=== PATIENT | male | born 1930 | race Caucasian/White ===

== ENCOUNTER 2017-07-31 12:29 | Emergency (ER) | payer MEDICARE, OTHER ==
--- NOTE | 2017-07-31 14:25 | ER Document Report ---
ED Medical Screen (RME) - General Chief Complaint: Diarrhea Stated Complaint: DIARRHEA Time Seen by Provider: 07/31/17 14:16 Notes: RME DISCLOSURE I have seen this patient as part of a Rapid Medical Evaluation and, if applicable, placed any initially appropriate orders. The patient will be seen and fully evaluated, including a full history and physical exam, by a provider ( in Main ED or Fast Track) when a room becomes available. 86M here w c/o diarrhea past 4 weeks. No n/v fevers chills abd pain. No recent antibiotics or hospitalizations. He has not been camping or travel to a foreign country. No known sick contacts. No prior history of colitis EXAM No abdominal tenderness to palpation TRAVEL OUTSIDE OF THE [place] IN LAST 30 DAYS: No - Related Data Allergies/Adverse Reactions: cephalexin [From Keflex] Allergy (Verified 07/31/17 14:13) gatifloxacin [From Tequin] Allergy (Verified 07/31/17 14:13) Penicillins Allergy (Verified 07/31/17 14:13) red dye Allergy (Verified 07/31/17 14:13) Past Medical History - Social History Chew tobacco use (# tins/day): No Frequency of alcohol use: None Drug Abuse: None - Past Medical History Cardiac Medical History: Reports: Hx Congestive Heart Failure, Hx Heart Attack, Hx Hypertension Renal/ Medical History: Denies: Hx Peritoneal Dialysis Past Surgical History: Reports: Hx Cardiac Surgery - "open heart" x2 Physical Exam - Vital signs Vitals: Temp Pulse Resp BP Pulse Ox 97.8 F 60 20 104/59 L 97 07/31/17 13:11 07/31/17 13:11 07/31/17 13:11 07/31/17 13:11 07/31/17 13:11 Course - Vital Signs Vital signs: Temp Pulse Resp BP Pulse Ox 97.8 F 60 20 104/59 L 97 07/31/17 13:11 07/31/17 13:11 07/31/17 13:11 07/31/17 13:11 07/31/17 13:11
[2017-07-31 15:22] LABS: ABSOLUTE BASOPHILS # (AUTO) 0.1 10^3/uL (0.0-0.2); ABSOLUTE EOSINOPHILS # (AUTO) 0.4 10^3/uL (0.0-0.6); ABSOLUTE LYMPHOCYTES (AUTO) 1.6 10^3/uL (0.5-4.7); ABSOLUTE MONOCYTES (AUTO) 0.8 10^3/uL (0.1-1.4); ABSOLUTE NEUT (AUTO) 6.6 10^3/uL (1.7-8.2); BASOPHILS % (AUTO) 0.7 % (0-2); EOSINOPHILS % (AUTO) 4.4 % (0-6); HEMATOCRIT 42.6 % (37.9-51.0); HEMOGLOBIN 14.2 g/dL (13.5-17.0); LYMPHOCYTES % (AUTO) 16.7 % (13-45); MEAN CORPUSCULAR HEMOGLOBIN 31.4 pg (27.0-33.4); MEAN CORPUSCULAR HGB CONC 33.4 g/dL (32.0-36.0); MEAN CORPUSCULAR VOLUME 94 fl (80-97); MONOCYTES % (AUTO) 8.9 % (3-13); PLATELET COUNT 120 10^3/uL (150-450); RED BLOOD COUNT 4.53 10^6/uL (4.35-5.55); SEGMENTED NEUTROPHILS % (AUTO) 69.3 % (42-78); TOTAL CELLS COUNTED % (AUTO) 100 %; WHITE BLOOD COUNT 9.5 10^3/uL (4.0-10.5)
[2017-07-31 15:37] LABS: ALANINE AMINOTRANSFERASE 30 U/L (21-72); ALBUMIN 4.4 g/dL (3.5-5.0); ALKALINE PHOSPHATASE 63 U/L (38-126); ANION GAP 11 (5-19); ASPARTATE AMINO TRANSFERASE 25 U/L (17-59); BILIRUBIN,DIRECT 0.5 mg/dL (0.0-0.4); BLOOD UREA NITROGEN 49 mg/dL (7-20); CALCIUM 10.2 mg/dL (8.4-10.2); CARBON DIOXIDE 24 mmol/L (22-30); CHLORIDE 109 mmol/L (98-107); GLUCOSE 77 mg/dL (75-110); LIPASE 122.3 U/L (23-300); MAGNESIUM 2.3 mg/dL (1.6-2.3); PHOSPHORUS 3.8 mg/dL (2.5-4.5); POTASSIUM 5.5 mmol/L (3.6-5.0); SODIUM 143.6 mmol/L (137-145); TOTAL PROTEIN 6.5 g/dL (6.3-8.2)
--- NOTE | 2017-07-31 16:46 | ER Document Report ---
ED General - General Mode of Arrival: Ambulatory Information source: Patient TRAVEL OUTSIDE OF THE [place] IN LAST 30 DAYS: No <JULIETTE JULES - Last Filed: 07/31/17 17:02> <CLARITA HELMS - Last Filed: 07/31/17 18:44> - General Chief Complaint: Diarrhea Stated Complaint: DIARRHEA Time Seen by Provider: 07/31/17 14:16 Notes: Patient is an 86 year old male with a history of CHF, Type 2 Diabetes, hypertension, open heart surgery x2 presents to the emergency department complaining of diarrhea onset 4 weeks. Patient states that he has had loose stool everyday, once a day for the last 4 weeks. Patient states he would have this episode around 1000 everyday. Patient states there was approximately 3 days where he did not have diarrhea. Patient denies blood in stool or mucus, nausea, vomiting, chills, abdominal pain, or changes in food. Patient also denies any new medications, taking antibiotics, or recent travels. Patient states he has taken Imodium to alleviate his symptoms. (JULIETTE JULES) - Related Data Allergies/Adverse Reactions: cephalexin [From Keflex] Allergy (Verified 07/31/17 14:13) gatifloxacin [From Tequin] Allergy (Verified 07/31/17 14:13) Penicillins Allergy (Verified 07/31/17 14:13) red dye Allergy (Verified 07/31/17 14:13) Past Medical History - General Information source: Patient - Social History Smoking Status: Former Smoker Chew tobacco use (# tins/day): No Frequency of alcohol use: None Drug Abuse: None Patient has suicidal ideation: No Patient has homicidal ideation: No - Past Medical History Cardiac Medical History: Reports: Hx Congestive Heart Failure, Hx Heart Attack, Hx Hypertension Past Surgical History: Reports: Hx Cardiac Surgery - "open heart" x2 <JULIETTE JULES - Last Filed: 07/31/17 17:02> - Social History Family History: Reviewed & Not Pertinent <CLARITA HELMS - Last Filed: 07/31/17 18:44> Review of Systems - Review of Systems Constitutional: No symptoms reported EENT: No symptoms reported Cardiovascular: No symptoms reported Respiratory: No symptoms reported Gastrointestinal: See HPI, Diarrhea Genitourinary: No symptoms reported Male Genitourinary: No symptoms reported Musculoskeletal: No symptoms reported Skin: No symptoms reported Hematologic/Lymphatic: No symptoms reported Neurological/Psychological: No symptoms reported -: Yes All other systems reviewed and negative <JULIETTE JULES - Last Filed: 07/31/17 17:02> Physical Exam <JULIETTE JULES - Last Filed: 07/31/17 17:02> <CLARITA HELMS - Last Filed: 07/31/17 18:44> - Vital signs Vitals: Temp Pulse Resp BP Pulse Ox 97.8 F 60 20 104/59 L 97 07/31/17 13:11 07/31/17 13:11 07/31/17 13:11 07/31/17 13:11 07/31/17 13:11 - Notes Notes: GENERAL: Alert, interacts well. No acute distress. HEAD: Normocephalic, atraumatic. EYES: Pupils equal, round, and reactive to light. Extraocular movements intact. ENT: Oral mucosa moist, tongue midline. NECK: Full range of motion. Supple. Trachea midline. LUNGS: Clear to auscultation bilaterally, no wheezes, rales, or rhonchi. No respiratory distress. HEART: Faint heart sounds, irregularly irregular. No murmurs, gallops, or rubs. ABDOMEN: Soft, non-tender. Non-distended. Bowel sounds present in all 4 quadrants. EXTREMITIES: Moves all 4 extremities spontaneously. No edema, radial and dorsalis pedis pulses 2/4 bilaterally. No cyanosis. NEUROLOGICAL: Alert and oriented x3. Normal speech. PSYCH: Normal affect, normal mood. SKIN: Warm, dry, normal turgor. No rashes or lesions noted. (JULIETTE JULES) Course - Laboratory Result Diagrams: 07/31/17 15:00 07/31/17 15:00 <JULIETTE JULES - Last Filed: 07/31/17 17:02> - Laboratory Result Diagrams: 07/31/17 15:00 07/31/17 15:00 <CLARITA HELMS - Last Filed: 07/31/17 18:44> - Re-evaluation Re-evalutation: 07/31/17 17:30 CBC grossly unremarkable, no anemia, he does have slightly low platelets at 120 , CMP shows elevated potassium at 5.5 and acute on chronic renal failure with a BUN of 49 and creatinine of 2.55, I cannot tell how acute this truly is as the last kidney function we have on him is from 2016. Patient thinks he has a history of kidney failure but does not know how bad it is. Laboratory studies are otherwise unremarkable. EKG is being checked to look for peaked T waves. 07/31/17 18:43 No peak T waves (CLARITA HELMS) - Vital Signs Vital signs: Temp Pulse Resp BP Pulse Ox 97.8 F 58 L 18 129/81 H 98 07/31/17 13:11 07/31/17 18:36 07/31/17 18:36 07/31/17 18:36 07/31/17 18:36 - Laboratory Laboratory results interpreted by me: 07/31/17 07/31/17 15:00 15:00 RDW 15.0 H Plt Count 120 L Potassium 5.5 H Chloride 109 H BUN 49 H Creatinine 2.55 H Est GFR ( Amer) 29 L Est GFR (Non-Af Amer) 24 L Direct Bilirubin 0.5 H - EKG Interpretation by Me Additional EKG results interpreted by me: 07/31/17 17:54 EKG shows atrial paced complexes at a rate of 60, right bundle branch block and left posterior fascicular block, no ST segment elevations or depressions per my interpretation. (CLARITA HELMS) Discharge <JULIETTE JULES - Last Filed: 07/31/17 17:02> <CLARITA HELMS - Last Filed: 07/31/17 18:44> - Discharge Clinical Impression: Hyperkalemia, diminished renal excretion Diarrhea Qualifiers: Diarrhea type: unspecified type Qualified Code(s): R19.7 - Diarrhea, unspecified Acute on chronic renal failure Qualifiers: Acute renal failure type: unspecified Chronic kidney disease stage: unspecified stage Qualified Code(s): N17.9 - Acute kidney failure, unspecified Condition: Stable Disposition: HOME, SELF-CARE Additional Instructions: I am not certain why you having diarrhea. We do not have any evidence of an infectious cause of diarrhea at this time. I did do a little research and the MSM supplement that you are taking can sometimes cause diarrhea. Please consider stopping the supplement. It will be very important for you to follow-up with a GI doctor if your diarrhea persists. The next time you have a loose bowel movement please bring a sample of it to the lab to be tested for C. difficile and other forms of infectious diarrhea. Please follow-up with a GI doc within the next month if your diarrhea persists. Today your potassium was slightly elevated. Please avoid taking any potassium containing supplements and avoid foods that are high in potassium such as bananas and potatoes and orange juice. Today your lab work had some kidney damage on it. You will need to have your kidney function and your potassium rechecked within a week. Forms: Follow-Up Laboratory Testing Referrals: PORTER VILLAVICENCIO MD [ACTIVE STAFF] - Follow up in 1 month TAYLER MARMOLEJO MD [NO LOCAL MD] - Follow up in 1 week Scribe Attestation: 07/31/17 18:44 I personally performed the services described in the documentation, reviewed and edited the documentation which was dictated to the scribe in my presence, and it accurately records my words and actions. (CLARITA HELMS) Scribe Documentation - Scribe Written by Gordo:: Gordo Reynoso, 07/31/2017 17:05 acting as scribe for :: Alma <JULIETTE JULES - Last Filed: 07/31/17 17:02>
[2017-07-31 18:37] VITALS: BP 129/81
--- NOTE | 2017-08-01 09:31 | EKG REPORT ---
SEVERITY:- ABNORMAL ECG - ATRIAL-PACED COMPLEXES RBBB AND LPFB : Confirmed by: Alesha Jacobo 01-Aug-2017 09:30:35
== END 2017-07-31 18:37 | disposition home or self-care (01) ==
LOC: ER 12:29
DX: R19.7 Diarrhea, unspecified (principal); E11.22 Type 2 diabetes mellitus with diabetic chronic kidney disease; I12.9 Hypertensive chronic kidney disease with stage 1 through stage 4 chronic kidney disease, or unspecified chronic kidney disease; N18.9 Chronic kidney disease, unspecified; N17.9 Acute kidney failure, unspecified; E87.5 Hyperkalemia; I45.2 Bifascicular block; I25.2 Old myocardial infarction; Z88.1 Allergy status to other antibiotic agents; Z88.0 Allergy status to penicillin; Z91.048 Other nonmedicinal substance allergy status; Z87.891 Personal history of nicotine dependence
CPT/HCPCS: 36415; 80053; 83690; 83735; 84100; 85025; 93005; 93010; 99284

== ENCOUNTER 2018-07-22 17:47 | Inpatient (IN) | payer MEDICARE ==
--- NOTE | 2018-07-22 18:00 | ER Document Report ---
ED Fall - General Chief Complaint: Hip Pain Stated Complaint: FALL/LEFT HIP PAIN Time Seen by Provider: 07/22/18 17:59 Primary Care Provider: CLARITA HELMS DO [ACTIVE PROVISIONAL STAFF] - Follow up as needed Mode of Arrival: Stretcher Information source: Patient Notes: HISTORY OF PRESENT ILLNESS: Patient is an 87-year-old male with a past medical history of atrial fibrillation, heart failure, and coronary artery disease who presents with left hip pain after mechanical fall in the [employer] parking lot. Patient denies hitting his head or having any other injuries, no loss of consciousness, no vision changes, no weakness of the extremities, no numbness/tingling of the extremities. Location: Left hip Onset: Sudden Provocation: Bearing weight, movement Quality: Aching, soreness Radiation: Down the right leg Severity: Mild currently, moderate to severe when trying to walk Timing: Episodic occurring prior to arrival Events leading up to the injury: "I think I stumbled pushing the cart in the parking lot, landed on the left hip and was unable to stand" REVIEW OF SYSTEMS: CONSTITUTIONAL : Denies fever or chills, no sweats. Denies recent illness. EENT: Denies eye, ear, throat, or mouth pain or symptoms. Denies nasal or sinus congestion. CARDIOVASCULAR: Denies chest pain. RESPIRATORY: Denies cough, cold, or chest congestion. Denies shortness of b reath, difficulty breathing, or wheezing. GASTROINTESTINAL: Denies abdominal pain. Denies nausea, vomiting, or diarrhea. Denies constipation. GENITOURINARY: Denies difficulty urinating, painful urination, burning, frequency, or blood in urine. MUSCULOSKELETAL: Positive for left hip pain. Denies neck or back pain. SKIN: Denies rash or skin lesions. HEMATOLOGIC : Denies easy bruising or bleeding. LYMPHATIC: Denies swollen, enlarged glands. NEUROLOGICAL: Denies altered mental status or loss of consciousness. Denies headache. Denies weakness or paralysis or loss of use of either side. Denies problems with gait or speech. Denies sensory or motor loss. PSYCHIATRIC: Denies anxiety or stress or depression. All other systems reviewed and negative. PHYSICAL EXAMINATION: GENERAL: Well-appearing, well-nourished and in no acute distress. HEAD: Atraumatic, normocephalic. No scalp deformity, depression, or crepitance. EYES: Pupils are 3 mm and equal/round/reactive to light, extraocular movements intact, sclera anicteric, conjunctiva are normal. ENT: Nares patent bilaterally, oropharynx clear without exudates or palatal petechia. Moist mucous membranes. No tonsil hypertrophy. NECK: Normal range of motion, supple without lymphadenopathy. LUNGS: Breath sounds present, equal, and clear to auscultation bilaterally. No wheezes, rales, or rhonchi. HEART: Regular rate and rhythm without murmurs, rubs, or gallops. 2+ peripheral pulses. Normal capillary refill. ABDOMEN: Soft, nontender, nondistended. Normoactive bowel sounds. No guarding, no rebound. No masses appreciated. BACK: Normal contour, no midline tenderness. Rectal exam deferred. GENITAL: Deferred. EXTREMITIES: Reduced range of motion to the left leg secondary to pain, no obvious deformity or shortening or rotation of the left leg. Mild pain on palpation to the left lateral hip, no ecchymoses or abrasions noted. No pitting or edema. No cyanosis. NEUROLOGICAL: No focal neurological deficits. Moves all extremities spontaneously and on command. PSYCH: Normal mood, normal affect. No suicidal thoughts/ideations. No homocidal thoughts/ideations. No hallucinations. SKIN: Warm, dry, normal turgor, no rashes or lesions noted. ASSESSMENT AND PLAN: This patient is an 87-year-old male who presents with pain to the left hip. Concern for fracture versus contusion versus less likely dislocation. 1. Will obtain x-rays and reassess after pain medications. 2. Will obtain orthopedic consult if x-rays show acute injury. TRAVEL OUTSIDE OF THE [place] IN LAST 30 DAYS: No - Related data Allergies/Adverse Reactions: cephalexin [From Keflex] Allergy (Verified 07/31/17 14:13) gatifloxacin [From Tequin] Allergy (Verified 07/31/17 14:13) Penicillins Allergy (Verified 07/31/17 14:13) red dye Allergy (Verified 07/31/17 14:13) Past Medical History - General Information source: Patient - Social History Smoking Status: Never Smoker Chew tobacco use (# tins/day): No Frequency of alcohol use: None Drug Abuse: None Lives with: Family Family History: Reviewed & Not Pertinent Patient has suicidal ideation: No Patient has homicidal ideation: No - Past Medical History Cardiac Medical History: Reports: Hx Congestive Heart Failure, Hx Heart Attack, Hx Hypertension Pulmonary Medical History: Reports: None EENT Medical History: Reports: None Neurological Medical History: Reports: None Endocrine Medical History: Reports: None Renal/ Medical History: Reports: None. Denies: Hx Peritoneal Dialysis Malignancy Medical History: Reports None GI Medical History: Reports: None Musculoskeletal Medical History: Reports None Skin Medical History: Reports None Psychiatric Medical History: Reports: None Traumatic Medical History: Reports: None Infectious Medical History: Reports: None Past Surgical History: Reports: Hx Cardiac Surgery - "open heart" x2 - Immunizations Immunizations up to date: Yes Hx Diphtheria, Pertussis, Tetanus Vaccination: Yes History of Influenza Vaccine for 03/2017 - 08/2017 Season: Yes Course - Re-evaluation Re-evalutation: 07/22/18 20:18 X-ray shows mildly displaced left acetabular fracture. Orthopedic consult has been obtained and they recommend preoperative workup with a CT scan of the pelvis for operative planning. Patient is admitted to the hospitalist. - Laboratory Result Diagrams: 07/22/18 19:40 07/22/18 19:40 - Diagnostic Test Radiology reviewed: Image reviewed, Reports reviewed - EKG Interpretation by Ct EKG shows normal: Sinus rhythm Rate: Normal Rhythm: A.Fib [place]/QRS: RBBB Voltage: No: Increased voltage, Consistant with LVH, Decreased voltage, Throughout, Limb leads P Waves: No: ALEX, LAE, Absent, AV Dissociation, Other Heart block present: No: 1st Degree, Mobitz 1, Mobitz 2, CHB (3rd degree block) When compared to previous EKG there are: No significant change - Consults Dr. Jules Time consulted: 19:17 - obtain CT pelvis and admit to the Hospitalist Consulted provider: will see as inpatient Dr. Hemphill Time consulted: 19:39 - will admit Consulted provider: will come to ER Discharge - Discharge Clinical Impression: Closed left acetabular fracture Qualifiers: Encounter type: initial encounter Sublocation of acetabulum: unspecified portion of acetabulum Fracture alignment: displaced Qualified Code(s): S32.402A - Unspecified fracture of left acetabulum, initial encounter for closed fracture Condition: Good Admitting Provider: Hospitalist Unit Admitted: Telemetry Referrals: KLOCEK,CLARITA, DO [ACTIVE PROVISIONAL STAFF] - Follow up as needed
[2018-07-22] MEDS ORDERED: MORPHINE SULFATE 10 MG/ML INJ IV ONE (18:48)
[2018-07-22] MEDS ORDERED: ONDANSETRON HCL INJ/PF 4 MG/2 ML SDV IV ONE (18:48)
--- NOTE | 2018-07-22 18:50 | RADIOLOGY REPORT (SQ) ---
EXAM DESCRIPTION: HIP LEFT AP/LATERAL COMPLETED DATE/TIME: 07/22/2018 6:32 pm REASON FOR STUDY: bed 15 left hip s/p fall COMPARISON: None. NUMBER OF VIEWS: Two views. TECHNIQUE: AP pelvis and additional frog-leg view of the left hip. LIMITATIONS: None. FINDINGS: MINERALIZATION: Normal. LEFT HIP: Mildly displaced fracture of the acetabulum. No fracture or dislocation of the femoral hea d. No worrisome bone lesions. RIGHT HIP: No fracture or dislocation. No worrisome bone lesions. PUBIS AND ISCHIUM: No fracture. PELVIS: Mildly displaced fracture of the left acetabulum. SACRUM: No fracture or dislocation. No worrisome bone lesions. LOWER LUMBAR SPINE: No fracture or dislocation. No worrisome bone lesions. No significant disc disea se. SOFT TISSUES: No findings. OTHER: Metallic implants in the prostate. IMPRESSION: MILDLY DISPLACED FRACTURE OF THE LEFT ACETABULUM. TECHNICAL DOCUMENTATION: JOB ID: [id number] [employer]- All Rights Reserved Reading location - IP/workstation name: [email or web address]
--- NOTE | 2018-07-22 19:16 | RADIOLOGY REPORT (SQ) ---
EXAM DESCRIPTION: CHEST SINGLE VIEW COMPLETED DATE/TIME: 07/22/2018 7:02 pm REASON FOR STUDY: Preop COMPARISON: None. EXAM PARAMETERS: NUMBER OF VIEWS: One view. TECHNIQUE: Single frontal radiographic view of the chest acquired. RADIATION DOSE: NA LIMITATIONS: None. FINDINGS: LUNGS AND PLEURA: No opacities, masses or pneumothorax. No pleural effusion. MEDIASTINUM AND HILAR STRUCTURES: No masses. Contour normal. HEART AND VASCULAR STRUCTURES: No cardiomegaly. Old sternotomy and CABG BONES: No acute findings. HARDWARE: Left-sided dual lead pacemaker OTHER: No other significant finding. 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 No acute infiltrates TECHNICAL DOCUMENTATION: JOB ID: [id number] [employer]- All Rights Reserved Reading location - IP/workstation name: [email or web address]
[2018-07-22 20:08] LABS: INTERNATIONAL RATION (INR) 1.25; PROTHROMBIN TIME 16.3 SEC (11.4-15.4)
[2018-07-22 20:09] LABS: PARTIAL THROMBOPLASTIN TIME 40.3 SEC (23.5-35.8)
[2018-07-22] MEDS ORDERED: MAG HYDROX/AL HYDROX/SIMETH SUSP 30 ML UDCUP PO PRN (20:09)
[2018-07-22] MEDS ORDERED: ONDANSETRON HCL INJ/PF 4 MG/2 ML SDV IV PRN (20:09)
[2018-07-22] MEDS ORDERED: MAGNESIUM HYDROXIDE SUSP 30 ML UDCUP PO PRN (20:09)
[2018-07-22] MEDS ORDERED: IPRATROPIUM/ALBUTEROL 0.5-2.5 MG/3 ML AMPUL NEB PRN (20:09)
[2018-07-22] MEDS ORDERED: ACETAMINOPHEN 325 MG TABLET PO PRN (20:09)
[2018-07-22 20:13] LABS: ABSOLUTE BASOPHILS # (AUTO) 0.1 10^3/uL (0.0-0.2); ABSOLUTE EOSINOPHILS # (AUTO) 0.1 10^3/uL (0.0-0.6); ABSOLUTE LYMPHOCYTES (AUTO) 0.8 10^3/uL (0.5-4.7); ABSOLUTE MONOCYTES (AUTO) 1.1 10^3/uL (0.1-1.4); ABSOLUTE NEUT (AUTO) 12.2 10^3/uL (1.7-8.2); BASOPHILS % (AUTO) 0.5 % (0-2); HEMOGLOBIN 13.8 g/dL (13.5-17.0); LYMPHOCYTES % (AUTO) 5.7 % (13-45); MEAN CORPUSCULAR HEMOGLOBIN 30.9 pg (27.0-33.4); MEAN CORPUSCULAR HGB CONC 33.6 g/dL (32.0-36.0); MEAN CORPUSCULAR VOLUME 92 fl (80-97); MONOCYTES % (AUTO) 7.6 % (3-13); RED BLOOD COUNT 4.46 10^6/uL (4.35-5.55); SEGMENTED NEUTROPHILS % (AUTO) 85.2 % (42-78); TOTAL CELLS COUNTED % (AUTO) 100 %; WHITE BLOOD COUNT 14.3 10^3/uL (4.0-10.5)
[2018-07-22 20:14] LABS: ALANINE AMINOTRANSFERASE 20 U/L (21-72); ALBUMIN 4.1 g/dL (3.5-5.0); ALKALINE PHOSPHATASE 57 U/L (38-126); ANION GAP 8 (5-19); ASPARTATE AMINO TRANSFERASE 24 U/L (17-59); BILIRUBIN,DIRECT 0.3 mg/dL (0.0-0.4); BILIRUBIN,TOTAL 0.9 mg/dL (0.2-1.3); BLOOD UREA NITROGEN 43 mg/dL (7-20); CALCIUM 9.2 mg/dL (8.4-10.2); CARBON DIOXIDE 26 mmol/L (22-30); CHLORIDE 110 mmol/L (98-107); CREATINE KINASE 34 U/L (55-170); GLUCOSE 164 mg/dL (75-110); POTASSIUM 5.4 mmol/L (3.6-5.0); SODIUM 143.6 mmol/L (137-145)
[2018-07-22 20:16] LABS: APPEARANCE,URINE SLIGHTLY-CLOUDY; BILIRUBIN,URINE NEGATIVE (NEGATIVE); COLOR,URINE YELLOW; GLUCOSE, URINE NEGATIVE (NEGATIVE); KETONES,URINE NEGATIVE (NEGATIVE); LEUKOCYTE ESTERASE,URINE NEGATIVE (NEGATIVE); NITRITE,URINE NEGATIVE (NEGATIVE); PROTEIN,URINE NEGATIVE (NEGATIVE); URINE SPECIFIC GRAVITY 1.016; UROBILINOGEN,URINE NEGATIVE mg/dL (<2.0)
--- NOTE | 2018-07-22 20:24 | RADIOLOGY REPORT (SQ) ---
EXAM DESCRIPTION: CT PELVIS WITHOUT IV CONTRAST COMPLETED DATE/TME: 07/22/2018 19:17 CLINICAL HISTORY: 87 years, Male, Pelvis fracture COMPARISON: Plain films from today's date TECHNIQUE: 510 Images stored on PACS. All CT scanners at this facility use dose modulation, iterative reconstruction, and/or weight based dosing when appropriate to reduce radiation dose to as low as reasonably achievable (ALARA). [facility]: Dose Right [facility]: CareDose [facility]: Dose Right [facility]: Teradose 4D [facility]: [employer] LIMITATIONS: None. FINDINGS: Limited evaluation of intrapelvic structures shows moderate to severe atheromatous changes. Large amount of stool in the colon. Sigmoid diverticulosis. Multiple prostate seeds are present in the pelvis. There is a small amount of hemoperitoneum with blood products extending along the left paracolic gutter into the pelvis. Inflammatory changes and a poorly defined hematoma surrounds the urinary bladder. Subjective urinary bladder wall thickening. The possibility of urinary bladder injury cannot be entirely excluded. As described on plain film, there is comminuted mildly displaced fracture deformities of the left bony acetabulum/ileum. Hematoma formation of the left iliopsoas musculature. Minimally displaced fracture fragments are present. No discrete femur fracture. Degenerative changes lumbar spine. IMPRESSION: Comminuted, mildly displaced fracture deformity of the left ilium/bony acetabulum with mildly displaced/avulsed fracture fragments. Associated hematoma formation of the left iliopsoas musculature. There is also inflammation with hematoma extending into the pelvis and surrounding the urinary bladder. Subjective urinary bladder wall thickening. Correlate with urinalysis. The possibility of urinary bladder injury is not entirely excluded. TECHNICAL DOCUMENTATION: Quality ID # [id number]: Final reports with documentation of one or more dose reduction techniques (e.g., Automated exposure control, adjustment of the mA and/or kV according to patient size, use of iterative reconstruction technique) copyright 2010 [employer]- All Rights Reserved
[2018-07-22 20:26] LABS: CREATINE KINASE MB 0.43 ng/mL (<4.55); TROPONIN I 0.024 ng/mL
[2018-07-22 20:30] LABS: PLATELET COUNT 99 10^3/uL (150-450)
[2018-07-22] MEDS ORDERED: LACTULOSE SYRUP 20 GM/30 ML UDCUP PO ONE (20:32)
[2018-07-22] MEDS ORDERED: NORMAL SALINE 1000 ML 1,000 ML IV SCH (20:45)
[2018-07-22] MEDS ORDERED: (PENDING PHARMACY ID) (Carvedilol [Coreg 25 Mg Tablet] 1 TAB) PO SCH (22:00)
[2018-07-22] MEDS: CARVEDILOL 12.5 MG TABLET PO SCH (22:04)
[2018-07-22] MEDS: HEPARIN SOD (PORCINE) 5,000 UNIT/ML 1 ML SYRINGE SUBCUT SCH (23:46)
--- NOTE | 2018-07-23 05:05 | PDOC H&P ---
History of Present Illness Admission Date/PCP: 07/22/18 20:07 MCKAY CHOUDHARY DO Patient complains of: Left hip pain History of Present Illness: SOHAIL GALVAN is a 87 year old male with a past medical history of coronary artery disease, congestive heart failure, atrial fibrillation status post permanent pacemaker AICD placement, diabetes and stage IV chronic kidney disease. He presents after tripping and falling to the ground striking his left hip resulting in pain. He denies prior chest pain palpitations, nausea vomiting or subsequent loss of consciousness or head injury. He denies weakness, numbness to the extremities. In the emergency room he is found to have thrombocytopenia of 99, hyperkalemia 5.4, creatinine of 1.8 and is referred to the hospitalist for admission. He denies recent falls, new medications, history of complication with anesthesia . Prior to his injury he was able to walk with a walker between 20 and 30 feet. Past Medical History Cardiac Medical History: Reports: Atrial Fibrillation, Congestive Heart Failure, Myocardial Infarction, Hypertension Denies: Pulmonary Embolism Pulmonary Medical History: Reports: None EENT Medical History: Reports: None Neurological Medical History: Reports: None Endocrine Medical History: Reports: None Renal/ Medical History: Reports: Chronic Kidney Disease Malignancy Medical History: Reports: None GI Medical History: Reports: None Musculoskeltal Medical History: Reports: None Skin Medical History: Reports: None Psychiatric Medical History: Reports: None Traumatic Medical History: Reports: None Hematology: Reports: Anemia Infectious Medical History: Reports: None Past Surgical History Past Surgical History: Reports: Internal Defibrillator, Pacemaker Social History Information Source: Patient Lives with: Family Smoking Status: Never Smoker Frequency of Alcohol Use: None Drugs: None - Advance Directive Resuscitation Status: Full Code Family History Family History: Hypertension Parental Family History Reviewed: Yes Children Family History Reviewed: Yes Sibling(s) Family History Reviewed.: Yes Medication/Allergy Home Medications: Allopurinol [Zyloprim 300 mg Tablet] 300 mg PO DAILY 07/22/18 Aspirin [Adult Aspirin] 81 mg PO DAILY 07/22/18 Carvedilol [Coreg 25 mg Tablet] 1 tab PO Q12 07/22/18 Meloxicam [Mobic] 7.5 mg PO DAILY 07/22/18 Sacubitril/Valsartan [Entresto 97 mg/103 mg Tablet] 1 tab PO BID 07/22/18 Allergies/Adverse Reactions: prednisone Allergy (Mild, Verified 07/22/18 23:59) Hives cephalexin [From Keflex] Allergy (Verified 07/31/17 14:13) gatifloxacin [From Tequin] Allergy (Verified 07/31/17 14:13) Penicillins Allergy (Verified 07/31/17 14:13) red dye Allergy (Verified 07/31/17 14:13) Review of Systems Constitutional: ABSENT: chills, fever(s), headache(s), weight gain, weight loss Eyes: ABSENT: visual disturbances Ears: ABSENT: hearing changes Cardiovascular: ABSENT: chest pain, dyspnea on exertion, edema, orthropnea, palpitations Respiratory: ABSENT: cough, hemoptysis Gastrointestinal: ABSENT: abdominal pain, constipation, diarrhea, hematemesis, hematochezia, nausea, vomiting Genitourinary: ABSENT: dysuria, hematuria Musculoskeletal: ABSENT: joint swelling Integumentary: ABSENT: rash, wounds Neurological: ABSENT: abnormal gait, abnormal speech, confusion, dizziness, focal weakness, syncope Psychiatric: ABSENT: anxiety, depression, homidical ideation, suicidal ideation Endocrine: ABSENT: cold intolerance, heat intolerance, polydipsia, polyuria Hematologic/Lymphatic: ABSENT: easy bleeding, easy bruising Physical Exam Vital Signs: Temp Pulse Resp BP Pulse Ox 60 20 127/77 H 94 07/23/18 02:00 07/22/18 22:01 07/22/18 22:00 07/22/18 22:01 Intake & Output 07/21/18 07/22/18 07/23/18 11:59 11:59 11:59 Weight 97.522 kg General appearance: PRESENT: cooperative, mild distress, well-developed, well- nourished Head exam: PRESENT: atraumatic, normocephalic Eye exam: PRESENT: conjunctiva pink, EOMI, PERRLA. ABSENT: scleral icterus Ear exam: PRESENT: normal external ear exam Mouth exam: PRESENT: moist, tongue midline Neck exam: ABSENT: carotid bruit, JVD, lymphadenopathy, thyromegaly Respiratory exam: PRESENT: clear to auscultation galo. ABSENT: rales, rhonchi, wheezes Cardiovascular exam: PRESENT: RRR. ABSENT: diastolic murmur, rubs, systolic murmur Pulses: PRESENT: normal dorsalis pedis pul Vascular exam: PRESENT: normal capillary refill GI/Abdominal exam: PRESENT: normal bowel sounds, soft. ABSENT: distended, guarding, mass, organolmegaly, rebound, tenderness Rectal exam: PRESENT: deferred Extremities exam: PRESENT: tenderness, +1 edema. ABSENT: calf tenderness, clubbing, full ROM - Left hip pain with range of motion, pedal edema Neurological exam: PRESENT: alert, awake, oriented to person, oriented to place, oriented to time, oriented to situation, CN II-XII grossly intact. ABSENT: motor sensory deficit Psychiatric exam: PRESENT: appropriate affect, normal mood. ABSENT: homicidal ideation, suicidal ideation Skin exam: PRESENT: dry, intact, warm. ABSENT: cyanosis, rash Results Laboratory Results: 07/22/18 19:40 07/22/18 19:40 07/22/18 07/22/18 07/22/18 19:38 19:40 19:40 WBC 14.3 H RBC 4.46 Hgb 13.8 Hct 41.0 MCV 92 MCH 30.9 MCHC 33.6 RDW 15.0 H Plt Count 99 L Seg Neutrophils % 85.2 H Lymphocytes % 5.7 L Monocytes % 7.6 Eosinophils % 1.0 Basophils % 0.5 Absolute Neutrophils 12.2 H Absolute Lymphocytes 0.8 Absolute Monocytes 1.1 Absolute Eosinophils 0.1 Absolute Basophils 0.1 Sodium 143.6 Potassium 5.4 H Chloride 110 H Carbon Dioxide 26 Anion Gap 8 BUN 43 H Creatinine 1.85 H Est GFR ( Amer) 42 L Est GFR (Non-Af Amer) 35 L Glucose 164 H Calcium 9.2 Total Bilirubin 0.9 AST 24 ALT 20 L Alkaline Phosphatase 57 Total Protein 6.0 L Albumin 4.1 Urine Color YELLOW Urine Appearance SLIGHTLY-CLOUDY Urine pH 5.0 Ur Specific [place] 1.016 Urine Protein NEGATIVE Urine Glucose (UA) NEGATIVE Urine Ketones NEGATIVE Urine Blood SMALL H Urine Nitrite NEGATIVE Ur Leukocyte Esterase NEGATIVE Urine WBC (Auto) 1 Urine RBC (Auto) 2 Blood Type Antibody Screen 07/22/18 19:40 WBC RBC Hgb Hct MCV MCH MCHC RDW Plt Count Seg Neutrophils % Lymphocytes % Monocytes % Eosinophils % Basophils % Absolute Neutrophils Absolute Lymphocytes Absolute Monocytes Absolute Eosinophils Absolute Basophils Sodium Potassium Chloride Carbon Dioxide Anion Gap BUN Creatinine Est GFR ( Amer) Est GFR (Non-Af Amer) Glucose Calcium Total Bilirubin AST ALT Alkaline Phosphatase Total Protein Albumin Urine Color Urine Appearance Urine pH Ur Specific [place] Urine Protein Urine Glucose (UA) Urine Ketones Urine Blood Urine Nitrite Ur Leukocyte Esterase Urine WBC (Auto) Urine RBC (Auto) Blood Type O NEGATIVE Antibody Screen NEGATIVE 07/22/18 07/22/18 19:40 19:40 Creatine Kinase 34 L CK-MB (CK-2) 0.43 Troponin I 0.024 Impressions: Hip X-Ray 07/22/18 00:00 IMPRESSION: MILDLY DISPLACED FRACTURE OF THE LEFT ACETABULUM. Chest X-Ray 07/22/18 18:47 IMPRESSION: Old sternotomy and CABG with pacemaker. No acute infiltrates Pelvis CT 07/22/18 19:17 IMPRESSION: Comminuted, mildly displaced fracture deformity of the left ilium/bony acetabulum with mildly displaced/avulsed fracture fragments. Associated hematoma formation of the left iliopsoas musculature. There is also inflammation with hematoma extending into the pelvis and surrounding the urinary bladder. Subjective urinary bladder wall thickening. Correlate with urinalysis. The possibility of urinary bladder injury is not entirely excluded. TECHNICAL DOCUMENTATION: Quality ID # [id number]: Final reports with documentation of one or more dose reduction techniques (e.g., Automated exposure control, adjustment of the mA and/or kV according to patient size, use of iterative reconstruction technique) copyright 2011 [employer]- All Rights Reserved Assessment & Plan - Diagnosis (1) Closed left acetabular fracture Qualifiers: Encounter type: initial encounter Sublocation of acetabulum: unspecified portion of acetabulum Fracture alignment: displaced Qualified Code(s): S32.402A - Unspecified fracture of left acetabulum, initial encounter for closed fracture Is this a current diagnosis for this admission?: Yes Plan: Surgical consult, symptomatic management, heart failure compensated, continue beta-norman, no immediately reversible cardiopulmonary risks preventing orthopedic surgery. (2) Hyperkalemia Is this a current diagnosis for this admission?: Yes Plan: Without peak T waves, lactulose ordered. Follow-up chemistry (3) Congestive heart failure Is this a current diagnosis for this admission?: Yes Plan: Compensated limit volume resuscitation to 2 L (4) Thrombocytopenia Is this a current diagnosis for this admission?: Yes Plan: Baseline thrombocytopenia, follow-up CBC (5) Chronic kidney disease Is this a current diagnosis for this admission?: Yes Plan: Currently significantly prerenal fluid challenge 2 L. Follow-up chemistry - Time Time Spent: 50 to 70 Minutes - Inpatient Certification Medical Necessity: Need Close Monitoring Due to Risk of Patient Decompensation
[2018-07-23 05:40] LABS: ABSOLUTE EOSINOPHILS # (AUTO) 0.3 10^3/uL (0.0-0.6); ABSOLUTE LYMPHOCYTES (AUTO) 0.9 10^3/uL (0.5-4.7); ABSOLUTE MONOCYTES (AUTO) 0.7 10^3/uL (0.1-1.4); ABSOLUTE NEUT (AUTO) 6.4 10^3/uL (1.7-8.2); BASOPHILS % (AUTO) 0.3 % (0-2); EOSINOPHILS % (AUTO) 3.5 % (0-6); HEMATOCRIT 32.3 % (37.9-51.0); LYMPHOCYTES % (AUTO) 10.5 % (13-45); MEAN CORPUSCULAR HEMOGLOBIN 31.5 pg (27.0-33.4); MEAN CORPUSCULAR HGB CONC 34.6 g/dL (32.0-36.0); MEAN CORPUSCULAR VOLUME 91 fl (80-97); RED BLOOD COUNT 3.54 10^6/uL (4.35-5.55); RED CELL DISTRIBUTION WIDTH 15.1 % (11.5-14.0); SEGMENTED NEUTROPHILS % (AUTO) 76.7 % (42-78); TOTAL CELLS COUNTED % (AUTO) 100 %; WHITE BLOOD COUNT 8.3 10^3/uL (4.0-10.5)
[2018-07-23 05:49] LABS: HEMOGLOBIN 11.1 g/dL (13.5-17.0); PLATELET COUNT 62 10^3/uL (150-450)
[2018-07-23] MEDS: HEPARIN SOD (PORCINE) 5,000 UNIT/ML 1 ML SYRINGE SUBCUT SCH ×3 (05:49→21:53)
[2018-07-23 05:55] LABS: ANION GAP 6 (5-19); BLOOD UREA NITROGEN 43 mg/dL (7-20); CALCIUM 8.3 mg/dL (8.4-10.2); CARBON DIOXIDE 24 mmol/L (22-30); CHLORIDE 114 mmol/L (98-107); GLUCOSE 132 mg/dL (75-110); SODIUM 143.5 mmol/L (137-145)
[2018-07-23 06:18] LABS: POTASSIUM 4.4 mmol/L (3.6-5.0)
--- NOTE | 2018-07-23 07:14 | PDOC CONSULTATION ---
Consultation Consult Date: 07/23/18 Consult reason:: Left hip pain History of Present Illness Admission Date/PCP: 07/22/18 20:07 MCKAY CHOUDHARY DO History of Present Illness: SOHAIL GALVAN is a 87 year old male Patient is a 87-year-old white male known to me from previous musculoskeletal issues who has now fallen and sustained a left hip injury. He was evaluated emergency room where minimally displaced but comminuted left acetabular fracture was identified. He is admitted to the hospital service and orthopedics is co nsulted for fracture management. Past Medical History Cardiac Medical History: Reports: Atrial Fibrillation, Congestive Heart Failure, Myocardial Infarction, Hypertension Denies: Pulmonary Embolism Pulmonary Medical History: Reports: None EENT Medical History: Reports: None Neurological Medical History: Reports: None Endocrine Medical History: Reports: None Renal/ Medical History: Reports: None, Chronic Kidney Disease Malignancy Medical History: Reports: None GI Medical History: Reports: None Musculoskeltal Medical History: Reports: None Skin Medical History: Reports: None Psychiatric Medical History: Reports: None Denies: Depression Traumatic Medical History: Reports: None Hematology: Reports: Anemia Infectious Medical History: Reports: None Past Surgical History Past Surgical History: Reports: Internal Defibrillator, Pacemaker Social History Information Source: Patient, [facility] Office, [facility] Records Lives with: Family Smoking Status: Never Smoker Frequency of Alcohol Use: None Hx Recreational Drug Use: No Drugs: None Hx Prescription Drug Abuse: No - Advance Directive Resuscitation Status: Full Code Family History Family History: Hypertension Parental Family History Reviewed: No Children Family History Reviewed: No Sibling(s) Family History Reviewed.: No Medication/Allergy Home Medications: Allopurinol [Zyloprim 300 mg Tablet] 300 mg PO DAILY 07/22/18 Aspirin [Adult Aspirin] 81 mg PO DAILY 07/22/18 Carvedilol [Coreg 25 mg Tablet] 1 tab PO Q12 07/22/18 Meloxicam [Mobic] 7.5 mg PO DAILY 07/22/18 Sacubitril/Valsartan [Entresto 97 mg/103 mg Tablet] 1 tab PO BID 07/22/18 Allergies/Adverse Reactions: prednisone Allergy (Mild, Verified 07/22/18 23:59) Hives cephalexin [From Keflex] Allergy (Verified 07/31/17 14:13) gatifloxacin [From Tequin] Allergy (Verified 07/31/17 14:13) Penicillins Allergy (Verified 07/31/17 14:13) red dye Allergy (Verified 07/31/17 14:13) Review of Systems All systems: as per H Physical Exam Vital Signs: Temp Pulse Resp BP Pulse Ox 36.9 C 61 18 112/53 L 92 07/23/18 04:42 07/23/18 04:42 07/23/18 04:42 07/23/18 04:42 07/23/18 04:42 Intake & Output 07/22/18 07/23/18 07/24/18 06:59 06:59 06:59 Weight 97 kg Physical Exam: The patient is an elderly white male sitting up in a hospital bed in minor distress. He is alert, oriented, appropriate, and conversant. General appearance: PRESENT: no acute distress, mild distress Head exam: PRESENT: normocephalic Respiratory exam: PRESENT: unlabored Cardiovascular exam: PRESENT: RRR Pulses: PRESENT: +1 pedal pulses bilateral Vascular exam: PRESENT: normal capillary refill GI/Abdominal exam: PRESENT: soft Rectal exam: PRESENT: deferred Extremities exam: PRESENT: other - Passive range of motion of the left lower extremities not attempted. Distal neurovascular examination is intact. Neurological exam: PRESENT: alert, awake, oriented to person, oriented to place, oriented to time, oriented to situation. ABSENT: motor sensory deficit Psychiatric exam: PRESENT: appropriate affect, normal mood. ABSENT: homicidal i deation, suicidal ideation Skin exam: PRESENT: dry, intact, warm. ABSENT: cyanosis, rash Results Laboratory Results: 07/23/18 04:30 07/23/18 04:30 07/22/18 07/22/18 07/22/18 19:38 19:40 19:40 WBC 14.3 H RBC 4.46 Hgb 13.8 Hct 41.0 MCV 92 MCH 30.9 MCHC 33.6 RDW 15.0 H Plt Count 99 L Seg Neutrophils % 85.2 H Lymphocytes % 5.7 L Monocytes % 7.6 Eosinophils % 1.0 Basophils % 0.5 Absolute Neutrophils 12.2 H Absolute Lymphocytes 0.8 Absolute Monocytes 1.1 Absolute Eosinophils 0.1 Absolute Basophils 0.1 Sodium 143.6 Potassium 5.4 H Chloride 110 H Carbon Dioxide 26 Anion Gap 8 BUN 43 H Creatinine 1.85 H Est GFR ( Amer) 42 L Est GFR (Non-Af Amer) 35 L Glucose 164 H Calcium 9.2 Total Bilirubin 0.9 AST 24 ALT 20 L Alkaline Phosphatase 57 Total Protein 6.0 L Albumin 4.1 Urine Color YELLOW Urine Appearance SLIGHTLY-CLOUDY Urine pH 5.0 Ur Specific [place] 1.016 Urine Protein NEGATIVE Urine Glucose (UA) NEGATIVE Urine Ketones NEGATIVE Urine Blood SMALL H Urine Nitrite NEGATIVE Ur Leukocyte Esterase NEGATIVE Urine WBC (Auto) 1 Urine RBC (Auto) 2 Blood Type Antibody Screen 07/22/18 07/23/18 07/23/18 19:40 04:30 04:30 WBC 8.3 RBC 3.54 L Hgb 11.1 L D Hct 32.3 L MCV 91 MCH 31.5 MCHC 34.6 RDW 15.1 H Plt Count 62 L Seg Neutrophils % 76.7 Lymphocytes % 10.5 L Monocytes % 9.0 Eosinophils % 3.5 Basophils % 0.3 Absolute Neutrophils 6.4 Absolute Lymphocytes 0.9 Absolute Monocytes 0.7 Absolute Eosinophils 0.3 Absolute Basophils 0.0 Sodium 143.5 Potassium 4.4 D Chloride 114 H Carbon Dioxide 24 Anion Gap 6 BUN 43 H Creatinine 1.81 H Est GFR ( Amer) 43 L Est GFR (Non-Af Amer) 36 L Glucose 132 H Calcium 8.3 L Total Bilirubin AST ALT Alkaline Phosphatase Total Protein Albumin Urine Color Urine Appearance Urine pH Ur Specific [place] Urine Protein Urine Glucose (UA) Urine Ketones Urine Blood Urine Nitrite Ur Leukocyte Esterase Urine WBC (Auto) Urine RBC (Auto) Blood Type O NEGATIVE Antibody Screen NEGATIVE 07/22/18 07/22/18 19:40 19:40 Creatine Kinase 34 L CK-MB (CK-2) 0.43 Troponin I 0.024 Impressions: Hip X-Ray 07/22/18 00:00 IMPRESSION: MILDLY DISPLACED FRACTURE OF THE LEFT ACETABULUM. Chest X-Ray 07/22/18 18:47 IMPRESSION: Old sternotomy and CABG with pacemaker. No acute infiltrates Pelvis CT 07/22/18 19:17 IMPRESSION: Comminuted, mildly displaced fracture deformity of the left ilium/bony acetabulum with mildly displaced/avulsed fracture fragments. Associated hematoma formation of the left iliopsoas musculature. There is also inflammation with hematoma extending into the pelvis and surrounding the urinary bladder. Subjective urinary bladder wall thickening. Correlate with urinalysis. The possibility of urinary bladder injury is not entirely excluded. TECHNICAL DOCUMENTATION: Quality ID # [id number]: Final reports with documentation of one or more dose reduction techniques (e.g., Automated exposure control, adjustment of the mA and/or kV according to patient size, use of iterative reconstruction technique) copyright 2011 [employer]- All Rights Reserved Status: Imported from PACS Assessment & Plan - Diagnosis (1) Closed left acetabular fracture Qualifiers: Encounter type: initial encounter Sublocation of acetabulum: unspecified portion of acetabulum Fracture alignment: displaced Qualified Code(s): S32.402A - Unspecified fracture of left acetabulum, initial encounter for closed fracture Is this a current diagnosis for this admission?: Yes Plan: 87-year-old white male with a comminuted but minimally displaced left acetabular fracture. I think with the patient's best interest to treat this nonoperatively but this will entail a strict nonweightbearing on the lower extremity for as long as 6-8 weeks. In the meantime an overhead trapeze to the bed and physical therapy for nonweightbearing transfers to the chair may be appropriate. Analgesia as needed. - Time Time Spent: 50 to 70 Minutes Anticipated discharge: SNF Within: when bed available
[2018-07-23] MEDS: DOCUSATE SODIUM 100 MG CAPSULE PO SCH ×2 (11:34→17:49)
[2018-07-23] MEDS: CARVEDILOL 12.5 MG TABLET PO SCH ×2 (11:38→21:53)
[2018-07-23] MEDS: ASPIRIN 81 MG TABLET, ENT COATED PO SCH (11:38)
[2018-07-23] MEDS: SACUBITRIL/VALSARTAN 97 MG/103 MG TABLET PO SCH ×2 (11:39→21:54)
[2018-07-23] MEDS: MORPHINE SULFATE 10 MG/ML INJ IV PRN ×2 (14:58→19:47)
[2018-07-23] MEDS ORDERED: DEXTROSE 40% GEL 15 GM TUBE PO PRN ×2 (16:20)
[2018-07-23] MEDS ORDERED: DEXTROSE 50%-WATER 25 GM/50 ML DISP.SYRIN IV PRN ×2 (16:20)
[2018-07-23] MEDS ORDERED: GLUCAGON,HUMAN RECOMB 1 MG INJ IM PRN (16:20)
[2018-07-23] MEDS ORDERED: OXYCODONE-ACETAMINOPHEN 5-325 MG TABLET PO PRN (16:21)
--- NOTE | 2018-07-23 17:37 | PDOC PROGRESS REPORT ---
Subjective Progress Note for:: 07/23/18 Subjective:: SOHAIL GALVAN is a 87 year old male with a past medical history of coronary artery disease, congestive heart failure, atrial fibrillation status post permanent pacemaker AICD placement, diabetes and stage IV chronic kidney disease. He presents after tripping and falling to the ground striking his left hip resulting closed L acetabular fracture. Patient has been evaluated by Dr. Dhara Israel is deemed this case nonoperative. Per nursing staff, the patient was able to sit on the side of the bed with physical therapy. Upon assessment, the patient is resting comfortably in bed. He complains of mild left hip pain when attempting to move in the bed, but is ot herwise comfortable. Reason For Visit: LEFT HIP FX Physical Exam Vital Signs: Temp Pulse Resp BP Pulse Ox 98.9 F 63 16 122/69 97 07/23/18 16:40 07/23/18 16:40 07/23/18 16:40 07/23/18 16:40 07/23/18 16:40 Intake & Output 07/22/18 07/23/18 07/24/18 06:59 06:59 06:59 Intake Total 358 Output Total 180 Balance 178 Weight 97 kg General appearance: PRESENT: well-developed, well-nourished Head exam: PRESENT: atraumatic Eye exam: PRESENT: conjunctiva pink, PERRLA Mouth exam: PRESENT: moist, tongue midline Neck exam: PRESENT: full ROM Respiratory exam: PRESENT: clear to auscultation galo, symmetrical, unlabored Pulses: PRESENT: normal radial pulses, normal dorsalis pedis pul GI/Abdominal exam: PRESENT: soft. ABSENT: tenderness Rectal exam: PRESENT: deferred Extremities exam: ABSENT: full ROM Musculoskeletal exam: PRESENT: other - PARTIAL ROM TO LLE. ABSENT: ambulatory, full ROM Neurological exam: PRESENT: alert, awake, oriented to person, oriented to place, oriented to time, oriented to situation Psychiatric exam: PRESENT: appropriate affect Skin exam: PRESENT: dry, intact, warm Results Laboratory Results: 07/23/18 04:30 07/23/18 04:30 07/22/18 07/22/18 07/22/18 19:38 19:40 19:40 WBC 14.3 H RBC 4.46 Hgb 13.8 Hct 41.0 MCV 92 MCH 30.9 MCHC 33.6 RDW 15.0 H Plt Count 99 L Seg Neutrophils % 85.2 H Lymphocytes % 5.7 L Monocytes % 7.6 Eosinophils % 1.0 Basophils % 0.5 Absolute Neutrophils 12.2 H Absolute Lymphocytes 0.8 Absolute Monocytes 1.1 Absolute Eosinophils 0.1 Absolute Basophils 0.1 Sodium 143.6 Potassium 5.4 H Chloride 110 H Carbon Dioxide 26 Anion Gap 8 BUN 43 H Creatinine 1.85 H Est GFR ( Amer) 42 L Est GFR (Non-Af Amer) 35 L Glucose 164 H Calcium 9.2 Total Bilirubin 0.9 AST 24 ALT 20 L Alkaline Phosphatase 57 Total Protein 6.0 L Albumin 4.1 Urine Color YELLOW Urine Appearance SLIGHTLY-CLOUDY Urine pH 5.0 Ur Specific [place] 1.016 Urine Protein NEGATIVE Urine Glucose (UA) NEGATIVE Urine Ketones NEGATIVE Urine Blood SMALL H Urine Nitrite NEGATIVE Ur Leukocyte Esterase NEGATIVE Urine WBC (Auto) 1 Urine RBC (Auto) 2 Blood Type Antibody Screen 07/22/18 07/23/18 07/23/18 19:40 04:30 04:30 WBC 8.3 RBC 3.54 L Hgb 11.1 L D Hct 32.3 L MCV 91 MCH 31.5 MCHC 34.6 RDW 15.1 H Plt Count 62 L Seg Neutrophils % 76.7 Lymphocytes % 10.5 L Monocytes % 9.0 Eosinophils % 3.5 Basophils % 0.3 Absolute Neutrophils 6.4 Absolute Lymphocytes 0.9 Absolute Monocytes 0.7 Absolute Eosinophils 0.3 Absolute Basophils 0.0 Sodium 143.5 Potassium 4.4 D Chloride 114 H Carbon Dioxide 24 Anion Gap 6 BUN 43 H Creatinine 1.81 H Est GFR ( Amer) 43 L Est GFR (Non-Af Amer) 36 L Glucose 132 H Calcium 8.3 L Total Bilirubin AST ALT Alkaline Phosphatase Total Protein Albumin Urine Color Urine Appearance Urine pH Ur Specific [place] Urine Protein Urine Glucose (UA) Urine Ketones Urine Blood Urine Nitrite Ur Leukocyte Esterase Urine WBC (Auto) Urine RBC (Auto) Blood Type O NEGATIVE Antibody Screen NEGATIVE 07/22/18 07/22/18 19:40 19:40 Creatine Kinase 34 L CK-MB (CK-2) 0.43 Troponin I 0.024 Impressions: Hip X-Ray 07/22/18 00:00 IMPRESSION: MILDLY DISPLACED FRACTURE OF THE LEFT ACETABULUM. Chest X-Ray 07/22/18 18:47 IMPRESSION: Old sternotomy and CABG with pacemaker. No acute infiltrates Pelvis CT 07/22/18 19:17 IMPRESSION: Comminuted, mildly displaced fracture deformity of the left ilium/bony acetabulum with mildly displaced/avulsed fracture fragments. Associated hematoma formation of the left iliopsoas musculature. There is also inflammation with hematoma extending into the pelvis and surrounding the urinary bladder. Subjective urinary bladder wall thickening. Correlate with urinalysis. The possibility of urinary bladder injury is not entirely excluded. TECHNICAL DOCUMENTATION: Quality ID # [id number]: Final reports with documentation of one or more dose reduction techniques (e.g., Automated exposure control, adjustment of the mA and/or kV according to patient size, use of iterative reconstruction technique) copyright 2011 [employer]- All Rights Reserved Status: Imported from PACS Assessment & Plan - Diagnosis (1) Closed left acetabular fracture Qualifiers: Encounter type: initial encounter Sublocation of acetabulum: unspecified portion of acetabulum Fracture alignment: displaced Qualified Code(s): S32.402A - Unspecified fracture of left acetabulum, initial encounter for closed fracture Is this a current diagnosis for this admission?: Yes Plan: Management per Ortho No plan for surgery PT OT Morphine IV as needed Patient will likely require SNF placement Collaborating with case management (2) Chronic kidney disease Is this a current diagnosis for this admission?: Yes Plan: Unclear about baseline Creatinine Currently 1.8 Previous hospitalizations range from 1.44->2.0 Continue to monitor with daily chemistries (3) Congestive heart failure Is this a current diagnosis for this admission?: Yes Plan: Continue home dose Entresto and Coreg (4) Thrombocytopenia Is this a current diagnosis for this admission?: Yes Plan: Platelet count dropped to 62 this morning Hold heparin SQ, switch to arixtra - Time Time Spent with patient: 15-24 minutes Medications reviewed and adjusted accordingly: Yes Anticipated discharge: SNF - Inpatient Certification Based on my medical assessment, after consideration of the patient's comorbidities, presenting symptoms, or acuity I expect that the services needed warrant INPATIENT care.: Yes I certify that my determination is in accordance with my understanding of Medicare's requirements for reasonable and necessary INPATIENT services [42 CFR 412.3e].: Yes Medical Necessity: Risk of Complication if Not Cared For in Hospital - Plan Summary Plan Summary: Continue PT OT. Will talk with case management about safe discharge plan for the patient.
--- NOTE | 2018-07-23 21:46 | EKG REPORT ---
SEVERITY:- ABNORMAL ECG - ATRIAL-PACED COMPLEXES RIGHT BUNDLE BRANCH BLOCK : Confirmed by: Alesha Jacobo 23-Jul-2018 21:46:06
[2018-07-23] MEDS: INSULIN LISPRO 100 UNIT/ML 3 ML VIAL SUBCUT SCH (21:52)
[2018-07-24] MEDS: HEPARIN SOD (PORCINE) 5,000 UNIT/ML 1 ML SYRINGE SUBCUT SCH ×2 (05:59→14:52)
[2018-07-24] MEDS: INSULIN LISPRO 100 UNIT/ML 3 ML VIAL SUBCUT SCH ×4 (07:53→22:39)
[2018-07-24] MEDS: DOCUSATE SODIUM 100 MG CAPSULE PO SCH ×2 (08:59→17:43)
[2018-07-24] MEDS: SACUBITRIL/VALSARTAN 97 MG/103 MG TABLET PO SCH ×2 (08:59→22:42)
[2018-07-24] MEDS: ASPIRIN 81 MG TABLET, ENT COATED PO SCH (08:59)
[2018-07-24] MEDS: CARVEDILOL 12.5 MG TABLET PO SCH ×2 (08:59→22:42)
[2018-07-24] MEDS: FONDAPARINUX SODIUM INJ 2.5 MG/0.5 ML DISP.SYRIN SUBCUT SCH (18:30)
--- NOTE | 2018-07-24 20:55 | PDOC PROGRESS REPORT ---
Subjective Progress Note for:: 07/24/18 Subjective:: SOHAIL GALVAN is a 87 year old male with a past medical history of coronary artery disease, congestive heart failure, atrial fibrillation status post permanent pacemaker AICD placement, diabetes and stage IV chronic kidney disease. He presents after tripping and falling to the ground striking his left hip resulting closed L acetabular fracture. Patient has been evaluated by Dr. Dhara Israel is deemed this case nonoperative. Upon assessment, the patient is resting comfortably in bed. He complains of mild left hip pain when attempting to move in the bed, but is otherwise comfortable. He expresses concern about his and her ability to care for herself if he were transferred to a SNF. Discussed with Case Management, still working to find a solution about spousal care. Patient is not a candidate for home PT. He is simply too weak and there is a high risk that he could fall again if sent home in his condition. Reason For Visit: LEFT HIP FX Physical Exam Vital Signs: Temp Pulse Resp BP Pulse Ox 97.9 F 61 24 H 135/62 H 94 07/24/18 15:31 07/24/18 19:00 07/24/18 15:31 07/24/18 15:31 07/24/18 15:31 Intake & Output 07/23/18 07/24/18 07/25/18 06:59 06:59 06:59 Intake Total 712 620 Output Total 180 575 Balance 532 45 Weight 97 kg 102.5 kg General appearance: PRESENT: well-developed, well-nourished Eye exam: PRESENT: conjunctiva pink, PERRLA Mouth exam: PRESENT: moist, tongue midline Neck exam: PRESENT: full ROM Respiratory exam: PRESENT: clear to auscultation galo, symmetrical, unlabored Cardiovascular exam: PRESENT: RRR Pulses: PRESENT: normal radial pulses, normal dorsalis pedis pul GI/Abdominal exam: PRESENT: soft. ABSENT: distended Rectal exam: PRESENT: deferred Extremities exam: PRESENT: pedal edema - very mild. ABSENT: full ROM Musculoskeletal exam: ABSENT: ambulatory, full ROM Neurological exam: PRESENT: alert, awake, oriented to person, oriented to place, oriented to time, oriented to situation Psychiatric exam: PRESENT: appropriate affect Skin exam: PRESENT: dry, intact, normal color Results Laboratory Results: 07/23/18 04:30 07/23/18 04:30 07/22/18 07/22/18 19:40 19:40 Creatine Kinase 34 L CK-MB (CK-2) 0.43 Troponin I 0.024 Impressions: Hip X-Ray 07/22/18 00:00 IMPRESSION: MILDLY DISPLACED FRACTURE OF THE LEFT ACETABULUM. Chest X-Ray 07/22/18 18:47 IMPRESSION: Old sternotomy and CABG with pacemaker. No acute infiltrates Pelvis CT 07/22/18 19:17 IMPRESSION: Comminuted, mildly displaced fracture deformity of the left ilium/bony acetabulum with mildly displaced/avulsed fracture fragments. Associated hematoma formation of the left iliopsoas musculature. There is also inflammation with hematoma extending into the pelvis and surrounding the urinary bladder. Subjective urinary bladder wall thickening. Correlate with urinalysis. The possibility of urinary bladder injury is not entirely excluded. TECHNICAL DOCUMENTATION: Quality ID # [id number]: Final reports with documentation of one or more dose reduction techniques (e.g., Automated exposure control, adjustment of the mA and/or kV according to patient size, use of iterative reconstruction technique) copyright 2011 [employer]- All Rights Reserved Status: Imported from PACS Assessment & Plan - Diagnosis (1) Closed left acetabular fracture Qualifiers: Encounter type: initial encounter Sublocation of acetabulum: unspecified portion of acetabulum Fracture alignment: displaced Qualified Code(s): S32.402A - Unspecified fracture of left acetabulum, initial encounter for closed fracture Is this a current diagnosis for this admission?: Yes Plan: Management per Ortho No plan for surgery PT OT Morphine IV as needed Plan for SNF placement Collaborating with case management (2) Chronic kidney disease Is this a current diagnosis for this admission?: Yes Plan: Unclear about baseline Creatinine Currently 1.8 Previous hospitalizations range from 1.44->2.0 Continue to monitor with daily chemistries (3) Congestive heart failure Is this a current diagnosis for this admission?: Yes Plan: Continue home dose Entresto and Coreg (4) Thrombocytopenia Is this a current diagnosis for this admission?: Yes Plan: Platelet count dropped to 62 this morning Continue arixtra - Time Time Spent with patient: 15-24 minutes Medications reviewed and adjusted accordingly: Yes Anticipated discharge: SNF Within: when bed available - Inpatient Certification Based on my medical assessment, after consideration of the patient's comorbidities, presenting symptoms, or acuity I expect that the services needed warrant INPATIENT care.: Yes I certify that my determination is in accordance with my understanding of Medicare's requirements for reasonable and necessary INPATIENT services [42 CFR 412.3e].: Yes Medical Necessity: Risk of Complication if Not Cared For in Hospital - Plan Summary Plan Summary: DISCUSS SNF PLACEMENT WITH CASE MGMT
[2018-07-25 05:05] LABS: HEMATOCRIT 29.9 % (37.9-51.0); HEMOGLOBIN 10.3 g/dL (13.5-17.0); MEAN CORPUSCULAR HEMOGLOBIN 31.3 pg (27.0-33.4); MEAN CORPUSCULAR HGB CONC 34.6 g/dL (32.0-36.0); MEAN CORPUSCULAR VOLUME 91 fl (80-97); RED CELL DISTRIBUTION WIDTH 15.1 % (11.5-14.0)
[2018-07-25 05:13] LABS: ANION GAP 7 (5-19); BLOOD UREA NITROGEN 49 mg/dL (7-20); CALCIUM 8.4 mg/dL (8.4-10.2); CARBON DIOXIDE 23 mmol/L (22-30); CHLORIDE 113 mmol/L (98-107); GLUCOSE 128 mg/dL (75-110); PHOSPHORUS 3.4 mg/dL (2.5-4.5); POTASSIUM 4.1 mmol/L (3.6-5.0); SODIUM 142.7 mmol/L (137-145)
[2018-07-25 05:36] LABS: PLATELET COUNT 58 10^3/uL (150-450)
[2018-07-25] MEDS: INSULIN LISPRO 100 UNIT/ML 3 ML VIAL SUBCUT SCH ×2 (08:24→11:20)
[2018-07-25] MEDS: FONDAPARINUX SODIUM INJ 2.5 MG/0.5 ML DISP.SYRIN SUBCUT SCH (08:41)
[2018-07-25] MEDS: SACUBITRIL/VALSARTAN 97 MG/103 MG TABLET PO SCH (08:41)
[2018-07-25] MEDS: ASPIRIN 81 MG TABLET, ENT COATED PO SCH (08:41)
--- NOTE | 2018-07-25 08:57 | PDOC TRANSFER SUMMARY ---
General Admission Date/PCP: 07/22/18 20:07 MCKAY CHOUDHARY DO Admission Date: 07/22/18 Transfer Date: 07/25/18 Resuscitation Status: Full Code - Transfer Diagnosis (1) Closed left acetabular fracture Is this a current diagnosis for this admission?: Yes (2) Chronic kidney disease Is this a current diagnosis for this admission?: Yes (3) Congestive heart failure Is this a current diagnosis for this admission?: Yes (4) Thrombocytopenia Is this a current diagnosis for this admission?: Yes - Transfer Medications Home Medications: Allopurinol [Zyloprim 300 mg Tablet] 300 mg PO DAILY 07/22/18 Aspirin [Adult Aspirin] 81 mg PO DAILY 07/22/18 Carvedilol [Coreg 25 mg Tablet] 1 tab PO Q12 07/22/18 Meloxicam [Mobic] 7.5 mg PO DAILY 07/22/18 Sacubitril/Valsartan [Entresto 97 mg/103 mg Tablet] 1 tab PO BID 07/22/18 Transfer Medications: Current Medications Acetaminophen (Tylenol 325 Mg Tablet) 650 mg PO Q4HP PRN PRN Reason: FOR PAIN OR TEMP Stop: 08/21/18 20:08 Al Hydrox/Mg Hydrox/Simethicone (Maalox Plus Susp 30 Udcup) 30 ml PO Q6HP PRN PRN Reason: HEARTBURN Stop: 08/21/18 20:08 Albuterol/Ipratropium (Duoneb 3 Ml Ampul) 3 ml NEB [id number] PRN PRN Reason: SHORTNESS OF BREATH Stop: 08/21/18 20:08 Aspirin (Ecotrin 81 Mg Ec Tablet) 81 mg PO DAILY YANELY Stop: 08/22/18 09:59 Last Admin: 07/25/18 08:41 Dose: 81 mg Documented by: Carvedilol (Coreg 12.5 Mg Tablet) 25 mg PO Q12 YANELY Stop: 08/21/18 21:59 Last Admin: 07/24/18 22:42 Dose: 25 mg Documented by: Dextrose (Dextrose Inj 50% Syringe (25 Gm/50 Ml)) 25 gm IV PRN PRN; Protocol PRN Reason: PER PROTOCOL Stop: 08/22/18 16:19 Dextrose (Dextrose Inj 50% Syringe (25 Gm/50 Ml)) 12.5 gm IV PRN PRN; Protocol PRN Reason: FOR BG 50-69 IN ALERT PATIENT Stop: 08/22/18 16:19 Docusate Sodium (Colace 100 Mg Capsule) 100 mg PO BID [facility] Stop: 08/22/18 09:59 Last Admin: 07/24/18 17:43 Dose: Not Given Documented by: Fondaparinux (Arixtra Inj 2.5 Mg/0.5 Ml Disp.Syrin) 2.5 mg SUBCUT DAILY [facility] Stop: 08/23/18 15:59 Last Admin: 07/25/18 08:41 Dose: 2.5 mg Documented by: Glucagon (Glucagen Inj 1 Mg Vial) 1 mg IM PRN PRN; Protocol PRN Reason: Evaluate for BG < 70 Stop: 08/22/18 16:19 Glucose (Glutose 40% Gel 15 Gm Tube) 15 gm PO PRN PRN; Protocol PRN Reason: FOR BG 50-69 IN ALERT PATIENT Stop: 08/22/18 16:19 Glucose (Glutose 40% Gel 15 Gm Tube) 30 gm PO PRN PRN; Protocol PRN Reason: FOR BG < 50 IN ALERT PATIENT Stop: 08/22/18 16:19 Sodium Chloride (Nacl 0.9% 1000 Ml Iv Soln) 1,000 mls @ 250 mls/hr IV X 2 BAGS [facility] Stop: 08/21/18 20:44 Insulin Human Lispro (Humalog Insulin 100 Unit/1 Ml 3 Ml Vial) 0 - 12 unit SUBCUT ACHS [facility]; Protocol Stop: 08/22/18 21:59 Last Admin: 07/25/18 08:24 Dose: Not Given Documented by: Magnesium Hydroxide (Milk Of Magnesia 30 Ml Udcup) 30 ml PO HSP PRN PRN Reason: FOR CONSTIPATION Stop: 08/21/18 20:08 Morphine Sulfate (Morphine 10 Mg/Ml Inj) 2 mg IV Q3HP PRN PRN Reason: FOR PAIN SCALE 3-5 Stop: 07/29/18 20:11 Last Admin: 07/23/18 19:47 Dose: 2 mg Documented by: Ondansetron HCl (Zofran Inj/Pf 4 Mg/2 Ml Sdv) 4 mg IV Q8HP PRN PRN Reason: FOR NAUSEA/VOMITING Stop: 08/21/18 20:08 Oxycodone/Acetaminophen (Percocet 5-325 Mg Tablet) 2 tab PO Q6HP PRN PRN Reason: FOR PAIN Stop: 07/30/18 16:20 Sacubitril/Valsartan (Entresto 97 Mg/103 Mg Tablet) 1 tab PO Q12 YANELY Stop: 08/22/18 09:59 Last Admin: 07/25/18 08:41 Dose: 1 tab Documented by: - Allergies Allergies/Adverse Reactions: prednisone Allergy (Mild, Verified 07/22/18 23:59) Hives cephalexin [From Keflex] Allergy (Verified 07/31/17 14:13) gatifloxacin [From Tequin] Allergy (Verified 07/31/17 14:13) Penicillins Allergy (Verified 07/31/17 14:13) red dye Allergy (Verified 07/31/17 14:13) - Diet/Activity Discharge Diet: As Tolerated Hospital Course Hospital Course: SOHAIL GALVAN is a 87 year old male with a past medical history of coronary artery disease, congestive heart failure, atrial fibrillation status post permanent pacemaker AICD placement, diabetes and stage IV chronic kidney disease. He presents after tripping and falling to the ground striking his left hip resulting closed L acetabular fracture. Patient has been evaluated by Dr. Alexia Israely is deemed this case nonoperative. Pain is well controlled with Percocet. Thus far, the patient has been working with PT everyday. He is non-weight bearing to the affected limb. The patient will require SNF following hospitalization. He is not a candidate for home PT because he is too high risk for falling. The patient is agreeable to this treatment plan. Physical Exam Vital Signs: Temp Pulse Resp BP Pulse Ox 97.9 F 59 L 18 137/64 H 96 07/25/18 08:22 07/25/18 08:22 07/25/18 08:22 07/25/18 08:22 07/25/18 08:22 Intake & Output 07/24/18 07/25/18 07/26/18 06:59 06:59 06:59 Intake Total 712 1140 Output Total 180 575 Balance 532 565 Weight 102.5 kg 103.4 kg Results Laboratory Results: 07/25/18 04:37 07/25/18 04:37 07/25/18 07/25/18 04:37 04:37 WBC 7.0 RBC 3.30 L Hgb 10.3 L Hct 29.9 L MCV 91 MCH 31.3 MCHC 34.6 RDW 15.1 H Plt Count 58 L Sodium 142.7 Potassium 4.1 Chloride 113 H Carbon Dioxide 23 Anion Gap 7 BUN 49 H Creatinine 1.83 H Est GFR ( Amer) 43 L Est GFR (Non-Af Amer) 35 L Glucose 128 H Calcium 8.4 Phosphorus 3.4 Magnesium 2.3 07/22/18 07/22/18 19:40 19:40 Creatine Kinase 34 L CK-MB (CK-2) 0.43 Troponin I 0.024 Impressions: Hip X-Ray 07/22/18 00:00 IMPRESSION: MILDLY DISPLACED FRACTURE OF THE LEFT ACETABULUM. Chest X-Ray 07/22/18 18:47 IMPRESSION: Old sternotomy and CABG with pacemaker. No acute infiltrates Pelvis CT 07/22/18 19:17 IMPRESSION: Comminuted, mildly displaced fracture deformity of the left ilium/bony acetabulum with mildly displaced/avulsed fracture fragments. Associated hematoma formation of the left iliopsoas musculature. There is also inflammation with hematoma extending into the pelvis and surrounding the urinary bladder. Subjective urinary bladder wall thickening. Correlate with urinalysis. The possibility of urinary bladder injury is not entirely excluded. TECHNICAL DOCUMENTATION: Quality ID # 436: Final reports with documentation of one or more dose reduction techniques (e.g., Automated exposure control, adjustment of the mA and/or kV according to patient size, use of iterative reconstruction technique) copyright 2011 [employer]- All Rights Reserved Plan Discharge Plan: DISCHARGE TO SNF. CONTINUE PT/OT Time Spent: Greater than 30 Minutes
[2018-07-25] MEDS: DOCUSATE SODIUM 100 MG CAPSULE PO SCH (08:59)
[2018-07-25] MEDS: CARVEDILOL 12.5 MG TABLET PO SCH (12:08)
[2018-07-25 14:17] VITALS: BP 136/60
== END 2018-07-25 14:53 | DRG 536 ==
LOC: ER 17:47 → EH 20:07 → 5 23:11
PROVIDERS: ADMIT Internal Medicine; ATTEND Internal Medicine
DX: S32.402A Unspecified fracture of left acetabulum, initial encounter for closed fracture (principal); I13.0 Hypertensive heart and chronic kidney disease with heart failure and stage 1 through stage 4 chronic kidney disease, or unspecified chronic kidney disease; N18.4 Chronic kidney disease, stage 4 (severe); I48.91 Unspecified atrial fibrillation; D69.6 Thrombocytopenia, unspecified; E87.5 Hyperkalemia; E11.22 Type 2 diabetes mellitus with diabetic chronic kidney disease; I50.9 Heart failure, unspecified; I25.10 Atherosclerotic heart disease of native coronary artery without angina pectoris; I11.0 Hypertensive heart disease with heart failure; W19.XXXA Unspecified fall, initial encounter; Y93.89 Activity, other specified; Y92.89 Other specified places as the place of occurrence of the external cause; Z95.0 Presence of cardiac pacemaker; Z79.82 Long term (current) use of aspirin; Z79.899 Other long term (current) drug therapy
CPT/HCPCS: 36415; 71045; 72192; 80048; 80053; 81001; 82550; 82553; 82962; 83735; 84100; 84484; 85025; 85027; 85610; 85730; 86850; 86900; 86901; 93005; 93010; 94799; 99285; J1652; J1815; J2270; J3490

== ENCOUNTER 2018-09-18 00:52 | Emergency (ER) | payer MEDICARE ==
--- NOTE | 2018-09-18 01:43 | ER Document Report ---
ED Fall - General Chief Complaint: Fall Stated Complaint: FALL Time Seen by Provider: 09/18/18 01:42 Primary Care Provider: WENDY DOUGLASS MD [Primary Care Provider] - Follow up as needed Mode of Arrival: Stretcher Information source: Emergency Med Personnel Notes: HISTORY OF PRESENT ILLNESS: Patient is a 88-year-old male with a past medical history of dementia and atrial fibrillation not currently anticoagulated who presents with mechanical fall. Patient reports that he was attempting to get out of bed when he lost his balance and fell backwards, striking the back of his head against the headboard. Location: Posterior occiput Onset: Sudden Provocation: "I think I lost my balance" Quality: Aching Radiation: None Severity: Mild Timing: Persistent Associated symptoms: No fevers or chills, no confusion or disorientation, no vision changes, no syncope or loss of consciousness REVIEW OF SYSTEMS: CONSTITUTIONAL : Denies fever or chills, no sweats. Denies recent illness. EENT: Denies eye, ear, throat, or mouth pain or symptoms. Denies nasal or sinus congestion. CARDIOVASCULAR: Denies chest pain. RESPIRATORY: Denies cough, cold, or chest congestion. Denies shortness of breath, difficulty breathing, or wheezing. GASTROINTESTINAL: Denies abdominal pain. Denies nausea, vomiting, or diarrhea. Denies constipation. GENITOURINARY: Denies difficulty urinating, painful urination, burning, frequency, or blood in urine. MUSCULOSKELETAL: Positive for head and neck pain. SKIN: Denies rash or skin lesions. HEMATOLOGIC : Denies easy bruising or bleeding. LYMPHATIC: Denies swollen, enlarged glands. NEUROLOGICAL: Denies altered mental status or loss of consciousness. Denies headache. Denies weakness or paralysis or loss of use of either side. Denies problems with gait or speech. Denies sensory or motor loss. PSYCHIATRIC: Denies anxiety or stress or depression. All other systems reviewed and negative. PHYSICAL EXAMINATION: GENERAL: Well-appearing, well-nourished and in no acute distress. HEAD: 3 cm area of swelling to the posterior occiput without obvious deformity or active bleeding. No scalp deformity, depression, or crepitance. EYES: Pupils are 3 mm and equal/round/reactive to light, extraocular movements intact, sclera anicteric, conjunctiva are normal. ENT: Nares patent bilaterally, oropharynx clear without exudates or palatal petechia. Moist mucous membranes. No tonsil hypertrophy. NECK: No central C-spine tenderness. No step-off or deformity. Normal range of motion, supple without lymphadenopathy. LUNGS: Breath sounds present, equal, and clear to auscultation bilaterally. No wheezes, rales, or rhonchi. HEART: Regular rate and rhythm without murmurs, rubs, or gallops. 2+ peripheral pulses. Normal capillary refill. ABDOMEN: Soft, nontender, nondistended. Normoactive bowel sounds. No guarding, no rebound. No masses appreciated. BACK: Normal contour, no midline tenderness. Rectal exam deferred. GENITAL: Deferred. EXTREMITIES: Normal range of motion, no pitting or edema. No cyanosis. NEUROLOGICAL: No focal neurological deficits. Moves all extremities spontaneously and on command. PSYCH: Normal mood, normal affect. No suicidal thoughts/ideations. No homocidal thoughts/ideations. No hallucinations. SKIN: Warm, dry, normal turgor, no rashes or lesions noted. ASSESSMENT AND PLAN: This patient is a 88-year-old male who presents with swelling to the back of the occiput after mechanical fall. 1. Will obtain CT scans of the head and neck then reassess. 2. Will discharge if scans are negative. TRAVEL OUTSIDE OF THE [place] IN LAST 30 DAYS: No - Related data Allergies/Adverse Reactions: prednisone Allergy (Mild, Verified 09/18/18 01:55) Hives cephalexin [From Keflex] Allergy (Verified 09/18/18 01:55) gatifloxacin [From Tequin] Allergy (Verified 09/18/18 01:55) Penicillins Allergy (Verified 09/18/18 01:55) red dye Allergy (Verified 09/18/18 01:55) Past Medical History - General Information source: Emergency Med Personnel - Social History Smoking Status: Unknown if Ever Smoked Chew tobacco use (# tins/day): No Frequency of alcohol use: None Drug Abuse: None Lives with: Correction Family History: Hypertension Patient has suicidal ideation: No Patient has homicidal ideation: No - Past Medical History Cardiac Medical History: Reports: Hx Atrial Fibrillation, Hx Congestive Heart Fa ilure, Hx Heart Attack, Hx Hypertension Denies: Hx Pulmonary Embolism Pulmonary Medical History: Reports: None EENT Medical History: Reports: None Neurological Medical History: Reports: None Endocrine Medical History: Reports: None Renal/ Medical History: Reports: None. Denies: Hx Peritoneal Dialysis Malignancy Medical History: Reports None GI Medical History: Reports: None Musculoskeletal Medical History: Reports None Skin Medical History: Reports None Psychiatric Medical History: Reports: None Denies: Hx Depression Traumatic Medical History: Reports: None Infectious Medical History: Reports: None Past Surgical History: Reports: Hx Cardiac Surgery - "open heart" x2, Hx Internal Defibrillator, Hx Pacemaker - Immunizations Immunizations up to date: Yes Hx Diphtheria, Pertussis, Tetanus Vaccination: Yes Physical Exam - Vital signs Vitals: Temp Pulse Resp BP Pulse Ox 97.6 F 66 21 H 171/78 H 98 09/18/18 01:06 09/18/18 01:06 09/18/18 01:06 09/18/18 01:06 09/18/18 01:06 Course - Re-evaluation Re-evalutation: 09/18/18 04:02 CT scans are negative for acute injury. Patient will be discharged home with return precautions and follow-up as needed. Patient voices both understanding and agreeing with the plan. - Vital Signs Vital signs: Temp Pulse Resp BP Pulse Ox 97.6 F 66 15 181/78 H 97 09/18/18 01:06 09/18/18 01:06 09/18/18 03:01 09/18/18 03:01 09/18/18 03:01 - Diagnostic Test Radiology reviewed: Image reviewed, Reports reviewed Discharge - Discharge Clinical Impression: Fall Qualifiers: Encounter type: initial encounter Qualified Code(s): W19.XXXA - Unspecified fall, initial encounter Scalp hematoma Qualifiers: Encounter type: initial encounter Qualified Code(s): S00.03XA - Contusion of scalp, initial encounter Condition: Good Disposition: HOME, SELF-CARE Instructions: Scalp Hematoma ([facility]) Additional Instructions: You have been evaluated in the Emergency Department for falling resulting in swelling to the back of her scalp. While here, you had CT scans of your head and neck that were normal and it is now safe to be discharged home. Please follow-up with your primary physician as instructed in 24-48 hours. Return to the Emergency Department if you experience confusion, disorientation, difficulty walking, vision changes, or any other concerning symptoms. Referrals: WENDY DOUGLASS MD [Primary Care Provider] - Follow up as needed Print Language: Setswana
--- NOTE | 2018-09-18 02:19 | RADIOLOGY REPORT (SQ) ---
EXAM DESCRIPTION: CT HEAD WITHOUT IV CONTRAST COMPLETED DATE/TME: 09/18/2018 01:48 CLINICAL HISTORY: 88 years, Male, Fall COMPARISON: None. TECHNIQUE: 118 Images stored on PACS. All CT scanners at this facility use dose modulation, iterative reconstruction, and/or weight based dosing when appropriate to reduce radiation dose to as low as reasonably achievable (ALARA). [facility]: Dose Right [facility]: CareDose [facility]: Dose Right [facility]: Teradose 4D [facility]: [employer] LIMITATIONS: None. FINDINGS: Globes are intact. Paranasal sinuses and mastoid air cells are unremarkable. No displaced or depressed skull fracture. No intra or extra-axial hemorrhage. CT is limited for evaluation of acute infarct. No CT evidence for large or territorial acute infarct. Diffuse atrophy. Moderate small vessel ischemic change. Age indeterminate lacunar infarct of the left basal ganglia. No mass or midline shift IMPRESSION: Atrophy. Small vessel ischemic change. Age-indeterminate lacunar infarct left basal ganglia TECHNICAL DOCUMENTATION: Quality ID # 436: Final reports with documentation of one or more dose reduction techniques (e.g., Automated exposure control, adjustment of the mA and/or kV according to patient size, use of iterative reconstruction technique) copyright 2010 [employer]- All Rights Reserved
--- NOTE | 2018-09-18 02:27 | RADIOLOGY REPORT (SQ) ---
EXAM DESCRIPTION: CT CERVICAL SPINE WITHOUT IV CONTRAST COMPLETED DATE/TME: 09/18/2018 01:48 CLINICAL HISTORY: 88 years, Male, Fall COMPARISON: None. TECHNIQUE: 328 Images stored on PACS. All CT scanners at this facility use dose modulation, iterative reconstruction, and/or weight based dosing when appropriate to reduce radiation dose to as low as reasonably achievable (ALARA). [facility]: Dose Right [facility]: CareDose [facility]: Dose Right [facility]: Teradose 4D [facility]: [employer] LIMITATIONS: None. FINDINGS: Evaluation of spinal canal contents limited due to CT technique. Vertebral body height is preserved. Equivocal anterolisthesis of C3 with respect to C4 and C4 with respect to C5 likely degenerative in nature. Degenerative changes throughout the cervical spine with disc space narrowing, endplate degenerative change, and facet arthropathy. The atlantoaxial space is preserved. The lateral masses are not displaced. Surrounding soft tissues are unremarkable IMPRESSION: No CT evidence for acute C-spine abnormality TECHNICAL DOCUMENTATION: Quality ID # 436: Final reports with documentation of one or more dose reduction techniques (e.g., Automated exposure control, adjustment of the mA and/or kV according to patient size, use of iterative reconstruction technique) copyright 2010 [employer]- All Rights Reserved
[2018-09-18 07:30] VITALS: BP 136/71
== END 2018-09-18 08:00 ==
LOC: ER 00:52
DX: S00.03XA Contusion of scalp, initial encounter (principal); R51 Headache; M54.2 Cervicalgia; W19.XXXA Unspecified fall, initial encounter; W22.03XA Walked into furniture, initial encounter; I10 Essential (primary) hypertension; Y93.89 Activity, other specified; Z88.8 Allergy status to other drugs, medicaments and biological substances; Z88.1 Allergy status to other antibiotic agents; Z88.0 Allergy status to penicillin; Z91.048 Other nonmedicinal substance allergy status
CPT/HCPCS: 70450; 72125; 99284

== ENCOUNTER 2018-12-18 22:23 | Inpatient (IN) | payer MEDICARE, OTHER ==
[2018-12-18] MEDS ORDERED: IPRATROPIUM/ALBUTEROL 0.5-2.5 MG/3 ML AMPUL NEB ONE (22:34)
--- NOTE | 2018-12-18 22:41 | ER Document Report ---
ED General - General Stated Complaint: UNRESPONSIVE Time Seen by Provider: 12/18/18 22:32 Notes: Patient is 88-year-old male who presents the retirement with reports of suddenly having difficulty breathing and having altered mental status. Paramedics arrived the patient had a faint pulse and was working hard to breathe. They placed him on CPAP and gave him a dose of atropine as they said his peripheral pulse palpated felt slow. Says since then the patient's blood pressure is still a come up and his oxygenation improved with the CPAP. Patient then also started to wake up more start to answer some questions. According to the paramedics patient is a full code. Patient is able to answer some questions. Denies any chest pain. He is unable to tell me exactly when the symptoms started. He does not think he has had a fever. He denies feeling nauseous. TRAVEL OUTSIDE OF THE [place] IN LAST 30 DAYS: No - Related Data Allergies/Adverse Reactions: prednisone Allergy (Mild, Verified 09/18/18 01:55) Hives cephalexin [From Keflex] Allergy (Verified 09/18/18 01:55) gatifloxacin [From Tequin] Allergy (Verified 09/18/18 01:55) Penicillins Allergy (Verified 09/18/18 01:55) red dye Allergy (Verified 09/18/18 01:55) Past Medical History - Social History Smoking Status: Unknown if Ever Smoked Frequency of alcohol use: None Drug Abuse: None Family History: Hypertension - Past Medical History Cardiac Medical History: Reports: Hx Atrial Fibrillation, Hx Congestive Heart Failure, Hx Heart Attack, Hx Hypertension Denies: Hx Pulmonary Embolism Renal/ Medical History: Denies: Hx Peritoneal Dialysis Psychiatric Medical History: Denies: Hx Depression Past Surgical History: Reports: Hx Cardiac Surgery - "open heart" x2, Hx Internal Defibrillator, Hx Pacemaker - Immunizations Immunizations up to date: Yes Hx Diphtheria, Pertussis, Tetanus Vaccination: Yes Review of Systems - Review of Systems Notes: My Normal Review Basic REVIEW OF SYSTEMS: CONSTITUTIONAL : Denies fever, chills, or sweats. Denies recent illness. EENT: Denies eye, ear, throat, or mouth pain or symptoms. Denies nasal or sinus congestion. CARDIOVASCULAR: Denies chest pain. RESPIRATORY: Difficulty breathing GASTROINTESTINAL: Denies abdominal pain. Denies nausea, vomiting, or diarrhea. GENITOURINARY: Denies difficulty urinating, painful urination, burning, frequency, or blood in urine. MUSCULOSKELETAL: Denies neck or back pain or joint pain or swelling. SKIN: Denies rash or skin lesions. NEUROLOGICAL: Decreased level of consciousness ALL OTHER SYSTEMS REVIEWED AND NEGATIVE. Physical Exam - Vital signs Vitals: Resp Pulse Ox 15 100 12/18/18 22:34 12/18/18 22:34 - Notes Notes: General Appearance: Well nourished, alert, cooperative, moderate acute distress, no obvious discomfort. Vitals: reviewed, See vital signs table. Head: no swelling or tenderness to the head Eyes: PERRL, EOMI, Conjuctiva clear Mouth: No decreasd moisture Neck: Supple, no neck tenderness, No thyromegaly Lungs: Diffuse wheezing, No rales, No rhonci, No accessory muscle use, fair air exchange bilaterally. Heart: Normal rate, Regular rythm, No murmur, no rub Abdomen: Normal BS, soft, No rigidity, No abdominal tenderness, No guarding, no rebound, no abdominal masses, no organomegaly Extremities: good pulses in all extremities, no swelling or tenderness in the extremities, no edema. Skin: warm, dry, appropriate color, no rash Neuro: speech clear, oriented x 3, normal affect, responds appropriately to questions. Course - Re-evaluation Re-evalutation: 12/18/18 22:40 Patient arrives now more awake and alert. He is able to answer some questions. He does tightness and wheezing throughout his lungs and therefore have ordered s ome DuoNeb treatments and a switch from the BiPAP. Currently his heart rate is improved but will have to keep a close eye on him as he was very bradycardic for the paramedics and they did have to give him atropine. His current EKG shows a paced rhythm. Is unclear exactly how slow his heart rate was for the paramedics because they were basing the rate off of a difficult palpable peripheral pulse when they gave the atropine. I will continue to reassess patient to make sure that his mental status continues to improve and that his blood pressure stays stable and that his respiratory status continues to improve. 12/18/18 23:21 Patient's respiratory status continues to be improved. He still has some scattered wheezing therefore give him another albuterol treatment. We will give him some Solu-Medrol. We will recheck his venous blood gas to make sure that his acidosis is improving and not worsening. His mental status is good and that when I talk to him he wakes up immediately and is able answer questions appropriate. He continues to deny any pain. 12/19/18 00:09 His blood gas is worsening. Clinically starting to worsen as well. We will go forward with intubation. 12/19/18 01:04 Patient was intubated on first attempt without any difficulty. No hypoxemia or complications during intubation. Chest x-ray is read as appropriate to positioning. They do again mention some interstitial changes which she said could be pneumonia versus other potential causes. Suspect that is not pneumonia based on the fact that he has no leukocytosis no fever. I will hold off on antibiotics at this time. 12/19/18 02:16 Patient is doing well in the ventilator. He will occasionally have some movement despite the Versed sedation. I am trying to avoid placing a propofol as I do not want his blood pressure to decrease too far. We will give him a push dose of fentanyl which will likely help. Most at times he is well sedated with Versed alone. He does have elevated troponin. I suspect this probably related to hypoxemia while in the retirement prior to paramedics arrival. I d id repeat his troponins to make sure it is not uptrending and his troponin is stable and not uptrending. Patient denied any chest pain to me when he was awakened. I spoken with the hospitalist, Dr. Hemphill, who agrees to evaluate the patient for admission. - Vital Signs Vital signs: Temp Pulse Resp BP Pulse Ox 98.5 F 18 126/66 H 94 12/18/18 22:35 12/19/18 02:51 12/19/18 02:51 12/19/18 02:51 - Laboratory Result Diagrams: 12/18/18 22:35 12/18/18 22:35 Laboratory results interpreted by me: 12/18/18 12/18/18 12/18/18 22:35 22:35 22:35 Hgb 12.0 L MCH 26.0 L MCHC 30.7 L RDW 20.9 H Plt Count 103 L Seg Neutrophils % 80.5 H Lymphocytes % 6.3 L VBG pH 7.18 L* VBG pCO2 69.0 H* Sodium 145.4 H Potassium 5.4 H Chloride 112 H BUN 53 H Creatinine 1.76 H Est GFR ( Amer) 45 L Est GFR (Non-Af Amer) 37 L Glucose 143 H Total Protein 6.1 L 12/18/18 23:40 Hgb MCH MCHC RDW Plt Count Seg Neutrophils % Lymphocytes % VBG pH 7.16 L* VBG pCO2 76.7 H* Sodium Potassium Chloride BUN Creatinine Est GFR ( Amer) Est GFR (Non-Af Amer) Glucose Total Protein - EKG Interpretation by Me Additional EKG results interpreted by me: 12/18/18 23:24 EKG is reviewed and interpreted by me. EKG shows a ventricularly paced rhythm with a rate of 74 bpm. Patient does have some mild ST segment elevation in leads V3 through V6 without reciprocal ST segment depression. Old EKG for comparison is from September 19, 2018. Previous EKG shows a atrially paced rhythm. Procedures - Intubation Orotracheal Airway evaluation: Normal anatomy Mallampati Classification: Class 1 Intubation method: Orotracheal Blade type: Silvia Blade size: 4 ETT size: 7.5 ETT secured at: Lips ETT secured at (cm): 23 Breath Sounds after Intubation: Equal End tidal CO2 confirmed: Yes Post Intubation Xray: Yes - appropriate positioning Intubation Complications: No complications Critical Care Note - Critical Care Note Total time excluding time spent on procedures (mins): 75 Comments: Critical care time for this patient not including time spent in procedures approximately 75 minutes due to frequent reevaluations, management of respiratory failure, management of his respiratory acidosis, management of sedation. Discharge - Discharge Clinical Impression: Respiratory acidosis, Elevated troponin Respiratory failure Qualifiers: Chronicity: acute Respiratory failure complication: hypoxia and hypercapnia Qualified Code(s): J96.01 - Acute respiratory failure with hypoxia Condition: Serious Disposition: ADMITTED INPATIENT Admitting Provider: Joby (Hospitalist) Unit Admitted: ICU
[2018-12-18 22:54] LABS: VENOUS BLOOD BASE EXCESS -4.6 mmol/L
[2018-12-18 22:58] LABS: ABSOLUTE EOSINOPHILS # (AUTO) 0.2 10^3/uL (0.0-0.6); ABSOLUTE LYMPHOCYTES (AUTO) 0.5 10^3/uL (0.5-4.7); ABSOLUTE MONOCYTES (AUTO) 0.9 10^3/uL (0.1-1.4); ABSOLUTE NEUT (AUTO) 6.9 10^3/uL (1.7-8.2); BASOPHILS % (AUTO) 0.5 % (0-2); EOSINOPHILS % (AUTO) 2.5 % (0-6); HEMATOCRIT 39.2 % (37.9-51.0); LYMPHOCYTES % (AUTO) 6.3 % (13-45); MEAN CORPUSCULAR HGB CONC 30.7 g/dL (32.0-36.0); MEAN CORPUSCULAR VOLUME 85 fl (80-97); MONOCYTES % (AUTO) 10.2 % (3-13); PLATELET COUNT 103 10^3/uL (150-450); RED BLOOD COUNT 4.61 10^6/uL (4.35-5.55); RED CELL DISTRIBUTION WIDTH 20.9 % (11.5-14.0); SEGMENTED NEUTROPHILS % (AUTO) 80.5 % (42-78); TOTAL CELLS COUNTED % (AUTO) 100 %; WHITE BLOOD COUNT 8.6 10^3/uL (4.0-10.5)
[2018-12-18 23:02] LABS: VENOUS BLOOD PH 7.18 (7.30-7.42)
--- NOTE | 2018-12-18 23:09 | RADIOLOGY REPORT (SQ) ---
CLINICAL HISTORY: chest pain COMPARISON: None. TECHNIQUE: XR CHEST 1 VIEW 12/18/2018 10:32 PM CDT FINDINGS: The heart is enlarged. Left AICD is present. Sternotomy was performed. There are patchy bilateral perihilar and left basilar consolidations. There is no pleural effusion. There is no pneumothorax. There are no acute osseous findings. IMPRESSION: Possible developing pneumonia.
[2018-12-18 23:17] LABS: ALANINE AMINOTRANSFERASE 25 U/L (21-72); ALBUMIN 3.5 g/dL (3.5-5.0); ALKALINE PHOSPHATASE 86 U/L (38-126); ANION GAP 7 (5-19); ASPARTATE AMINO TRANSFERASE 17 U/L (17-59); BILIRUBIN,DIRECT 0.4 mg/dL (0.0-0.4); BILIRUBIN,TOTAL 0.5 mg/dL (0.2-1.3); BLOOD UREA NITROGEN 53 mg/dL (7-20); CALCIUM 8.7 mg/dL (8.4-10.2); CARBON DIOXIDE 26 mmol/L (22-30); CHLORIDE 112 mmol/L (98-107); GLUCOSE 143 mg/dL (75-110); POTASSIUM 5.4 mmol/L (3.6-5.0); SODIUM 145.4 mmol/L (137-145); TOTAL PROTEIN 6.1 g/dL (6.3-8.2)
[2018-12-18] MEDS ORDERED: METHYLPREDNISOLONE INJ 125 MG/2 ML SDV IV ONE (23:30)
[2018-12-18] MEDS ORDERED: ALBUTEROL SULFATE 0.083% NEB 2.5 MG/3 ML AMPUL NEB ONE (23:30)
--- NOTE | 2018-12-18 23:38 | EKG REPORT ---
SEVERITY:- ABNORMAL ECG - A-V DUAL-PACED COMPLEXES W/ SOME INHIBITION VPC : Confirmed by: Alesha Jacobo 18-Dec-2018 23:38:21
[2018-12-18 23:59] LABS: VENOUS BLOOD BASE EXCESS -3.4 mmol/L; VENOUS BLOOD HCO3 26.9 mmol/L (20-32)
[2018-12-19 00:03] LABS: VENOUS BLOOD PCO2 76.7 mmHg (35-63); VENOUS BLOOD PH 7.16 (7.30-7.42)
[2018-12-19] MEDS ORDERED: ETOMIDATE INJ/PF 20 MG/10 ML SDV IV ONE ×2 (00:10→13:53)
[2018-12-19] MEDS ORDERED: ROCURONIUM BROMIDE INJ 50 MG/5 ML VIAL IV ONE ×2 (00:10→13:53)
[2018-12-19] MEDS ORDERED: MIDAZOLAM 2 MG/2 ML INJ IV ONE (00:22)
[2018-12-19] MEDS ORDERED: MIDAZOLAM HCL 50 MG/100 ML RTUINJ IV PRN (00:22)
--- NOTE | 2018-12-19 00:59 | RADIOLOGY REPORT (SQ) ---
EXAM DESCRIPTION: XR CHEST 1 VIEW COMPLETED DATE/TME: 12/19/2018 00:22 CLINICAL HISTORY: 88 years, Male, post intubation COMPARISON: 12/18/2018 NUMBER OF VIEWS: One TECHNIQUE: AP view of the chest LIMITATIONS: None. FINDINGS: Again noted are prominent interstitial opacities with a retrocardiac airspace opacity. The right costophrenic angle has been collimated from view. The heart is enlarged with a left chest wall pacemaker/AICD in place. There is no pneumothorax. The endotracheal tube terminates approximately 5 cm above the maximo. Nasogastric tube traverses the thorax with its tip outside the [id number] but beneath the diaphragm. IMPRESSION: Satisfactory positioning of the endotracheal and nasogastric tubes. Otherwise, no significant change compared to the prior exam. copyright 2010 [employer]- All Rights Reserved
[2018-12-19] MEDS ORDERED: ACETAMINOPHEN 325 MG TABLET NG PRN (02:14)
[2018-12-19] MEDS ORDERED: IPRATROPIUM/ALBUTEROL 0.5-2.5 MG/3 ML AMPUL NEB PRN (02:14)
[2018-12-19] MEDS ORDERED: FENTANYL CITRATE INJ/PF 100 MCG/2 ML AMPUL IV ONE (02:16)
[2018-12-19] MEDS ORDERED: VANCOMYCIN HCL 0 MG in DEXTROSE 5%-WATER 250 ML IV NR (02:30)
[2018-12-19] MEDS ORDERED: VANCOMYCIN HCL INJ 1000 MG VIAL IV PRN (02:40)
[2018-12-19] MEDS: NORMAL SALINE 1000 ML 1,000 ML IV PRN ×4 (02:51→23:08)
[2018-12-19] MEDS ORDERED: LACTULOSE SYRUP 20 GM/30 ML UDCUP NG ONE (03:00)
[2018-12-19] MEDS ORDERED: VANCOMYCIN HCL 1,250 MG in DEXTROSE 5%-WATER 250 ML IV ONE (03:30)
[2018-12-19 04:20] LABS: HEMATOCRIT 36.3 % (37.9-51.0); HEMOGLOBIN 11.3 g/dL (13.5-17.0); MEAN CORPUSCULAR HEMOGLOBIN 26.4 pg (27.0-33.4); MEAN CORPUSCULAR HGB CONC 31.1 g/dL (32.0-36.0); MEAN CORPUSCULAR VOLUME 85 fl (80-97); RED BLOOD COUNT 4.28 10^6/uL (4.35-5.55); WHITE BLOOD COUNT 7.1 10^3/uL (4.0-10.5)
[2018-12-19 04:22] LABS: PLATELET COUNT 78 10^3/uL (150-450)
[2018-12-19 04:36] LABS: ANION GAP 5 (5-19); BLOOD UREA NITROGEN 51 mg/dL (7-20); CALCIUM 8.5 mg/dL (8.4-10.2); CARBON DIOXIDE 26 mmol/L (22-30); CHLORIDE 114 mmol/L (98-107); GLUCOSE 143 mg/dL (75-110); POTASSIUM 5.4 mmol/L (3.6-5.0); SODIUM 145.4 mmol/L (137-145)
[2018-12-19 04:41] LABS: ABSOLUTE LYMPHOCYTES# (MANUAL) 0.3 10^3/uL (0.5-4.7); ANISOCYTOSIS 3+; BASOPHILS % (MANUAL) 0 % (0-2); EOSINOPHILS % (MANUAL) 0 % (0-6); LYMPHOCYTES % (MANUAL) 4 % (13-45); MONOCYTES % (MANUAL) 0 % (3-13); SEGMENTED NEUTROPHILS % (MAN) 96 % (42-78); TOTAL CELLS COUNTED 100
[2018-12-19 04:46] LABS: PLATELET COMMENT DECREASED
--- NOTE | 2018-12-19 04:48 | PDOC H&P ---
History of Present Illness Admission Date/PCP: 12/19/18 02:42 WENDY DOUGLASS MD Patient complains of: Altered mental status History of Present Illness: SOHAIL GALVAN is a 88 year old male past medical history of coronary artery disease, congestive heart failure, atrial fibrillation, status post permanent pacemaker and AICD and stage IV chronic kidney disease. Patient presents from alf with sudden onset difficulty with breathing and altered mental stat us, EMS find some and severe shortness of breath with faint pulses and initiate atropine and placed him on CPAP. Mental status briefly improved he denied pain but failed trial of BiPAP with ABG showing worsening hypercapnia and he was intubated by the emergency room provider. His work-up show hypercapnic respiratory failure, positive troponin of 0.18, hypercapnia 5.4, EKG is in dual paced rhythm. Past Medical History Cardiac Medical History: Reports: Atrial Fibrillation, Congestive Heart Failure, Myocardial Infarction, Hypertension Denies: Pulmonary Embolism Endocrine Medical History: Reports: Diabetes Mellitus Type 2 Psychiatric Medical History: Denies: Depression Hematology: Reports: Anemia Past Surgical History Past Surgical History: Reports: Internal Defibrillator, Pacemaker Social History Information Source: Emergency Med Personnel, [facility] Records Lives with: Long Term Smoking Status: Unknown if Ever Smoked Frequency of Alcohol Use: None Hx Recreational Drug Use: No Drugs: None Hx Prescription Drug Abuse: No - Advance Directive Resuscitation Status: Full Code Family History Family History: Hypertension, Other - Unobtainable Parental Family History Reviewed: Yes - Unobtainable Children Family History Reviewed: No - Unobtainable Sibling(s) Family History Reviewed.: No - Unobtainable Medication/Allergy Home Medications: Aspirin [Adult Aspirin] 81 mg PO DAILY 07/22/18 Carvedilol [Coreg 25 mg Tablet] 1 tab PO Q12 07/22/18 Sacubitril/Valsartan [Entresto 97 mg/103 mg Tablet] 1 tab PO BID 07/22/18 Acetaminophen [Tylenol 325 mg Tablet] 650 mg PO Q4HP PRN tablet 07/25/18 Docusate Sodium [Colace 100 mg Capsule] 100 mg PO BID capsule 07/25/18 Glucagon,Human Recombinant [Glucagen Inj 1 mg Vial] 1 mg IM PRN PRN vial 07/25/18 Magnesium Hydroxide [Milk of Magnesia 30 ml Udcup] 30 ml PO HSP PRN udc 07/25/18 Fluoxetine HCl [Prozac 20 mg Capsule] 20 mg PO DAILY 09/18/18 Furosemide [Lasix 20 mg Tablet] 20 mg PO QAM 09/18/18 Ipratropium/Albuterol Sulfate [Duoneb 3 ml Ampul] 3 ml NEB RTQ12 PRN 09/18/18 Allergies/Adverse Reactions: prednisone Allergy (Mild, Verified 09/18/18 01:55) Hives cephalexin [From Keflex] Allergy (Verified 09/18/18 01:55) gatifloxacin [From Tequin] Allergy (Verified 09/18/18 01:55) Penicillins Allergy (Verified 09/18/18 01:55) red dye Allergy (Verified 09/18/18 01:55) Review of Systems ROS unobtainable: Due to mental status - Obtunded Physical Exam Vital Signs: Temp Pulse Resp BP Pulse Ox 98.1 F 60 18 121/66 96 12/19/18 03:06 12/19/18 03:10 12/19/18 03:10 12/19/18 03:10 12/19/18 03:50 Intake & Output 12/17/18 12/18/18 12/19/18 11:59 11:59 11:59 Intake Total 20 Balance 20 Weight 112.7 kg General appearance: PRESENT: no acute distress, well-developed, well-nourished. ABSENT: cooperative Head exam: PRESENT: atraumatic, normocephalic Eye exam: PRESENT: conjunctiva pink, EOMI, PERRLA. ABSENT: scleral icterus Ear exam: PRESENT: normal external ear exam Mouth exam: PRESENT: dry mucosa. ABSENT: laceration, moist Neck exam: ABSENT: carotid bruit, JVD, lymphadenopathy, thyromegaly Respiratory exam: PRESENT: crackles, symmetrical. ABSENT: accessory muscle use, rales, rhonchi Cardiovascular exam: PRESENT: RRR, +S1, +S2. ABSENT: diastolic murmur, rubs, systolic murmur Pulses: PRESENT: +1 pedal pulses bilateral. ABSENT: normal dorsalis pedis pul Vascular exam: PRESENT: normal capillary refill GI/Abdominal exam: PRESENT: hypoactive bowel sounds, normal bowel sounds, soft. ABSENT: distended, guarding, mass, organolmegaly, rebound, tenderness Rectal exam: PRESENT: deferred Extremities exam: PRESENT: full ROM. ABSENT: calf tenderness, clubbing, pedal edema Neurological exam: ABSENT: alert, altered, oriented to time, oriented to s ituation, CN II-XII grossly intact Psychiatric exam: PRESENT: other - Intubated and sedated Skin exam: PRESENT: dry, intact, warm. ABSENT: cyanosis, rash Results Laboratory Results: 12/18/18 12/18/18 12/18/18 22:35 22:35 22:35 WBC 8.6 RBC 4.61 Hgb 12.0 L Hct 39.2 MCV 85 MCH 26.0 L MCHC 30.7 L RDW 20.9 H Plt Count 103 L Seg Neutrophils % 80.5 H Lymphocytes % 6.3 L Monocytes % 10.2 Eosinophils % 2.5 Basophils % 0.5 Absolute Neutrophils 6.9 Absolute Lymphocytes 0.5 Absolute Monocytes 0.9 Absolute Eosinophils 0.2 Absolute Basophils 0.0 VBG pH 7.18 L* VBG pCO2 69.0 H* VBG HCO3 25.0 VBG Base Excess -4.6 Sodium 145.4 H Potassium 5.4 H Chloride 112 H Carbon Dioxide 26 Anion Gap 7 BUN 53 H Creatinine 1.76 H Est GFR ( Amer) 45 L Est GFR (Non-Af Amer) 37 L Glucose 143 H Calcium 8.7 Total Bilirubin 0.5 AST 17 ALT 25 Alkaline Phosphatase 86 Total Protein 6.1 L Albumin 3.5 12/18/18 12/19/18 23:40 04:10 WBC RBC Hgb Hct MCV MCH MCHC RDW Plt Count Seg Neutrophils % Not Reportable Lymphocytes % Not Reportable Monocytes % Not Reportable Eosinophils % Not Reportable Basophils % Not Reportable Absolute Neutrophils Not Reportable Absolute Lymphocytes Not Reportable Absolute Monocytes Not Reportable Absolute Eosinophils Not Reportable Absolute Basophils Not Reportable VBG pH 7.16 L* VBG pCO2 76.7 H* VBG HCO3 26.9 VBG Base Excess -3.4 Sodium Potassium Chloride Carbon Dioxide Anion Gap BUN Creatinine Est GFR ( Amer) Est GFR (Non-Af Amer) Glucose Calcium Total Bilirubin AST ALT Alkaline Phosphatase Total Protein Albumin 12/18/18 12/19/18 22:35 01:10 Troponin I 0.183 0.181 Impressions: Chest X-Ray 12/19/18 00:22 IMPRESSION: Satisfactory positioning of the endotracheal and nasogastric tubes. Otherwise, no significant change compared to the prior exam. copyright 2010 [employer]- All Rights Reserved Assessment and Plan - Diagnosis (1) Pneumonia Is this a current diagnosis for this admission?: Yes Plan: Bilateral infiltrate, empiric antibiotics, follow-up CBC and blood culture (2) Elevated troponin Is this a current diagnosis for this admission?: Yes Plan: Likely non-ST elevation SD, nondiagnostic EKG dual paced rhythm, aspirin initiated, normotensive, correct respiratory failure. Follow-up cardiac enzymes (3) Respiratory acidosis Is this a current diagnosis for this admission?: Yes Plan: Secondary to pneumonia, continue ventilator management follow-up ABG and chest x-ray (4) Respiratory failure Qualifiers: Chronicity: acute Respiratory failure complication: hypoxia and hypercapnia Qualified Code(s): J96.01 - Acute respiratory failure with hypoxia; J96.02 - Acute respiratory failure with hypercapnia Is this a current diagnosis for this admission?: Yes Plan: Acute hypercapnic respiratory failure secondary to pneumonia, continue ventilator management, follow-up ABG (5) Chronic kidney disease Is this a current diagnosis for this admission?: Yes Plan: Avoid nephrotoxic meds and doses follow-up chemistry (6) Hyperkalemia Is this a current diagnosis for this admission?: Yes Plan: Lactulose trial, follow-up chemistry (7) Thrombocytopenia Is this a current diagnosis for this admission?: Yes Plan: Chronic at baseline. Follow-up CBC - Time Time Spent with patient: 35 or more minutes - Inpatient Certification Medical Necessity: Need Close Monitoring Due to Risk of Patient Decompensation
[2018-12-19 05:47] LABS: ARTERIAL BLOOD BASE EXCESS -2.1 mmol/L; ARTERIAL BLOOD H2CO3 1.35 mmol/L (1.05-1.35); ARTERIAL BLOOD HCO3 23.7 mmol/L (20-24); ARTERIAL BLOOD O2 SATURATION 95.7 % (94-98); ARTERIAL BLOOD PCO2 44.7 mmHg (35-45); ARTERIAL BLOOD PH 7.34 (7.35-7.45); ARTERIAL BLOOD PO2 83.8 mmHg (80-100); ARTERIAL BLOOD TOTAL CO2 25.1 mmol/L (23-27)
[2018-12-19 05:50] LABS: ARTERIAL BLOOD FIO2 35%
[2018-12-19] MEDS: MIDAZOLAM HCL 50 MG/100 ML RTUINJ IV PRN ×4 (06:00→20:22)
[2018-12-19] MEDS ORDERED: CEFEPIME 2 GM/D5W RTU 2 GM/50 ML RTUPB IV SCH (06:00)
[2018-12-19] MEDS ORDERED: VANCOMYCIN HCL INJ 1000 MG VIAL ONE (06:35)
[2018-12-19] MEDS ORDERED: VANCOMYCIN HCL INJ 500 MG VIAL ONE (06:36)
[2018-12-19] MEDS ORDERED: CEFEPIME INJ 2 GM VIAL ONE (06:36)
[2018-12-19] MEDS: HEPARIN SOD (PORCINE) 5,000 UNIT/ML 1 ML SYRINGE SUBCUT SCH ×3 (06:55→21:25)
--- NOTE | 2018-12-19 08:16 | RADIOLOGY REPORT (SQ) ---
EXAM DESCRIPTION: CHEST SINGLE VIEW COMPLETED DATE/TIME: 12/19/2018 6:19 am REASON FOR STUDY: intubated COMPARISON: Chest films 07/22/2018, 12/18/2018, 12/19/2018 EXAM PARAMETERS: NUMBER OF VIEWS: One view. TECHNIQUE: Single frontal radiographic view of the chest acquired. RADIATION DOSE: NA LIMITATIONS: None. FINDINGS: LUNGS AND PLEURA: Minimal retrocardiac airspace disease. Mild pulmonary vascular congesti on with few Shine lines from interstitial edema. No gross pleural effusion or pneumothorax MEDIASTINUM AND HILAR STRUCTURES: Prominent central pulmonary arteries HEART AND VASCULAR STRUCTURES: Mild cardiomegaly, old CABG. BONES: No acute findings. HARDWARE: Endotracheal tube tip 6 cm above the maximo nasogastric tube tip and side port in the stoma ch. Left-sided multiple lead pacemaker unchanged OTHER: No other significant finding. IMPRESSION: Tubes and lines in good positioning. Minimal residual interstitial edema Minimal retrocardiac airspace disease TECHNICAL DOCUMENTATION: JOB ID: [id number] [employer]- All Rights Reserved Reading location - IP/workstation name: [email or web address]
[2018-12-19 08:35] LABS: APPEARANCE,URINE CLEAR; BILIRUBIN,URINE NEGATIVE (NEGATIVE); COLOR,URINE YELLOW; GLUCOSE, URINE NEGATIVE (NEGATIVE); KETONES,URINE TRACE mg/dL (NEGATIVE); LEUKOCYTE ESTERASE,URINE NEGATIVE (NEGATIVE); NITRITE,URINE NEGATIVE (NEGATIVE); PROTEIN,URINE NEGATIVE (NEGATIVE); URINE SPECIFIC GRAVITY 1.019; UROBILINOGEN,URINE NEGATIVE mg/dL (<2.0)
[2018-12-19] MEDS: IPRATROPIUM/ALBUTEROL 0.5-2.5 MG/3 ML AMPUL NEB SCH ×2 (08:43→15:19)
[2018-12-19] MEDS: PANTOPRAZOLE SODIUM 40 MG VIAL IV SCH ×2 (11:29→21:24)
[2018-12-19] MEDS: ASPIRIN 325 MG TABLET NG SCH (11:30)
[2018-12-19] MEDS: LEVALBUTEROL HCL NEB 1.25 MG/3 ML AMPUL NEB SCH ×3 (11:39→20:00)
--- NOTE | 2018-12-19 11:49 | PDOC PROGRESS REPORT ---
Subjective Progress Note for:: 12/19/18 Subjective:: This is 88 years old male patient from [facility] with multiple comorbidities including atrial fibrillation, congestive heart failure, [place], hypertension, type 2 diabetes mellitus stage IV CKD and anemia with chief complaint of difficulty breathing and altered mental status. When EMS seen the patient patient found to be in severe respiratory distress with faint pulse for which she was given atropine and placed him on CPAP. His ABG shows hypercapnia with PCO2 of 76. Patient failed trial of BiPAP with ABG showing worsening hypercapnia patient emergently intubated by ER attending. Patient transferred to ICU. His chest x-ray shows multiple patchy bilateral and perihilar and left basilar consolidation which is possible developing pneumonia. Patient has been started on cefepime and vancomycin. This morning his ABG is normalized. His blood work shows hyperkalemia with potassium 5.4, creatinine of 1.76 and BUN of 53. Reason For Visit: ACUTE RESPIRATORY FAILURE,ARF,PNEUMONIA Physical Exam Vital Signs: Temp Pulse Resp BP Pulse Ox 96.6 F L 60 18 112/54 L 94 12/19/18 08:00 12/19/18 10:00 12/19/18 10:00 12/19/18 10:00 12/19/18 10:00 Intake & Output 12/18/18 12/19/18 12/20/18 06:59 06:59 06:59 Intake Total 830 91 Output Total 250 150 Balance 580 -59 Weight 111.5 kg General appearance: PRESENT: no acute distress Head exam: PRESENT: atraumatic Eye exam: PRESENT: conjunctiva pink Neck exam: ABSENT: carotid bruit, JVD, lymphadenopathy, thyromegaly Respiratory exam: PRESENT: decreased breath sounds, rales Cardiovascular exam: PRESENT: irregular rhythm Results Laboratory Results: 12/19/18 04:10 12/19/18 04:10 12/18/18 12/18/18 12/18/18 22:35 22:35 22:35 WBC 8.6 RBC 4.61 Hgb 12.0 L Hct 39.2 MCV 85 MCH 26.0 L MCHC 30.7 L RDW 20.9 H Plt Count 103 L Seg Neutrophils % 80.5 H Lymphocytes % 6.3 L Monocytes % 10.2 Eosinophils % 2.5 Basophils % 0.5 Absolute Neutrophils 6.9 Absolute Lymphocytes 0.5 Absolute Monocytes 0.9 Absolute Eosinophils 0.2 Absolute Basophils 0.0 Carbonic Acid HCO3/H2CO3 Ratio ABG pH ABG pCO2 ABG pO2 ABG HCO3 ABG O2 Saturation ABG Base Excess VBG pH 7.18 L* VBG pCO2 69.0 H* VBG HCO3 25.0 VBG Base Excess -4.6 FiO2 Sodium 145.4 H Potassium 5.4 H Chloride 112 H Carbon Dioxide 26 Anion Gap 7 BUN 53 H Creatinine 1.76 H Est GFR ( Amer) 45 L Est GFR (Non-Af Amer) 37 L Glucose 143 H Calcium 8.7 Total Bilirubin 0.5 AST 17 ALT 25 Alkaline Phosphatase 86 Total Protein 6.1 L Albumin 3.5 Urine Color Urine Appearance Urine pH Ur Specific [place] Urine Protein Urine Glucose (UA) Urine Ketones Urine Blood Urine Nitrite Ur Leukocyte Esterase Urine WBC (Auto) Urine RBC (Auto) 12/18/18 12/19/18 12/19/18 23:40 04:10 04:10 WBC 7.1 RBC 4.28 L Hgb 11.3 L Hct 36.3 L MCV 85 MCH 26.4 L MCHC 31.1 L RDW 21.0 H Plt Count 78 L Seg Neutrophils % Not Reportable Lymphocytes % Not Reportable Monocytes % Not Reportable Eosinophils % Not Reportable Basophils % Not Reportable Absolute Neutrophils Not Reportable Absolute Lymphocytes Not Reportable Absolute Monocytes Not Reportable Absolute Eosinophils Not Reportable Absolute Basophils Not Reportable Carbonic Acid HCO3/H2CO3 Ratio ABG pH ABG pCO2 ABG pO2 ABG HCO3 ABG O2 Saturation ABG Base Excess VBG pH 7.16 L* VBG pCO2 76.7 H* VBG HCO3 26.9 VBG Base Excess -3.4 FiO2 Sodium 145.4 H Potassium 5.4 H Chloride 114 H Carbon Dioxide 26 Anion Gap 5 BUN 51 H Creatinine 1.72 H Est GFR ( Amer) 46 L Est GFR (Non-Af Amer) 38 L Glucose 143 H Calcium 8.5 Total Bilirubin AST ALT Alkaline Phosphatase Total Protein Albumin Urine Color Urine Appearance Urine pH Ur Specific [place] Urine Protein Urine Glucose (UA) Urine Ketones Urine Blood Urine Nitrite Ur Leukocyte Esterase Urine WBC (Auto) Urine RBC (Auto) 12/19/18 12/19/18 05:37 08:00 WBC RBC Hgb Hct MCV MCH MCHC RDW Plt Count Seg Neutrophils % Lymphocytes % Monocytes % Eosinophils % Basophils % Absolute Neutrophils Absolute Lymphocytes Absolute Monocytes Absolute Eosinophils Absolute Basophils Carbonic Acid 1.35 HCO3/H2CO3 Ratio 17:1 ABG pH 7.34 L ABG pCO2 44.7 ABG pO2 83.8 ABG HCO3 23.7 ABG O2 Saturation 95.7 ABG Base Excess -2.1 VBG pH VBG pCO2 VBG HCO3 VBG Base Excess FiO2 35% Sodium Potassium Chloride Carbon Dioxide Anion Gap BUN Creatinine Est GFR ( Amer) Est GFR (Non-Af Amer) Glucose Calcium Total Bilirubin AST ALT Alkaline Phosphatase Total Protein Albumin Urine Color YELLOW Urine Appearance CLEAR Urine pH 5.0 Ur Specific [place] 1.019 Urine Protein NEGATIVE Urine Glucose (UA) NEGATIVE Urine Ketones TRACE H Urine Blood NEGATIVE Urine Nitrite NEGATIVE Ur Leukocyte Esterase NEGATIVE Urine WBC (Auto) 1 Urine RBC (Auto) 1 12/18/18 12/19/18 22:35 01:10 Troponin I 0.183 0.181 Impressions: Chest X-Ray 12/19/18 06:00 IMPRESSION: Tubes and lines in good positioning. Minimal residual interstitial edema Minimal retrocardiac airspace disease Assessment and Plan - Diagnosis (1) Acute encephalopathy Is this a current diagnosis for this admission?: Yes Plan: Most probably metabolic. Continue current regimen (2) Possible healthcare associated pneumonia Is this a current diagnosis for this admission?: Yes Plan: Continue vancomycin and cefepime. (3) Acute hypercapnic respiratory failure Is this a current diagnosis for this admission?: Yes Plan: Patient is intubated and on mechanical ventilation. Dr. Estevez has been following this patient. Gradually will wean off the ventilator. (4) Elevated troponin Is this a current diagnosis for this admission?: Yes Plan: Probably to demand ischemia. (5) Hyperkalemia Is this a current diagnosis for this admission?: Yes Plan: We will give him Kayexalate dextrose and insulin and bicarb. (6) Chronic kidney disease, stage IV (severe) Is this a current diagnosis for this admission?: Yes Plan: His creatinine and BUN slightly improved. We will avoid nephrotoxic agents and will involve sales and leasing agent in his management. (7) Thrombocytopenia Is this a current diagnosis for this admission?: Yes Plan: Unclear etiology. (8) Chronic a-fib Is this a current diagnosis for this admission?: Yes Plan: Rate controlled.
[2018-12-19] MEDS ORDERED: INSULIN REG, HUMAN 100 UNIT/ML 3 ML VIAL (PYX) IV ONE (12:15)
[2018-12-19] MEDS ORDERED: DEXTROSE 50%-WATER 25 GM/50 ML DISP.SYRIN IV ONE (12:15)
[2018-12-19] MEDS ORDERED: SODIUM POLYSTYRENE SULFONATE 15 GM/60 ML PO ONE (12:15)
[2018-12-19 12:47] LABS: CREATINE KINASE MB 0.84 ng/mL (<4.55)
[2018-12-19 12:50] LABS: TROPONIN I 0.107 ng/mL
[2018-12-19 16:07] LABS: ANION GAP 7 (5-19); BLOOD UREA NITROGEN 48 mg/dL (7-20); CALCIUM 8.3 mg/dL (8.4-10.2); CARBON DIOXIDE 21 mmol/L (22-30); CHLORIDE 116 mmol/L (98-107); GLUCOSE 219 mg/dL (75-110); POTASSIUM 4.7 mmol/L (3.6-5.0); SODIUM 143.5 mmol/L (137-145)
[2018-12-19] MEDS: CEFEPIME HCL 2 GM in DEXTROSE 5%-WATER 50 ML IV SCH (18:13)
[2018-12-19 18:21] LABS: CREATINE KINASE MB 0.59 ng/mL (<4.55); TROPONIN I 0.095 ng/mL
[2018-12-19] MEDS: FENTANYL CITRATE INJ/PF 100 MCG/2 ML AMPUL IV PRN (18:30)
[2018-12-20 00:31] LABS: CREATINE KINASE MB 0.67 ng/mL (<4.55); TROPONIN I 0.093 ng/mL
[2018-12-20] MEDS: IPRATROPIUM/ALBUTEROL 0.5-2.5 MG/3 ML AMPUL NEB SCH ×3 (00:37→18:12)
[2018-12-20] MEDS: LEVALBUTEROL HCL NEB 1.25 MG/3 ML AMPUL NEB SCH ×6 (00:38→20:53)
[2018-12-20] MEDS: MIDAZOLAM HCL 50 MG/100 ML RTUINJ IV PRN ×3 (01:41→18:22)
[2018-12-20] MEDS: FENTANYL CITRATE INJ/PF 100 MCG/2 ML AMPUL IV PRN ×2 (02:22→19:40)
[2018-12-20 04:10] LABS: ARTERIAL BLOOD BASE EXCESS -2.2 mmol/L; ARTERIAL BLOOD H2CO3 1.38 mmol/L (1.05-1.35); ARTERIAL BLOOD HCO3 23.8 mmol/L (20-24); ARTERIAL BLOOD PCO2 45.9 mmHg (35-45); ARTERIAL BLOOD PH 7.33 (7.35-7.45); ARTERIAL BLOOD PO2 87.4 mmHg (80-100); ARTERIAL BLOOD TOTAL CO2 25.2 mmol/L (23-27)
[2018-12-20 04:11] LABS: ARTERIAL BLOOD FIO2 35%
[2018-12-20 04:13] LABS: ABSOLUTE LYMPHOCYTES (AUTO) 0.4 10^3/uL (0.5-4.7); ABSOLUTE MONOCYTES (AUTO) 0.5 10^3/uL (0.1-1.4); ABSOLUTE NEUT (AUTO) 4.6 10^3/uL (1.7-8.2); BASOPHILS % (AUTO) 0.3 % (0-2); EOSINOPHILS % (AUTO) 0.2 % (0-6); HEMATOCRIT 34.6 % (37.9-51.0); LYMPHOCYTES % (AUTO) 7.9 % (13-45); MEAN CORPUSCULAR HEMOGLOBIN 26.5 pg (27.0-33.4); MEAN CORPUSCULAR HGB CONC 31.6 g/dL (32.0-36.0); MEAN CORPUSCULAR VOLUME 84 fl (80-97); MONOCYTES % (AUTO) 9.8 % (3-13); RED BLOOD COUNT 4.13 10^6/uL (4.35-5.55); RED CELL DISTRIBUTION WIDTH 21.2 % (11.5-14.0); SEGMENTED NEUTROPHILS % (AUTO) 81.8 % (42-78); TOTAL CELLS COUNTED % (AUTO) 100 %; WHITE BLOOD COUNT 5.6 10^3/uL (4.0-10.5)
[2018-12-20 04:31] LABS: ALANINE AMINOTRANSFERASE 19 U/L (21-72); ALBUMIN 2.5 g/dL (3.5-5.0); ALKALINE PHOSPHATASE 69 U/L (38-126); ASPARTATE AMINO TRANSFERASE 12 U/L (17-59); BILIRUBIN,DIRECT 0.3 mg/dL (0.0-0.4); BILIRUBIN,TOTAL 0.4 mg/dL (0.2-1.3); BLOOD UREA NITROGEN 44 mg/dL (7-20); CALCIUM 8.5 mg/dL (8.4-10.2); CHLORIDE 117 mmol/L (98-107); GLUCOSE 148 mg/dL (75-110); POTASSIUM 4.6 mmol/L (3.6-5.0); TOTAL PROTEIN 4.8 g/dL (6.3-8.2)
[2018-12-20 04:36] LABS: CARBON DIOXIDE 26 mmol/L (22-30); SODIUM 145.9 mmol/L (137-145)
[2018-12-20 04:40] LABS: ANION GAP 3 (5-19)
[2018-12-20 04:41] LABS: PLATELET COUNT 79 10^3/uL (150-450)
[2018-12-20] MEDS: CEFEPIME HCL 2 GM in DEXTROSE 5%-WATER 50 ML IV SCH ×2 (05:43→18:22)
[2018-12-20] MEDS: HEPARIN SOD (PORCINE) 5,000 UNIT/ML 1 ML SYRINGE SUBCUT SCH ×3 (06:01→21:27)
--- NOTE | 2018-12-20 07:17 | RADIOLOGY REPORT (SQ) ---
EXAM DESCRIPTION: XR CHEST 1 VIEW COMPLETED DATE/TME: 12/20/2018 02:35 CLINICAL HISTORY: 88 years Male, intubated COMPARISON: One day prior. NUMBER OF VIEWS/TECHNIQUE: 1/AP FINDINGS: Mild mixed interstitial and airspace opacity. Small patchy opacity-effusion of the left lower hemithorax. Mildly enlarged cardiac silhouette. Adequate appearing endotracheal tube. Adequate appearing enteric tube partially obscured. Sternotomy. Cardiac/mediastinal hardware/clips. Left cardiac stimulator with leads. No pneumothorax. Stable bony thorax. IMPRESSION: Mild mixed interstitial and airspace opacity. Small patchy opacity-effusion of the left lower hemithorax. Interval worsening.
[2018-12-20] MEDS ORDERED: VANCOMYCIN HCL 1,500 MG in DEXTROSE 5%-WATER 250 ML IV SCH (08:00)
[2018-12-20] MEDS: ASPIRIN 325 MG TABLET NG SCH (09:44)
[2018-12-20] MEDS: PANTOPRAZOLE SODIUM 40 MG VIAL IV SCH ×2 (09:44→21:43)
[2018-12-20] MEDS: NORMAL SALINE 1000 ML 1,000 ML IV PRN (09:47)
--- NOTE | 2018-12-20 12:20 | PDOC PROGRESS REPORT ---
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 When EMS seen the patient patient found to be in severe respiratory distress with faint pulse for which she was given atropine and placed him on CPAP. His ABG shows hypercapnia with PCO2 of 76. Patient failed trial of BiPAP with ABG showing worsening hypercapnia patient emergently intubated by ER attending. Patient transferred to ICU. His chest x-ray shows multiple patchy bilateral and perihilar and left basilar consolidation which is possible developing pneumonia. Patient has been started on cefepime and vancomycin. This morning his ABG is normalized. His blood work shows hyperkalemia with potassium 5.4, creatinine of 1.76 and BUN of 53. 12/20/2018: Patient remained intubated. His tracheal aspirate culture reported no growth in 24 hours. Patient has been on cefepime and vancomycin. Reason For Visit: ACUTE RESPIRATORY FAILURE,ARF,PNEUMONIA Physical Exam Vital Signs: Temp Pulse Resp BP Pulse Ox 98.1 F 61 18 127/80 H 100 12/20/18 10:00 12/20/18 11:43 12/20/18 11:43 12/20/18 10:00 12/20/18 11:43 Intake & Output 12/19/18 12/20/18 12/21/18 06:59 06:59 06:59 Intake Total 830 1541 1134 Output Total 250 955 210 Balance 580 586 924 Weight 111.5 kg 114.5 kg General appearance: PRESENT: no acute distress Head exam: PRESENT: atraumatic Neck exam: ABSENT: carotid bruit, JVD, lymphadenopathy, thyromegaly Respiratory exam: PRESENT: crackles - Bilateral, decreased breath sounds Cardiovascular exam: PRESENT: irregular rhythm GI/Abdominal exam: PRESENT: normal bowel sounds, soft. ABSENT: distended, guarding, mass, organolmegaly, rebound, tenderness Results Laboratory Results: 12/20/18 03:51 12/20/18 03:51 12/19/18 12/20/18 12/20/18 15:24 03:51 03:51 WBC 5.6 RBC 4.13 L Hgb 11.0 L Hct 34.6 L MCV 84 MCH 26.5 L MCHC 31.6 L RDW 21.2 H Plt Count 79 L Seg Neutrophils % 81.8 H Lymphocytes % 7.9 L Monocytes % 9.8 Eosinophils % 0.2 Basophils % 0.3 Absolute Neutrophils 4.6 Absolute Lymphocytes 0.4 L Absolute Monocytes 0.5 Absolute Eosinophils 0.0 Absolute Basophils 0.0 Carbonic Acid HCO3/H2CO3 Ratio ABG pH ABG pCO2 ABG pO2 ABG HCO3 ABG O2 Saturation ABG Base Excess FiO2 Sodium 143.5 Potassium 4.7 Chloride 116 H Carbon Dioxide 21 L Anion Gap 7 BUN 48 H Creatinine 1.52 H Est GFR ( Amer) 53 L Est GFR (Non-Af Amer) 44 L Glucose 219 H Calcium 8.3 L Magnesium 2.3 Total Bilirubin AST ALT Alkaline Phosphatase Total Protein Albumin 12/20/18 12/20/18 03:51 04:04 WBC RBC Hgb Hct MCV MCH MCHC RDW Plt Count Seg Neutrophils % Lymphocytes % Monocytes % Eosinophils % Basophils % Absolute Neutrophils Absolute Lymphocytes Absolute Monocytes Absolute Eosinophils Absolute Basophils Carbonic Acid 1.38 H HCO3/H2CO3 Ratio 17:1 ABG pH 7.33 L ABG pCO2 45.9 H ABG pO2 87.4 ABG HCO3 23.8 ABG O2 Saturation 96.0 ABG Base Excess -2.2 FiO2 35% Sodium 145.9 H Potassium 4.6 Chloride 117 H Carbon Dioxide 26 Anion Gap 3 L BUN 44 H Creatinine 1.46 H Est GFR ( Amer) 55 L Est GFR (Non-Af Amer) 46 L Glucose 148 H Calcium 8.5 Magnesium Total Bilirubin 0.4 AST 12 L ALT 19 L Alkaline Phosphatase 69 Total Protein 4.8 L Albumin 2.5 L 12/18/18 12/19/18 12/19/18 22:35 01:10 12:04 Creatine Kinase < 20 L CK-MB (CK-2) Troponin I 0.183 0.181 12/19/18 12/19/18 12/19/18 12:04 17:42 17:42 Creatine Kinase < 20 L CK-MB (CK-2) 0.84 0.59 Troponin I 0.107 0.095 12/19/18 12/19/18 23:26 23:26 Creatine Kinase < 20 L CK-MB (CK-2) 0.67 Troponin I 0.093 Impressions: Chest X-Ray 12/20/18 02:35 IMPRESSION: Mild mixed interstitial and airspace opacity. Small patchy opacity-effusion of the left lower hemithorax. Interval worsening. Assessment and Plan - Diagnosis (1) Acute encephalopathy Is this a current diagnosis for this admission?: Yes Plan: Most probably metabolic. Continue current regimen (2) Possible healthcare associated pneumonia Is this a current diagnosis for this admission?: Yes Plan: Continue current regimen. (3) Acute hypercapnic respiratory failure Is this a current diagnosis for this admission?: Yes Plan: Patient is on mechanical ventilator. (4) Elevated troponin Is this a current diagnosis for this admission?: Yes Plan: Probably to demand ischemia. (5) Hyperkalemia Is this a current diagnosis for this admission?: Yes Plan: Has resolved (6) Chronic kidney disease, stage IV (severe) Is this a current diagnosis for this admission?: Yes Plan: His creatinine and BUN slightly improved. We will avoid nephrotoxic agents and will involve ice bag assembler in his management. (7) Thrombocytopenia Is this a current diagnosis for this admission?: Yes (8) Chronic a-fib Is this a current diagnosis for this admission?: Yes
--- NOTE | 2018-12-20 15:00 | PDOC CONSULTATION ---
Consultation Consult Date: 12/20/18 Provider Consulted: CORY LOVE Consult reason:: I was asked to see the patient due to abnormal kidney function. History of Present Illness Admission Date/PCP: 12/19/18 02:42 WENDY DOUGLASS MD History of Present Illness: SOHAIL GALVAN is a 88 year old male with history of coronary artery disease, congestive heart failure, chronic atrial fibrillation, pacemaker/AICD placement, chronic kidney disease stage III, hypertension and diabetes mellitus type 2 who was brought from the [facility] yesterday because of altered mental status and shortness of breath. EMS came and found the patient with a heart rate of 34 and was given atropine 0.5 mg IV also placed the patient on CPAP. Later on it appears like he was also tried on BiPAP but failed to improve so patient was intubated. Initial evaluation showed a chest x-ray consistent with pneumonia so patient was initiated on IV antibiotics. Patient also has respiratory acidosis and initial ABG. In terms of the kidney function his initial BUN was 53, creatinine of 1.76 and EGFR 37. He was hydrated upon presentation to the emergency room. Today his BUN was 44, creatinine of 1.46 and EGFR of 46. For the last couple of months the patient's baseline creatinine ranges anywhere between 1.4-1.6 with a EGFR of 43-47. His urinalysis is negative for protein or blood. Today patient remains to be intubated and sedated. His IV fluids was changed to KVO. Vitals have been stable otherwise. He is making urine. Yesterday he made about 955 mL of urine since admission. Past Medical History Cardiac Medical History: Reports: Atrial Fibrillation, CHF-Systolic, Coronary Artery Disease, Hypertension-primary, Myocardial Infarction Endocrine Medical History: Reports: Diabetes Mellitus Type 2 Renal/ Medical History: Reports: Chronic Kidney Disease Stage III Past Surgical History Past Surgical History: Reports: Internal Defibrillator, Pacemaker Social History Information Source: [facility] Records Lives with: [facility] Smoking Status: Unknown if Ever Smoked Frequency of Alcohol Use: None Hx Recreational Drug Use: No Drugs: None Hx Prescription Drug Abuse: No - Advance Directive Resuscitation Status: Full Code Family History Family History: Hypertension Parental Family History Reviewed: No - Unobtainable currently Children Family History Reviewed: Unknown Sibling(s) Family History Reviewed.: Unknown Medication/Allergy Home Medications: Acetaminophen [Tylenol 325 mg Tablet] 650 mg PO Q4HP PRN 12/19/18 Aspirin [Ecotrin 81 mg EC Tablet] 81 mg PO DAILY 12/19/18 Carvedilol [Coreg 25 mg Tablet] 25 mg PO Q12 12/19/18 Docusate Sodium [Colace 100 mg Capsule] 100 mg PO BID 12/19/18 Furosemide [Lasix 20 mg Tablet] 20 mg PO DAILY 12/19/18 Insulin Lispro [Humalog Insulin 100 Unit/1 ml 3 ml Vial] 0 unit SUBCUT .SLD SCALE 12/19/18 Ipratropium/Albuterol Sulfate [Duoneb 3 ml Ampul] 3 ml NEB RTQ6HP PRN 12/19/18 Mag Hydrox/Al Hydrox/Simeth [Maalox Plus Susp 30 Udcup] 30 ml PO Q6HP PRN 12/19/18 Magnesium Hydroxide [Milk of Magnesia 30 ml Udcup] 30 ml PO ASDIR PRN 12/19/18 Potassium Chloride [Klor-Con M20] 20 meq PO DAILY 12/19/18 Sacubitril/Valsartan [Entresto 97 mg/103 mg Tablet] 1 tab PO Q12 12/19/18 Allergies/Adverse Reactions: prednisone Allergy (Mild, Verified 09/18/18 01:55) Hives cephalexin [From Keflex] Allergy (Verified 09/18/18 01:55) gatifloxacin [From Tequin] Allergy (Verified 09/18/18 01:55) Penicillins Allergy (Verified 09/18/18 01:55) red dye Allergy (Verified 09/18/18 01:55) Review of Systems ROS unobtainable: Due to endotracheal tube, Due to mental status Physical Exam Vital Signs: Temp Pulse Resp BP Pulse Ox 97.9 F 61 18 132/64 H 100 12/20/18 14:00 12/20/18 14:00 12/20/18 14:00 12/20/18 14:00 12/20/18 14:00 Intake & Output 12/19/18 12/20/18 12/21/18 06:59 06:59 06:59 Intake Total 830 1541 1134 Output Total 250 955 410 Balance 580 586 724 Weight 111.5 kg 114.5 kg Exam: General appearance: Patient is currently intubated Head exam: PRESENT: atraumatic, normocephalic Eye exam: PRESENT: Eyes are closed Mouth exam: PRESENT: moist, neck supple, tongue midline Neck exam: PRESENT: full ROM. ABSENT: carotid bruit, JVD, lymphadenopathy, thyromegaly Respiratory exam: PRESENT: Coarse breath sounds to auscultation bilaterally. A BSENT: rales, rhonchi, stridor, wheezes Cardiovascular exam: PRESENT: RRR, soft +S1, +S2. ABSENT: systolic murmur Pulses: PRESENT: normal radial pulses, normal dorsalis pedis pulses GI/Abdominal exam: PRESENT: Hypoactive bowel sounds, soft. Positive scrotal edema ABSENT: guarding, mass, tenderness Rectal exam: Deferred Extremities exam: PRESENT: full ROM. Grade 2 bilateral lower extremity pitting edema ABSENT: calf tenderness Musculoskeletal: PRESENT: full ROM. ABSENT: deformity Neurological exam: PRESENT: Sedated Psychiatric exam: PRESENT: Cannot be assessed currently due to being sedated Skin exam: PRESENT: intact, dry, warm. ABSENT: rash Results Laboratory Results: 12/20/18 03:51 12/20/18 03:51 12/19/18 12/20/18 12/20/18 15:24 03:51 03:51 WBC 5.6 RBC 4.13 L Hgb 11.0 L Hct 34.6 L MCV 84 MCH 26.5 L MCHC 31.6 L RDW 21.2 H Plt Count 79 L Seg Neutrophils % 81.8 H Lymphocytes % 7.9 L Monocytes % 9.8 Eosinophils % 0.2 Basophils % 0.3 Absolute Neutrophils 4.6 Absolute Lymphocytes 0.4 L Absolute Monocytes 0.5 Absolute Eosinophils 0.0 Absolute Basophils 0.0 Carbonic Acid HCO3/H2CO3 Ratio ABG pH ABG pCO2 ABG pO2 ABG HCO3 ABG O2 Saturation ABG Base Excess FiO2 Sodium 143.5 Potassium 4.7 Chloride 116 H Carbon Dioxide 21 L Anion Gap 7 BUN 48 H Creatinine 1.52 H Est GFR ( Amer) 53 L Est GFR (Non-Af Amer) 44 L Glucose 219 H Calcium 8.3 L Magnesium 2.3 Total Bilirubin AST ALT Alkaline Phosphatase Total Protein Albumin 12/20/18 12/20/18 03:51 04:04 WBC RBC Hgb Hct MCV MCH MCHC RDW Plt Count Seg Neutrophils % Lymphocytes % Monocytes % Eosinophils % Basophils % Absolute Neutrophils Absolute Lymphocytes Absolute Monocytes Absolute Eosinophils Absolute Basophils Carbonic Acid 1.38 H HCO3/H2CO3 Ratio 17:1 ABG pH 7.33 L ABG pCO2 45.9 H ABG pO2 87.4 ABG HCO3 23.8 ABG O2 Saturation 96.0 ABG Base Excess -2.2 FiO2 35% Sodium 145.9 H Potassium 4.6 Chloride 117 H Carbon Dioxide 26 Anion Gap 3 L BUN 44 H Creatinine 1.46 H Est GFR ( Amer) 55 L Est GFR (Non-Af Amer) 46 L Glucose 148 H Calcium 8.5 Magnesium Total Bilirubin 0.4 AST 12 L ALT 19 L Alkaline Phosphatase 69 Total Protein 4.8 L Albumin 2.5 L 12/18/18 12/19/18 12/19/18 22:35 01:10 12:04 Creatine Kinase < 20 L CK-MB (CK-2) Troponin I 0.183 0.181 12/19/18 12/19/18 12/19/18 12:04 17:42 17:42 Creatine Kinase < 20 L CK-MB (CK-2) 0.84 0.59 Troponin I 0.107 0.095 12/19/18 12/19/18 23:26 23:26 Creatine Kinase < 20 L CK-MB (CK-2) 0.67 Troponin I 0.093 Impressions: Chest X-Ray 12/20/18 02:35 IMPRESSION: Mild mixed interstitial and airspace opacity. Small patchy opacity-effusion of the left lower hemithorax. Interval worsening. Assessment & Plan - Diagnosis (1) Acute hypercapnic respiratory failure Is this a current diagnosis for this admission?: Yes Plan: Currently intubated and sedated. Pulmonary on board. (2) Chronic kidney disease, stage III (moderate) Is this a current diagnosis for this admission?: Yes Plan: Patient seems to have very minimal worsening of kidney function on presentation yesterday but is currently within baseline kidney function. Risk factors for chronic kidney disease includes cardiac disease, hypertension and diabetes. There is no obvious proteinuria nor microhematuria. Patient definitely needs to have chronic outpatient follow-up once he he improves. (3) Hypernatremia Is this a current diagnosis for this admission?: Yes Plan: Change IV fluids to half-normal normal saline at [facility]. (4) Anemia Is this a current diagnosis for this admission?: Yes (5) Pneumonia Is this a current diagnosis for this admission?: Yes Plan: On IV cefepime. (6) Congestive heart failure Is this a current diagnosis for this admission?: Yes Plan: He does not seem to be on overt CHF exacerbation but with his lower extremity edema could be due to underlying history of CHF and hypoalbuminemia. Agree with starting the patient with Lasix IV. Dose to be titrated depending on response. - Notes Notes: Thank you very much for this consultation. At this point there is really no further intervention from nephrology needed at this time. We will be happy to see the patient for outpatient follow-up once improvement discharge. - Time Time Spent: 50 to 70 Minutes
[2018-12-20] MEDS: FUROSEMIDE INJ/PF 20 MG/2 ML SDV IV SCH ×2 (15:16→21:43)
[2018-12-20] MEDS ORDERED: FUROSEMIDE INJ/PF 20 MG/2 ML SDV IV SCH (18:00)
[2018-12-20] MEDS: VANCOMYCIN HCL 750 MG in DEXTROSE 5%-WATER 250 ML IV SCH (19:43)
[2018-12-20] MEDS: 1/2 NORMAL SALINE 1,000 ML IV PRN (19:45)
[2018-12-21] MEDS: FENTANYL CITRATE INJ/PF 100 MCG/2 ML AMPUL IV PRN (00:31)
[2018-12-21] MEDS: IPRATROPIUM/ALBUTEROL 0.5-2.5 MG/3 ML AMPUL NEB SCH ×2 (00:42→08:10)
[2018-12-21] MEDS: MIDAZOLAM HCL 50 MG/100 ML RTUINJ IV PRN ×4 (00:46→22:19)
[2018-12-21] MEDS: LEVALBUTEROL HCL NEB 1.25 MG/3 ML AMPUL NEB SCH ×4 (00:46→12:46)
[2018-12-21 03:52] LABS: ANION GAP 5 (5-19); BLOOD UREA NITROGEN 39 mg/dL (7-20); CALCIUM 8.4 mg/dL (8.4-10.2); CARBON DIOXIDE 25 mmol/L (22-30); CHLORIDE 115 mmol/L (98-107); GLUCOSE 131 mg/dL (75-110); POTASSIUM 4.1 mmol/L (3.6-5.0); SODIUM 145.4 mmol/L (137-145)
[2018-12-21 03:54] LABS: ABSOLUTE EOSINOPHILS # (AUTO) 0.2 10^3/uL (0.0-0.6); ABSOLUTE LYMPHOCYTES (AUTO) 0.4 10^3/uL (0.5-4.7); ABSOLUTE MONOCYTES (AUTO) 0.6 10^3/uL (0.1-1.4); ABSOLUTE NEUT (AUTO) 4.2 10^3/uL (1.7-8.2); BASOPHILS % (AUTO) 0.5 % (0-2); EOSINOPHILS % (AUTO) 2.9 % (0-6); HEMATOCRIT 35.6 % (37.9-51.0); HEMOGLOBIN 11.2 g/dL (13.5-17.0); LYMPHOCYTES % (AUTO) 8.4 % (13-45); MEAN CORPUSCULAR HEMOGLOBIN 26.1 pg (27.0-33.4); MEAN CORPUSCULAR HGB CONC 31.4 g/dL (32.0-36.0); MEAN CORPUSCULAR VOLUME 83 fl (80-97); MONOCYTES % (AUTO) 10.4 % (3-13); RED BLOOD COUNT 4.28 10^6/uL (4.35-5.55); RED CELL DISTRIBUTION WIDTH 20.7 % (11.5-14.0); SEGMENTED NEUTROPHILS % (AUTO) 77.8 % (42-78); TOTAL CELLS COUNTED % (AUTO) 100 %; WHITE BLOOD COUNT 5.4 10^3/uL (4.0-10.5)
[2018-12-21 04:18] LABS: PLATELET COUNT 73 10^3/uL (150-450)
[2018-12-21 04:34] LABS: ARTERIAL BLOOD BASE EXCESS 0 mmol/L; ARTERIAL BLOOD H2CO3 1.25 mmol/L (1.05-1.35); ARTERIAL BLOOD HCO3 24.9 mmol/L (20-24); ARTERIAL BLOOD O2 SATURATION 96.1 % (94-98); ARTERIAL BLOOD PCO2 41.5 mmHg (35-45); ARTERIAL BLOOD PO2 82.1 mmHg (80-100); ARTERIAL BLOOD TOTAL CO2 26.2 mmol/L (23-27)
[2018-12-21 04:35] LABS: ARTERIAL BLOOD FIO2 35%
[2018-12-21] MEDS: HEPARIN SOD (PORCINE) 5,000 UNIT/ML 1 ML SYRINGE SUBCUT SCH ×3 (05:50→21:09)
[2018-12-21] MEDS: CEFEPIME HCL 2 GM in DEXTROSE 5%-WATER 50 ML IV SCH ×2 (05:50→17:50)
--- NOTE | 2018-12-21 06:51 | RADIOLOGY REPORT (SQ) ---
EXAM DESCRIPTION: XR CHEST 1 VIEW COMPLETED DATE/TME: 12/21/2018 06:00 CLINICAL HISTORY: 88 years Male, intubated COMPARISON: One day prior. NUMBER OF VIEWS/TECHNIQUE: 1/AP FINDINGS: Moderate bilateral lower hemithorax opacity-effusion. Normal cardiac silhouette size.Adequate appearing endotracheal tube. Adequate appearing enteric tube. Sternotomy. Cardiac/mediastinal hardware/clips. Left cardiac stimulator with leads. No pneumothorax. Stable bony thorax. IMPRESSION: Moderate bilateral lower hemithorax opacity-effusion. Interval worsening.
[2018-12-21] MEDS: VANCOMYCIN HCL 750 MG in DEXTROSE 5%-WATER 250 ML IV SCH ×2 (08:38→21:08)
[2018-12-21] MEDS: PANTOPRAZOLE SODIUM 40 MG VIAL IV SCH ×2 (11:30→21:08)
[2018-12-21] MEDS: ASPIRIN 325 MG TABLET NG SCH (11:30)
[2018-12-21] MEDS: FUROSEMIDE INJ/PF 20 MG/2 ML SDV IV SCH ×2 (11:30→21:08)
[2018-12-21] MEDS: AZITHROMYCIN 500 MG in DEXTROSE 5%-WATER 250 ML IV SCH (11:30)
--- NOTE | 2018-12-21 11:53 | PDOC PROGRESS REPORT ---
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 When EMS seen the patient patient found to be in severe respiratory distress with faint pulse for which she was given atropine and placed him on CPAP. His ABG shows hypercapnia with PCO2 of 76. Patient failed trial of BiPAP with ABG showing worsening hypercapnia patient emergently intubated by ER attending. Patient transferred to ICU. His chest x-ray shows multiple patchy bilateral and perihilar and left basilar consolidation which is possible developing pneumonia. Patient has been started on cefepime and vancomycin. This morning his ABG is normalized. His blood work shows hyperkalemia with potassium 5.4, creatinine of 1.76 and BUN of 53. 12/20/2018: Patient remained intubated. His tracheal aspirate culture reported no growth in 24 hours. Patient has been on cefepime and vancomycin. 12/21/2018: Patient still remains intubated. He has been on cefepime and vancomycin for possible healthcare associated pneumonia. His tracheal aspirate is positive for Haemophilus influenza A and the final report is pending. He has been producing adequate urine. Patient is not ready for weaning trial. Reason For Visit: ACUTE RESPIRATORY FAILURE,ARF,PNEUMONIA Physical Exam Vital Signs: Temp Pulse Resp BP Pulse Ox 97.3 F 60 18 134/64 H 94 12/21/18 08:00 12/21/18 10:00 12/21/18 10:00 12/21/18 10:00 12/21/18 10:00 Intake & Output 12/20/18 12/21/18 12/22/18 06:59 06:59 06:59 Intake Total 1541 1727 19 Output Total 956 4200 550 Balance 586 -8143 -531 Weight 114.5 kg 113.1 kg General appearance: PRESENT: no acute distress Head exam: PRESENT: atraumatic Mouth exam: PRESENT: dry mucosa Neck exam: ABSENT: carotid bruit, JVD, lymphadenopathy, thyromegaly Respiratory exam: PRESENT: decreased breath sounds, rales Cardiovascular exam: PRESENT: irregular rhythm. ABSENT: diastolic murmur, rubs, systolic murmur Results Laboratory Results: 12/21/18 03:22 07/06/19 03:22 12/21/18 12/21/18 12/21/18 03:22 03:22 03:22 WBC 5.4 RBC 4.28 L Hgb 11.2 L Hct 35.6 L MCV 83 MCH 26.1 L MCHC 31.4 L RDW 20.7 H Plt Count 73 L Seg Neutrophils % 77.8 Lymphocytes % 8.4 L Monocytes % 10.4 Eosinophils % 2.9 Basophils % 0.5 Absolute Neutrophils 4.2 Absolute Lymphocytes 0.4 L Absolute Monocytes 0.6 Absolute Eosinophils 0.2 Absolute Basophils 0.0 Carbonic Acid HCO3/H2CO3 Ratio ABG pH ABG pCO2 ABG pO2 ABG HCO3 ABG O2 Saturation ABG Base Excess FiO2 Sodium 145.4 H Potassium 4.1 Chloride 115 H Carbon Dioxide 25 Anion Gap 5 BUN 39 H Creatinine 1.39 H Est GFR ( Amer) 59 L Est GFR (Non-Af Amer) 48 L Glucose 131 H Calcium 8.4 Magnesium 2.1 Triglycerides 101 12/21/18 04:25 WBC RBC Hgb Hct MCV MCH MCHC RDW Plt Count Seg Neutrophils % Lymphocytes % Monocytes % Eosinophils % Basophils % Absolute Neutrophils Absolute Lymphocytes Absolute Monocytes Absolute Eosinophils Absolute Basophils Carbonic Acid 1.25 HCO3/H2CO3 Ratio 19:1 ABG pH 7.40 ABG pCO2 41.5 ABG pO2 82.1 ABG HCO3 24.9 H ABG O2 Saturation 96.1 ABG Base Excess 0 FiO2 35% Sodium Potassium Chloride Carbon Dioxide Anion Gap BUN Creatinine Est GFR ( Amer) Est GFR (Non-Af Amer) Glucose Calcium Magnesium Triglycerides 12/18/18 12/19/18 12/19/18 22:35 01:10 12:04 Creatine Kinase < 20 L CK-MB (CK-2) Troponin I 0.183 0.181 12/19/18 12/19/18 12/19/18 12:04 17:42 17:42 Creatine Kinase < 20 L CK-MB (CK-2) 0.84 0.59 Troponin I 0.107 0.095 12/19/18 12/19/18 23:26 23:26 Creatine Kinase < 20 L CK-MB (CK-2) 0.67 Troponin I 0.093 Impressions: Chest X-Ray 12/21/18 06:00 IMPRESSION: Moderate bilateral lower hemithorax opacity-effusion. Interval worsening. Assessment and Plan - Diagnosis (1) Acute encephalopathy Is this a current diagnosis for this admission?: Yes Plan: Most probably metabolic. Continue current regimen (2) Possible healthcare associated pneumonia Is this a current diagnosis for this admission?: Yes Plan: His tracheal aspirate grew haemophilus influenzae the final report is pending. I will continue his cefepime and vancomycin. (3) Acute hypercapnic respiratory failure Is this a current diagnosis for this admission?: Yes Plan: Patient is on mechanical ventilator. (4) Elevated troponin Is this a current diagnosis for this admission?: Yes Plan: Probably to demand ischemia. (5) Hyperkalemia Is this a current diagnosis for this admission?: Yes Plan: Has resolved (6) Chronic kidney disease, stage IV (severe) Is this a current diagnosis for this admission?: Yes Plan: His creatinine and BUN slightly improved. We will avoid nephrotoxic agents and will involve control panel operator crude unit in his management. (7) Thrombocytopenia Is this a current diagnosis for this admission?: Yes Plan: Unclear etiology. (8) Chronic a-fib Is this a current diagnosis for this admission?: Yes Plan: Rate controlled.
[2018-12-21] MEDS ORDERED: FUROSEMIDE INJ/PF 40 MG/4 ML SDV IV ONE (13:30)
[2018-12-21] MEDS ORDERED: LEVALBUTEROL HCL NEB 1.25 MG/3 ML AMPUL NEB PRN (14:30)
[2018-12-22] MEDS: METOPROLOL TARTRATE PF/INJ 5 MG/5 ML SDV IV PRN (03:25)
[2018-12-22] MEDS: FENTANYL CITRATE INJ/PF 100 MCG/2 ML AMPUL IV PRN (03:33)
[2018-12-22] MEDS: 1/2 NORMAL SALINE 1,000 ML IV PRN (03:52)
[2018-12-22 04:46] LABS: ARTERIAL BLOOD BASE EXCESS 2.5 mmol/L; ARTERIAL BLOOD H2CO3 1.35 mmol/L (1.05-1.35); ARTERIAL BLOOD HCO3 27.6 mmol/L (20-24); ARTERIAL BLOOD O2 SATURATION 95.8 % (94-98); ARTERIAL BLOOD PCO2 44.9 mmHg (35-45); ARTERIAL BLOOD PH 7.41 (7.35-7.45); ARTERIAL BLOOD PO2 79.5 mmHg (80-100)
[2018-12-22 05:08] LABS: ARTERIAL BLOOD FIO2 35%
[2018-12-22] MEDS: CEFEPIME HCL 2 GM in DEXTROSE 5%-WATER 50 ML IV SCH ×2 (05:13→17:30)
[2018-12-22] MEDS: HEPARIN SOD (PORCINE) 5,000 UNIT/ML 1 ML SYRINGE SUBCUT SCH ×3 (06:10→23:10)
[2018-12-22] MEDS ORDERED: DIGOXIN INJ 0.5 MG/2 ML AMPULE IV ONE (06:52)
[2018-12-22] MEDS ORDERED: NORMAL SALINE 1000 ML 1,000 ML IV ONE (06:53)
[2018-12-22 07:21] LABS: ABSOLUTE EOSINOPHILS # (AUTO) 0.2 10^3/uL (0.0-0.6); ABSOLUTE LYMPHOCYTES (AUTO) 0.5 10^3/uL (0.5-4.7); ABSOLUTE MONOCYTES (AUTO) 0.6 10^3/uL (0.1-1.4); ABSOLUTE NEUT (AUTO) 4.9 10^3/uL (1.7-8.2); BASOPHILS % (AUTO) 0.2 % (0-2); EOSINOPHILS % (AUTO) 2.6 % (0-6); HEMATOCRIT 34.5 % (37.9-51.0); LYMPHOCYTES % (AUTO) 8.4 % (13-45); MEAN CORPUSCULAR HGB CONC 31.8 g/dL (32.0-36.0); MEAN CORPUSCULAR VOLUME 82 fl (80-97); MONOCYTES % (AUTO) 9.5 % (3-13); RED BLOOD COUNT 4.22 10^6/uL (4.35-5.55); RED CELL DISTRIBUTION WIDTH 20.5 % (11.5-14.0); SEGMENTED NEUTROPHILS % (AUTO) 79.3 % (42-78); TOTAL CELLS COUNTED % (AUTO) 100 %; WHITE BLOOD COUNT 6.2 10^3/uL (4.0-10.5)
[2018-12-22 07:36] LABS: ALANINE AMINOTRANSFERASE 19 U/L (21-72); ALBUMIN 2.3 g/dL (3.5-5.0); ALKALINE PHOSPHATASE 70 U/L (38-126); ANION GAP 5 (5-19); ASPARTATE AMINO TRANSFERASE 11 U/L (17-59); BILIRUBIN,DIRECT 0.4 mg/dL (0.0-0.4); BILIRUBIN,TOTAL 0.7 mg/dL (0.2-1.3); BLOOD UREA NITROGEN 36 mg/dL (7-20); CALCIUM 8.3 mg/dL (8.4-10.2); CARBON DIOXIDE 26 mmol/L (22-30); CHLORIDE 112 mmol/L (98-107); GLUCOSE 137 mg/dL (75-110); PHOSPHORUS 3.1 mg/dL (2.5-4.5); POTASSIUM 3.6 mmol/L (3.6-5.0); SODIUM 143.2 mmol/L (137-145); TOTAL PROTEIN 4.6 g/dL (6.3-8.2)
--- NOTE | 2018-12-22 07:39 | RADIOLOGY REPORT (SQ) ---
EXAM DESCRIPTION: XR CHEST 1 VIEW COMPLETED DATE/TME: 12/22/2018 06:00 CLINICAL HISTORY: Respiratory Distress. 88 years Male, pna/resp failure COMPARISON: One day prior. NUMBER OF VIEWS/TECHNIQUE: 1/AP FINDINGS: Bilateral lower thoracic opacity/effusion. Adequate appearing endotracheal tube. Adequate appearing enteric tube partially obscured. Sternotomy. Cardiac/mediastinal hardware/clips. Left cardiac stimulator with leads. Mildly enlarged cardiac silhouette. No pneumothorax. Stable bony thorax. IMPRESSION: No significant change.
[2018-12-22 07:49] LABS: PLATELET COUNT 73 10^3/uL (150-450)
[2018-12-22 08:20] LABS: VANCOMYCIN,TROUGH 22.5 ug/mL (5.0-20.0)
--- NOTE | 2018-12-22 09:49 | EKG REPORT ---
SEVERITY:- ABNORMAL ECG - A FIB WITH RVR NON SPECIFIC IVCD : Confirmed by: Alesha Jacobo 22-Dec-2018 09:48:40
[2018-12-22] MEDS: VANCOMYCIN HCL 750 MG in DEXTROSE 5%-WATER 250 ML IV SCH (10:00)
[2018-12-22] MEDS: ASPIRIN 325 MG TABLET NG SCH (10:00)
[2018-12-22] MEDS ORDERED: AMIODARONE HCL 150 MG in DEXTROSE 5%-WATER 100 ML IV ONE (10:30)
[2018-12-22] MEDS: FUROSEMIDE INJ/PF 20 MG/2 ML SDV IV SCH ×2 (10:48→23:13)
[2018-12-22] MEDS: DEXTROSE 5%-WATER 500 ML with AMIODARONE HCL 900 MG IV PRN ×2 (10:49)
--- NOTE | 2018-12-22 12:26 | PDOC PROGRESS REPORT ---
Subjective Progress Note for:: 12/22/18 Subjective:: This is 88 years old male patient from [facility] with multiple comorbidities including atrial fibrillation, congestive heart failure, [place], hypertension, type 2 diabetes mellitus stage IV CKD and anemia with chief complaint of difficulty breathing and altered mental status. When EMS seen the patient patient found to be in severe respiratory distress with faint pulse for which she was given atropine and placed him on CPAP. His ABG shows hypercapnia with PCO2 of 76. Patient failed trial of BiPAP with ABG showing worsening hypercapnia patient emergently intubated by ER attending. Patient transferred to ICU. His chest x-ray shows multiple patchy bilateral and perihilar and left basilar consolidation which is possible developing pneumonia. Patient has been started on cefepime and vancomycin. This morning his ABG is normalized. His blood work shows hyperkalemia with potassium 5.4, creatinine of 1.76 and BUN of 53. 12/20/2018: Patient remained intubated. His tracheal aspirate culture reported no growth in 24 hours. Patient has been on cefepime and vancomycin. 12/21/2018: Patient still remains intubated. He has been on cefepime and vancomycin for possible healthcare associated pneumonia. His tracheal aspirate is positive for Haemophilus influenza A and the final report is pending. He has been producing adequate urine. Patient is not ready for weaning trial. 12/22/2018: Patient remained intubated patient has an episode of hypotension and A. fib with RVR. His Lasix is on hold and patient has been started on amiodarone infusion by Dr. Glover. Reason For Visit: ACUTE RESPIRATORY FAILURE,ARF,PNEUMONIA Physical Exam Vital Signs: Temp Pulse Resp BP Pulse Ox 99.3 F 72 18 124/78 94 12/22/18 12:00 12/22/18 12:00 12/22/18 12:00 12/22/18 12:00 12/22/18 12:00 Intake & Output 12/21/18 12/22/18 12/23/18 06:59 06:59 06:59 Intake Total 1727 3198 101 Output Total 4206 6135 385 Balance -2473 -4277 -284 Weight 113.1 kg 111.1 kg General appearance: PRESENT: no acute distress Mouth exam: PRESENT: dry mucosa Neck exam: ABSENT: carotid bruit, JVD, lymphadenopathy, thyromegaly Respiratory exam: PRESENT: clear to auscultation galo. ABSENT: rales, rhonchi, wheezes Cardiovascular exam: PRESENT: irregular rhythm, tachycardia. ABSENT: diastolic murmur, rubs, systolic murmur Results Laboratory Results: 12/22/18 06:57 12/22/18 06:57 12/22/18 12/22/18 12/22/18 03:28 06:57 06:57 WBC 6.2 RBC 4.22 L Hgb 11.0 L Hct 34.5 L MCV 82 MCH 26.0 L MCHC 31.8 L RDW 20.5 H Plt Count 73 L Seg Neutrophils % 79.3 H Lymphocytes % 8.4 L Monocytes % 9.5 Eosinophils % 2.6 Basophils % 0.2 Absolute Neutrophils 4.9 Absolute Lymphocytes 0.5 Absolute Monocytes 0.6 Absolute Eosinophils 0.2 Absolute Basophils 0.0 Carbonic Acid 1.35 HCO3/H2CO3 Ratio 20:1 ABG pH 7.41 ABG pCO2 44.9 ABG pO2 79.5 L ABG HCO3 27.6 H ABG O2 Saturation 95.8 ABG Base Excess 2.5 FiO2 35% Sodium 143.2 Potassium 3.6 Chloride 112 H Carbon Dioxide 26 Anion Gap 5 BUN 36 H Creatinine 1.48 H Est GFR ( Amer) 55 L Est GFR (Non-Af Amer) 45 L Glucose 137 H Calcium 8.3 L Phosphorus 3.1 Magnesium 1.9 Total Bilirubin 0.7 AST 11 L ALT 19 L Alkaline Phosphatase 70 Total Protein 4.6 L Albumin 2.3 L 12/19/18 08:00 Tracheal Aspirate Gram Stain - Final 12/19/18 08:00 Tracheal Aspirate Sputum Culture - Final Haemophilus Influenzae Greatly Reduced Normal Linnea 12/19/18 08:00 Catheterized Urine Urine Culture - Final NO GROWTH 2 DAYS 12/18/18 12/19/18 12/19/18 22:35 01:10 12:04 Creatine Kinase < 20 L CK-MB (CK-2) Troponin I 0.183 0.181 12/19/18 12/19/18 12/19/18 12:04 17:42 17:42 Creatine Kinase < 20 L CK-MB (CK-2) 0.84 0.59 Troponin I 0.107 0.095 12/19/18 12/19/18 23:26 23:26 Creatine Kinase < 20 L CK-MB (CK-2) 0.67 Troponin I 0.093 Impressions: Chest X-Ray 12/22/18 06:00 IMPRESSION: No significant change. Assessment and Plan - Diagnosis (1) Anasarca Is this a current diagnosis for this admission?: Yes Plan: Multifactorial cause cardiac renal and hyperlipidemia. Temporarily his Lasix is stopped because of hypotension. (2) Atrial fibrillation with RVR Is this a current diagnosis for this admission?: Yes Plan: Patient has been on amiodarone. (3) Acute encephalopathy Is this a current diagnosis for this admission?: Yes (4) Possible healthcare associated pneumonia Is this a current diagnosis for this admission?: Yes (5) Acute hypercapnic respiratory failure Is this a current diagnosis for this admission?: Yes Plan: Patient is on mechanical ventilator. (6) Elevated troponin Is this a current diagnosis for this admission?: Yes Plan: Probably to demand ischemia. (7) Hyperkalemia Is this a current diagnosis for this admission?: Yes Plan: Has resolved (8) Chronic kidney disease, stage IV (severe) Is this a current diagnosis for this admission?: Yes Plan: Kidney function is slightly worsening. (9) Thrombocytopenia Is this a current diagnosis for this admission?: Yes Plan: Unclear etiology. (10) Chronic a-fib Is this a current diagnosis for this admission?: Yes Plan: Rate controlled.
[2018-12-22] MEDS: AZITHROMYCIN 500 MG in DEXTROSE 5%-WATER 250 ML IV SCH (12:32)
[2018-12-22] MEDS ORDERED: VERAPAMIL HCL INJ/PF 5 MG/2 ML SDV IV ONE (12:40)
--- NOTE | 2018-12-22 21:42 | PDOC CONSULTATION ---
Consultation-Blank Consultation: CARDIOLOGY CONSULTATION by Dr. Kourtney Glover on 12/22/2018. Patient seen at 10 AM on 12/22/2018. 60 minutes spent on this patient with more than 50% time spent in direct patient care. REASON FOR CONSULTATION: Atrial fibrillation with rapid ventricular response, and relative hypotension. CONSULT REQUESTING PHYSICIAN: Dr. Meadows, [facility] hospitalist physician. HISTORY of PRESENT ILLNESS: Unable to obtain history from patient since the patient's intubated and sedated. Family members not around. As per records patient was admitted with altered mental status and respiratory distress. As per records EMS found his heart rate to be 34 and was given atropine. But on interrogation of the defibrillator there were no records of low heart rate. The only explanation could be due to severe acidosis there was pacemaker spikes without capture. But there are no strips corroborating this. The patient's interrogation of the AICD on December 19, 2018, shows that the defibrillator is functioning fine, there was some episodes of antitachycardia and atrial fibrillation therapy, but no shocks. There is no ventricular arrhythmias. There was no low heart rates. Last night the patient went into atrial fibrillation episodic with a heart rate in the 150s. There is no firing of the AICD. Note that the patient is existing underlying right bundle branch block pattern. This morning the patient was assessed in atrial fibrillation with ventricular response in the 160s, initially blood pressure was in the 80s and subsequently the blood pressure came up to 100 systolic. As per my instructions the patient was started with amiodarone with a bolus dose in the infusion. At present the patient's atrial for ablation well controlled. The patient has a history of proximal atrial fibrillation. The patient's platelets are low, the patient also has chronic kidney disease. And cardiomyopathy, and history of coronary artery disease. The patient has not been on chronic anticoagulation. Patient will be at high risk for anticoagulation. Will discuss with the family regarding chronic anticoagulation with Coumadin. The patient also is being treated for pneumonia. Past Medical History Cardiac Medical History: Reports: Paroxysmal atrial Fibrillation, CHF-Systolic, Coronary Artery Disease, Hypertension , Myocardial Infarction. 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 Renal/ Medical History: Reports: Chronic Kidney Disease Stage III Past Surgical History: Reports: Internal Defibrillator. Coronary artery bypass graft surgery. Social HistoryLives in Long-Term Smoking Status: Unknown if Ever Smoked Frequency of Alcohol Use: None Hx Recreational Drug Use: No Resuscitation Status: Full Code. The patient's has dementia. Hence, the patient's children are his surrogate healthcare decision makers. Family History: Hypertension Allergies/Adverse Reactions: prednisone Allergy cephalexin Gatifloxacin [From Tequin] Allergy Penicillins Allergy,red dye Allergy (Verified 09/18/18 01:55) Review of Systems.: Unobtainable: Due to patient being intubated and sedated. PHYSICAL EXAMINATION: The patient is mildly obese. He is not fighting the ventilator. He appears to be chronically ill. 12/22/18 12:00 Temperature 99.3 F Temperature Core Source Pulse Rate 72 Respiratory 18 Rate Blood Pressure 124/78 [Left Upper Arm ] Blood Pressure 93 Mean [Left Upper Arm] Blood Pressure Supine Position [Left Upper Arm] Blood Pressure 124 Systolic [Left Upper Arm] O2 Sat by Pulse 94 Oximetry Oxygen Delivery Mechanical Method ( Ventilator includes room air) Percent of 35 Oxygen HEAD: Is atraumatic normocephalic. EYES: Pupils equal round regular reactive to light. ENT: Is negative. NECK: Is supple. There is no JVD. Carotids are equal there is no bruits. Trachea central. LUNGS: Shows dry crackles the left lower lobe and left middle lobe. HEART: S1-S2 is heard. There is no S3 gallop there is no S4 gallop. S1 is of variable intensity. Systolic murmur left sternal border and the apex. There is no rub. ABDOMEN: Soft. There is no hepatosplenomegaly. Bowel sounds are well heard. EXTREMITIES: Femorals are diminished. Leg pulses are diminished. There is no pedal edema. There is no DVT or cellulitis. FILM OR VIDEOTAPE EDITOR and psychiatric: Not examined due to the patient being intubated and sedated. EKG shows atrial fibrillation with intermittent episodes of rapid ventricular response. Nonspecific IVCD of the right bundle branch block pattern. Current Medications Acetaminophen (Tylenol 325 Mg Tablet) 650 mg NG Q4HP PRN PRN Reason: pain or temp greater than 101F Stop: 01/18/19 02:13 Aspirin (Aspirin 325 Mg Tablet) 325 mg NG DAILY YANELY Stop: 01/18/19 09:59 Last Admin: 12/22/18 10:00 Dose: 325 mg Documented by: Fentanyl Citrate (Sublimaze Inj/Pf 100 Mcg/2 Ml Ampule) 75 mcg IV Q3HP PRN PRN Reason: FOR PAIN Stop: 12/26/18 02:33 Last Admin: 12/22/18 03:33 Dose: 75 mcg Documented by: Furosemide (Lasix Inj/Pf 20 Mg/2 Ml Sdv) 20 mg IV Q12 [facility] Stop: 01/19/19 14:59 Last Admin: 12/22/18 23:13 Dose: 20 mg Documented by: Heparin Sodium (Porcine) (Heparin Inj 5,000 Units/Ml 1 Ml Syringe) 5,000 unit SUBCUT Q8 [facility] Stop: 01/18/19 05:59 Last Admin: 12/22/18 23:10 Dose: Not Given Documented by: Midazolam HCl (Versed Rtu 50 Mg/100 Ml Premix Bag) 50 mg in 100 mls @ 0 mls/hr IV CONTINUOUS PRN; Protocol PRN Reason: THIS MED IS NOT "PRN" Stop: 12/26/18 02:33 Last Titration: 12/22/18 23:14 Dose: 2 mg/hr, 4 mls/hr Documented by: Cefepime HCl 2 gm/ Dextrose 50 mls @ 100 mls/hr IV Q12A [facility] Stop: 12/26/18 17:59 Last Infusion: 12/22/18 18:00 Dose: Infused Documented by: Sodium Chloride (Nacl 0.45% 1000 Ml Iv Soln) 1,000 mls @ 30 mls/hr IV CONTINUOUS PRN PRN Reason: THIS MED IS NOT "PRN" Stop: 01/19/19 14:39 Last Infusion: 12/22/18 10:30 Dose: 30 mls/hr Documented by: Azithromycin 500 mg/ Dextrose 250 mls @ 250 mls/hr IV NOON [facility] Stop: 12/28/18 11:59 Last Infusion: 12/22/18 13:32 Dose: Infused Documented by: Amiodarone HCl 900 mg/ (Dextrose) 500 mls @ 0 mls/hr IV CONTINUOUS PRN; Protocol PRN Reason: THIS MED IS NOT "PRN" Stop: 12/25/18 10:29 Last Titration: 12/22/18 17:12 Dose: 0.5 mg/min, 16.67 mls/hr at THIS WAS STARTED BY ME on the a.m. of 12/22/2018. Vancomycin HCl 1,250 mg/ (Dextrose) 250 mls @ 166.667 mls/hr IV QAM YANELY Stop: 12/30/18 07:59 Levalbuterol HCl (Xopenex Neb 1.25 Mg/3 Ml Ampul) 1.25 mg NEB RTQ4HP PRN PRN Reason: FOR WHEEZING Stop: 01/18/19 11:59 Metoprolol Tartrate (Lopressor Inj/Pf 5 Mg/5 Ml Sdv) 2.5 mg IV Q6HP PRN PRN Reason: Give For Sbp > [150] Stop: 01/18/19 02:32 Last Admin: 12/22/18 03:25 Dose: 2.5 mg Documented by: Sodium Chloride (Saline Flush 2.5 Ml Monoject Prefil Syrin) 2.5 ml IV Q8 [facility] Stop: 01/18/19 05:59 Last Admin: 12/22/18 23:10 Dose: Not Given Documented by: Labs- Entire Visit 12/18/18 12/18/18 12/18/18 22:35 22:35 22:35 WBC 8.6 RBC 4.61 Hgb 12.0 L Hct 39.2 MCV 85 MCH 26.0 L MCHC 30.7 L RDW 20.9 H Plt Count 103 L Total Counted Seg Neutrophils % 80.5 H Seg Neuts % (Manual) Lymphocytes % 6.3 L Lymphocytes % (Manual) Monocytes % 10.2 Monocytes % (Manual) Eosinophils % 2.5 Eosinophils % (Manual) Basophils % 0.5 Basophils % (Manual) Absolute Neutrophils 6.9 Abs Neuts (Manual) Absolute Lymphocytes 0.5 Abs Lymphs (Manual) Absolute Monocytes 0.9 Abs Monocytes (Manual) Absolute Eosinophils 0.2 Absolute Eos (Manual) Absolute Basophils 0.0 Abs Basophils (Manual) Platelet Comment Anisocytosis Carbonic Acid HCO3/H2CO3 Ratio ABG pH ABG pCO2 ABG pO2 ABG HCO3 ABG Total CO2 ABG O2 Saturation ABG Base Excess VBG pH VBG pCO2 VBG HCO3 VBG Base Excess FiO2 Sodium 145.4 H Potassium 5.4 H Chloride 112 H Carbon Dioxide 26 Anion Gap 7 BUN 53 H Creatinine 1.76 H Est GFR ( Amer) 45 L Est GFR (Non-Af Amer) 37 L Glucose 143 H POC Glucose Calcium 8.7 Phosphorus Magnesium Total Bilirubin 0.5 Direct Bilirubin 0.4 Neonat Total Bilirubin Not Reportable Neonat Direct Bilirubin Not Reportable Neonat Indirect Bili Not Reportable AST 17 ALT 25 Alkaline Phosphatase 86 Creatine Kinase CK-MB (CK-2) Troponin I 0.183 Total Protein 6.1 L Albumin 3.5 Triglycerides Urine Color Urine Appearance Urine pH Ur Specific [place] Urine Protein Urine Glucose (UA) Urine Ketones Urine Blood Urine Nitrite Urine Bilirubin Urine Urobilinogen Ur Leukocyte Esterase Urine WBC (Auto) Urine RBC (Auto) U Hyaline Cast (Auto) Urine Mucus (Auto) Urine Ascorbic Acid Time Trough Drawn Vancomycin Trough 12/18/18 12/18/18 12/19/18 22:35 23:40 01:10 WBC RBC Hgb Hct MCV MCH MCHC RDW Plt Count Total Counted Seg Neutrophils % Seg Neuts % (Manual) Lymphocytes % Lymphocytes % (Manual) Monocytes % Monocytes % (Manual) Eosinophils % Eosinophils % (Manual) Basophils % Basophils % (Manual) Absolute Neutrophils Abs Neuts (Manual) Absolute Lymphocytes Abs Lymphs (Manual) Absolute Monocytes Abs Monocytes (Manual) Absolute Eosinophils Absolute Eos (Manual) Absolute Basophils Abs Basophils (Manual) Platelet Comment Anisocytosis Carbonic Acid HCO3/H2CO3 Ratio ABG pH ABG pCO2 ABG pO2 ABG HCO3 ABG Total CO2 ABG O2 Saturation ABG Base Excess VBG pH 7.18 L* 7.16 L* VBG pCO2 69.0 H* 76.7 H* VBG HCO3 25.0 26.9 VBG Base Excess -4.6 -3.4 FiO2 Sodium Potassium Chloride Carbon Dioxide Anion Gap BUN Creatinine Est GFR ( Amer) Est GFR (Non-Af Amer) Glucose POC Glucose Calcium Phosphorus Magnesium Total Bilirubin Direct Bilirubin Neonat Total Bilirubin Neonat Direct Bilirubin Neonat Indirect Bili AST ALT Alkaline Phosphatase Creatine Kinase CK-MB (CK-2) Troponin I 0.181 Total Protein Albumin Triglycerides Urine Color Urine Appearance Urine pH Ur Specific [place] Urine Protein Urine Glucose (UA) Urine Ketones Urine Blood Urine Nitrite Urine Bilirubin Urine Urobilinogen Ur Leukocyte Esterase Urine WBC (Auto) Urine RBC (Auto) U Hyaline Cast (Auto) Urine Mucus (Auto) Urine Ascorbic Acid Time Trough Drawn Vancomycin Trough 12/19/18 12/19/18 12/19/18 04:10 04:10 05:37 WBC 7.1 RBC 4.28 L Hgb 11.3 L Hct 36.3 L MCV 85 MCH 26.4 L MCHC 31.1 L RDW 21.0 H Plt Count 78 L Total Counted 100 Seg Neutrophils % Not Reportable Seg Neuts % (Manual) 96 H Lymphocytes % Not Reportable Lymphocytes % (Manual) 4 L Monocytes % Not Reportable Monocytes % (Manual) 0 L Eosinophils % Not Reportable Eosinophils % (Manual) 0 Basophils % Not Reportable Basophils % (Manual) 0 Absolute Neutrophils Not Reportable Abs Neuts (Manual) 6.8 Absolute Lymphocytes Not Reportable Abs Lymphs (Manual) 0.3 L Absolute Monocytes Not Reportable Abs Monocytes (Manual) 0.0 L Absolute Eosinophils Not Reportable Absolute Eos (Manual) 0.0 Absolute Basophils Not Reportable Abs Basophils (Manual) 0.0 Platelet Comment DECREASED Anisocytosis 3+ Carbonic Acid 1.35 HCO3/H2CO3 Ratio 17:1 ABG pH 7.34 L ABG pCO2 44.7 ABG pO2 83.8 ABG HCO3 23.7 ABG Total CO2 25.1 ABG O2 Saturation 95.7 ABG Base Excess -2.1 VBG pH VBG pCO2 VBG HCO3 VBG Base Excess FiO2 35% Sodium 145.4 H Potassium 5.4 H Chloride 114 H Carbon Dioxide 26 Anion Gap 5 BUN 51 H Creatinine 1.72 H Est GFR ( Amer) 46 L Est GFR (Non-Af Amer) 38 L Glucose 143 H POC Glucose Calcium 8.5 Phosphorus Magnesium Total Bilirubin Direct Bilirubin Neonat Total Bilirubin Neonat Direct Bilirubin Neonat Indirect Bili AST ALT Alkaline Phosphatase Creatine Kinase CK-MB (CK-2) Troponin I Total Protein Albumin Triglycerides Urine Color Urine Appearance Urine pH Ur Specific [place] Urine Protein Urine Glucose (UA) Urine Ketones Urine Blood Urine Nitrite Urine Bilirubin Urine Urobilinogen Ur Leukocyte Esterase Urine WBC (Auto) Urine RBC (Auto) U Hyaline Cast (Auto) Urine Mucus (Auto) Urine Ascorbic Acid Time Trough Drawn Vancomycin Trough 12/19/18 12/19/18 12/19/18 08:00 12:04 12:04 WBC RBC Hgb Hct MCV MCH MCHC RDW Plt Count Total Counted Seg Neutrophils % Seg Neuts % (Manual) Lymphocytes % Lymphocytes % (Manual) Monocytes % Monocytes % (Manual) Eosinophils % Eosinophils % (Manual) Basophils % Basophils % (Manual) Absolute Neutrophils Abs Neuts (Manual) Absolute Lymphocytes Abs Lymphs (Manual) Absolute Monocytes Abs Monocytes (Manual) Absolute Eosinophils Absolute Eos (Manual) Absolute Basophils Abs Basophils (Manual) Platelet Comment Anisocytosis Carbonic Acid HCO3/H2CO3 Ratio ABG pH ABG pCO2 ABG pO2 ABG HCO3 ABG Total CO2 ABG O2 Saturation ABG Base Excess VBG pH VBG pCO2 VBG HCO3 VBG Base Excess FiO2 Sodium Potassium Chloride Carbon Dioxide Anion Gap BUN Creatinine Est GFR ( Amer) Est GFR (Non-Af Amer) Glucose POC Glucose Calcium Phosphorus Magnesium Total Bilirubin Direct Bilirubin Neonat Total Bilirubin Neonat Direct Bilirubin Neonat Indirect Bili AST ALT Alkaline Phosphatase Creatine Kinase < 20 L CK-MB (CK-2) 0.84 Troponin I 0.107 Total Protein Albumin Triglycerides Urine Color YELLOW Urine Appearance CLEAR Urine pH 5.0 Ur Specific [place] 1.019 Urine Protein NEGATIVE Urine Glucose (UA) NEGATIVE Urine Ketones TRACE H Urine Blood NEGATIVE Urine Nitrite NEGATIVE Urine Bilirubin NEGATIVE Urine Urobilinogen NEGATIVE Ur Leukocyte Esterase NEGATIVE Urine WBC (Auto) 1 Urine RBC (Auto) 1 U Hyaline Cast (Auto) 8 Urine Mucus (Auto) RARE Urine Ascorbic Acid NEGATIVE Time Trough Drawn Vancomycin Trough 12/19/18 12/19/18 12/19/18 13:11 15:24 17:42 WBC RBC Hgb Hct MCV MCH MCHC RDW Plt Count Total Counted Seg Neutrophils % Seg Neuts % (Manual) Lymphocytes % Lymphocytes % (Manual) Monocytes % Monocytes % (Manual) Eosinophils % Eosinophils % (Manual) Basophils % Basophils % (Manual) Absolute Neutrophils Abs Neuts (Manual) Absolute Lymphocytes Abs Lymphs (Manual) Absolute Monocytes Abs Monocytes (Manual) Absolute Eosinophils Absolute Eos (Manual) Absolute Basophils Abs Basophils (Manual) Platelet Comment Anisocytosis Carbonic Acid HCO3/H2CO3 Ratio ABG pH ABG pCO2 ABG pO2 ABG HCO3 ABG Total CO2 ABG O2 Saturation ABG Base Excess VBG pH VBG pCO2 VBG HCO3 VBG Base Excess FiO2 Sodium 143.5 Potassium 4.7 Chloride 116 H Carbon Dioxide 21 L Anion Gap 7 BUN 48 H Creatinine 1.52 H Est GFR ( Amer) 53 L Est GFR (Non-Af Amer) 44 L Glucose 219 H POC Glucose 175 H Calcium 8.3 L Phosphorus Magnesium Total Bilirubin Direct Bilirubin Neonat Total Bilirubin Neonat Direct Bilirubin Neonat Indirect Bili AST ALT Alkaline Phosphatase Creatine Kinase < 20 L CK-MB (CK-2) Troponin I Total Protein Albumin Triglycerides Urine Color Urine Appearance Urine pH Ur Specific [place] Urine Protein Urine Glucose (UA) Urine Ketones Urine Blood Urine Nitrite Urine Bilirubin Urine Urobilinogen Ur Leukocyte Esterase Urine WBC (Auto) Urine RBC (Auto) U Hyaline Cast (Auto) Urine Mucus (Auto) Urine Ascorbic Acid Time Trough Drawn Vancomycin Trough 12/19/18 12/19/18 12/19/18 17:42 23:26 23:26 WBC RBC Hgb Hct MCV MCH MCHC RDW Plt Count Total Counted Seg Neutrophils % Seg Neuts % (Manual) Lymphocytes % Lymphocytes % (Manual) Monocytes % Monocytes % (Manual) Eosinophils % Eosinophils % (Manual) Basophils % Basophils % (Manual) Absolute Neutrophils Abs Neuts (Manual) Absolute Lymphocytes Abs Lymphs (Manual) Absolute Monocytes Abs Monocytes (Manual) Absolute Eosinophils Absolute Eos (Manual) Absolute Basophils Abs Basophils (Manual) Platelet Comment Anisocytosis Carbonic Acid HCO3/H2CO3 Ratio ABG pH ABG pCO2 ABG pO2 ABG HCO3 ABG Total CO2 ABG O2 Saturation ABG Base Excess VBG pH VBG pCO2 VBG HCO3 VBG Base Excess FiO2 Sodium Potassium Chloride Carbon Dioxide Anion Gap BUN Creatinine Est GFR ( Amer) Est GFR (Non-Af Amer) Glucose POC Glucose Calcium Phosphorus Magnesium Total Bilirubin Direct Bilirubin Neonat Total Bilirubin Neonat Direct Bilirubin Neonat Indirect Bili AST ALT Alkaline Phosphatase Creatine Kinase < 20 L CK-MB (CK-2) 0.59 0.67 Troponin I 0.095 0.093 Total Protein Albumin Triglycerides Urine Color Urine Appearance Urine pH Ur Specific [place] Urine Protein Urine Glucose (UA) Urine Ketones Urine Blood Urine Nitrite Urine Bilirubin Urine Urobilinogen Ur Leukocyte Esterase Urine WBC (Auto) Urine RBC (Auto) U Hyaline Cast (Auto) Urine Mucus (Auto) Urine Ascorbic Acid Time Trough Drawn Vancomycin Trough 12/20/18 12/20/18 12/20/18 03:51 03:51 03:51 WBC 5.6 RBC 4.13 L Hgb 11.0 L Hct 34.6 L MCV 84 MCH 26.5 L MCHC 31.6 L RDW 21.2 H Plt Count 79 L Total Counted Seg Neutrophils % 81.8 H Seg Neuts % (Manual) Lymphocytes % 7.9 L Lymphocytes % (Manual) Monocytes % 9.8 Monocytes % (Manual) Eosinophils % 0.2 Eosinophils % (Manual) Basophils % 0.3 Basophils % (Manual) Absolute Neutrophils 4.6 Abs Neuts (Manual) Absolute Lymphocytes 0.4 L Abs Lymphs (Manual) Absolute Monocytes 0.5 Abs Monocytes (Manual) Absolute Eosinophils 0.0 Absolute Eos (Manual) Absolute Basophils 0.0 Abs Basophils (Manual) Platelet Comment Anisocytosis Carbonic Acid HCO3/H2CO3 Ratio ABG pH ABG pCO2 ABG pO2 ABG HCO3 ABG Total CO2 ABG O2 Saturation ABG Base Excess VBG pH VBG pCO2 VBG HCO3 VBG Base Excess FiO2 Sodium 145.9 H Potassium 4.6 Chloride 117 H Carbon Dioxide 26 Anion Gap 3 L BUN 44 H Creatinine 1.46 H Est GFR ( Amer) 55 L Est GFR (Non-Af Amer) 46 L Glucose 148 H POC Glucose Calcium 8.5 Phosphorus Magnesium 2.3 Total Bilirubin 0.4 Direct Bilirubin 0.3 Neonat Total Bilirubin Not Reportable Neonat Direct Bilirubin Not Reportable Neonat Indirect Bili Not Reportable AST 12 L ALT 19 L Alkaline Phosphatase 69 Creatine Kinase CK-MB (CK-2) Troponin I Total Protein 4.8 L Albumin 2.5 L Triglycerides Urine Color Urine Appearance Urine pH Ur Specific [place] Urine Protein Urine Glucose (UA) Urine Ketones Urine Blood Urine Nitrite Urine Bilirubin Urine Urobilinogen Ur Leukocyte Esterase Urine WBC (Auto) Urine RBC (Auto) U Hyaline Cast (Auto) Urine Mucus (Auto) Urine Ascorbic Acid Time Trough Drawn Vancomycin Trough 12/20/18 12/21/18 12/21/18 04:04 03:22 03:22 WBC 5.4 RBC 4.28 L Hgb 11.2 L Hct 35.6 L MCV 83 MCH 26.1 L MCHC 31.4 L RDW 20.7 H Plt Count 73 L Total Counted Seg Neutrophils % 77.8 Seg Neuts % (Manual) Lymphocytes % 8.4 L Lymphocytes % (Manual) Monocytes % 10.4 Monocytes % (Manual) Eosinophils % 2.9 Eosinophils % (Manual) Basophils % 0.5 Basophils % (Manual) Absolute Neutrophils 4.2 Abs Neuts (Manual) Absolute Lymphocytes 0.4 L Abs Lymphs (Manual) Absolute Monocytes 0.6 Abs Monocytes (Manual) Absolute Eosinophils 0.2 Absolute Eos (Manual) Absolute Basophils 0.0 Abs Basophils (Manual) Platelet Comment Anisocytosis Carbonic Acid 1.38 H HCO3/H2CO3 Ratio 17:1 ABG pH 7.33 L ABG pCO2 45.9 H ABG pO2 87.4 ABG HCO3 23.8 ABG Total CO2 25.2 ABG O2 Saturation 96.0 ABG Base Excess -2.2 VBG pH VBG pCO2 VBG HCO3 VBG Base Excess FiO2 35% Sodium 145.4 H Potassium 4.1 Chloride 115 H Carbon Dioxide 25 Anion Gap 5 BUN 39 H Creatinine 1.39 H Est GFR ( Amer) 59 L Est GFR (Non-Af Amer) 48 L Glucose 131 H POC Glucose Calcium 8.4 Phosphorus Magnesium 2.1 Total Bilirubin Direct Bilirubin Neonat Total Bilirubin Neonat Direct Bilirubin Neonat Indirect Bili AST ALT Alkaline Phosphatase Creatine Kinase CK-MB (CK-2) Troponin I Total Protein Albumin Triglycerides Urine Color Urine Appearance Urine pH Ur Specific [place] Urine Protein Urine Glucose (UA) Urine Ketones Urine Blood Urine Nitrite Urine Bilirubin Urine Urobilinogen Ur Leukocyte Esterase Urine WBC (Auto) Urine RBC (Auto) U Hyaline Cast (Auto) Urine Mucus (Auto) Urine Ascorbic Acid Time Trough Drawn Vancomycin Trough 12/21/18 12/21/18 12/21/18 03:22 04:25 23:55 WBC RBC Hgb Hct MCV MCH MCHC RDW Plt Count Total Counted Seg Neutrophils % Seg Neuts % (Manual) Lymphocytes % Lymphocytes % (Manual) Monocytes % Monocytes % (Manual) Eosinophils % Eosinophils % (Manual) Basophils % Basophils % (Manual) Absolute Neutrophils Abs Neuts (Manual) Absolute Lymphocytes Abs Lymphs (Manual) Absolute Monocytes Abs Monocytes (Manual) Absolute Eosinophils Absolute Eos (Manual) Absolute Basophils Abs Basophils (Manual) Platelet Comment Anisocytosis Carbonic Acid 1.25 HCO3/H2CO3 Ratio 19:1 ABG pH 7.40 ABG pCO2 41.5 ABG pO2 82.1 ABG HCO3 24.9 H ABG Total CO2 26.2 ABG O2 Saturation 96.1 ABG Base Excess 0 VBG pH VBG pCO2 VBG HCO3 VBG Base Excess FiO2 35% Sodium Potassium Chloride Carbon Dioxide Anion Gap BUN Creatinine Est GFR ( Amer) Est GFR (Non-Af Amer) Glucose POC Glucose 132 H Calcium Phosphorus Magnesium Total Bilirubin Direct Bilirubin Neonat Total Bilirubin Neonat Direct Bilirubin Neonat Indirect Bili AST ALT Alkaline Phosphatase Creatine Kinase CK-MB (CK-2) Troponin I Total Protein Albumin Triglycerides 101 Urine Color Urine Appearance Urine pH Ur Specific [place] Urine Protein Urine Glucose (UA) Urine Ketones Urine Blood Urine Nitrite Urine Bilirubin Urine Urobilinogen Ur Leukocyte Esterase Urine WBC (Auto) Urine RBC (Auto) U Hyaline Cast (Auto) Urine Mucus (Auto) Urine Ascorbic Acid Time Trough Drawn Vancomycin Trough 12/22/18 12/22/18 12/22/18 03:28 06:43 06:57 WBC 6.2 RBC 4.22 L Hgb 11.0 L Hct 34.5 L MCV 82 MCH 26.0 L MCHC 31.8 L RDW 20.5 H Plt Count 73 L Total Counted Seg Neutrophils % 79.3 H Seg Neuts % (Manual) Lymphocytes % 8.4 L Lymphocytes % (Manual) Monocytes % 9.5 Monocytes % (Manual) Eosinophils % 2.6 Eosinophils % (Manual) Basophils % 0.2 Basophils % (Manual) Absolute Neutrophils 4.9 Abs Neuts (Manual) Absolute Lymphocytes 0.5 Abs Lymphs (Manual) Absolute Monocytes 0.6 Abs Monocytes (Manual) Absolute Eosinophils 0.2 Absolute Eos (Manual) Absolute Basophils 0.0 Abs Basophils (Manual) Platelet Comment Anisocytosis Carbonic Acid 1.35 HCO3/H2CO3 Ratio 20:1 ABG pH 7.41 ABG pCO2 44.9 ABG pO2 79.5 L ABG HCO3 27.6 H ABG Total CO2 29.0 H ABG O2 Saturation 95.8 ABG Base Excess 2.5 VBG pH VBG pCO2 VBG HCO3 VBG Base Excess FiO2 35% Sodium Potassium Chloride Carbon Dioxide Anion Gap BUN Creatinine Est GFR ( Amer) Est GFR (Non-Af Amer) Glucose POC Glucose 169 H Calcium Phosphorus Magnesium Total Bilirubin Direct Bilirubin Neonat Total Bilirubin Neonat Direct Bilirubin Neonat Indirect Bili AST ALT Alkaline Phosphatase Creatine Kinase CK-MB (CK-2) Troponin I Total Protein Albumin Triglycerides Urine Color Urine Appearance Urine pH Ur Specific [place] Urine Protein Urine Glucose (UA) Urine Ketones Urine Blood Urine Nitrite Urine Bilirubin Urine Urobilinogen Ur Leukocyte Esterase Urine WBC (Auto) Urine RBC (Auto) U Hyaline Cast (Auto) Urine Mucus (Auto) Urine Ascorbic Acid Time Trough Drawn Vancomycin Trough 12/22/18 12/22/18 12/22/18 06:57 07:53 18:02 WBC RBC Hgb Hct MCV MCH MCHC RDW Plt Count Total Counted Seg Neutrophils % Seg Neuts % (Manual) Lymphocytes % Lymphocytes % (Manual) Monocytes % Monocytes % (Manual) Eosinophils % Eosinophils % (Manual) Basophils % Basophils % (Manual) Absolute Neutrophils Abs Neuts (Manual) Absolute Lymphocytes Abs Lymphs (Manual) Absolute Monocytes Abs Monocytes (Manual) Absolute Eosinophils Absolute Eos (Manual) Absolute Basophils Abs Basophils (Manual) Platelet Comment Anisocytosis Carbonic Acid HCO3/H2CO3 Ratio ABG pH ABG pCO2 ABG pO2 ABG HCO3 ABG Total CO2 ABG O2 Saturation ABG Base Excess VBG pH VBG pCO2 VBG HCO3 VBG Base Excess FiO2 Sodium 143.2 Potassium 3.6 Chloride 112 H Carbon Dioxide 26 Anion Gap 5 BUN 36 H Creatinine 1.48 H Est GFR ( Amer) 55 L Est GFR (Non-Af Amer) 45 L Glucose 137 H POC Glucose 138 H Calcium 8.3 L Phosphorus 3.1 Magnesium 1.9 Total Bilirubin 0.7 Direct Bilirubin 0.4 Neonat Total Bilirubin Not Reportable Neonat Direct Bilirubin Not Reportable Neonat Indirect Bili Not Reportable AST 11 L ALT 19 L Alkaline Phosphatase 70 Creatine Kinase CK-MB (CK-2) Troponin I Total Protein 4.6 L Albumin 2.3 L Triglycerides Urine Color Urine Appearance Urine pH Ur Specific [place] Urine Protein Urine Glucose (UA) Urine Ketones Urine Blood Urine Nitrite Urine Bilirubin Urine Urobilinogen Ur Leukocyte Esterase Urine WBC (Auto) Urine RBC (Auto) U Hyaline Cast (Auto) Urine Mucus (Auto) Urine Ascorbic Acid Time Trough Drawn [id number] Vancomycin Trough 22.5 H Chest X-Ray 12/18/18 22:32 IMPRESSION: Possible developing pneumonia. Chest X-Ray 12/19/18 00:22 IMPRESSION: Satisfactory positioning of the endotracheal and nasogastric tubes. Otherwise, no significant change compared to the prior exam. copyright 2010 [employer]- All Rights Reserved Chest X-Ray 12/19/18 06:00 IMPRESSION: Tubes and lines in good positioning. Minimal residual interstitial edema Minimal retrocardiac airspace disease Chest X-Ray 12/20/18 02:35 IMPRESSION: Mild mixed interstitial and airspace opacity. Small patchy opacity-effusion of the left lower hemithorax. Interval worsening. Chest X-Ray 12/21/18 06:00 IMPRESSION: Moderate bilateral lower hemithorax opacity-effusion. Interval worsening. Chest X-Ray 12/22/18 06:00 IMPRESSION: No significant change. 1. Atrial fibrillation with rapid ventricular response: Most likely this is recurrence in the patient with a history of paroxysmal atrial fibrillation. Continue amiodarone infusion. If the blood pressure allows. Continue m etoprolol. Will discuss with the family regarding chronic antecolic coagulation. The only choice on this patient due to thrombocytopenia is Coumadin. But will have to make sure that the patient does not have any contraindications for chronic anticoagulation. Hence would not hernandez to start chronic anticoagulation at present 2. Acute respiratory failure: Secondary to pneumonia and possibly congestive heart failure. Continue ventilator support. And antibiotics. 3.. Acute on chronic systolic heart failure: At present seems to be compensated. 4. Left perihilar and left lower lobe pneumonia: Continue antibiotics. 5. 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 If blood pressure permits then would continue the patient on Entresto. 6. Coronary artery disease: History of prior [place], and history of coronary artery bypass graft surgery. 7. History of hypertension: Blood pressure at present is low. We will continue closely observing the patient blood pressure. 8. Chronic kidney disease stage III: Avoid nephrotoxic drugs. 9. Diabetes mellitus: Continue antidiabetic treatment and serial Accu-Cheks. MEDICATIONS reviewed. Medical decision making is of high complexity. Management plan discussed with the other caregiving providers on the case. Will follow. 60 minutes spent on this patient with more than 50% time spent in direct patient care
[2018-12-22] MEDS: MIDAZOLAM HCL 50 MG/100 ML RTUINJ IV PRN (23:13)
[2018-12-23] MEDS: FENTANYL CITRATE INJ/PF 100 MCG/2 ML AMPUL IV PRN ×2 (00:30→06:51)
[2018-12-23 04:00] LABS: ABSOLUTE EOSINOPHILS # (AUTO) 0.2 10^3/uL (0.0-0.6); ABSOLUTE LYMPHOCYTES (AUTO) 0.5 10^3/uL (0.5-4.7); ABSOLUTE MONOCYTES (AUTO) 0.6 10^3/uL (0.1-1.4); ABSOLUTE NEUT (AUTO) 4.5 10^3/uL (1.7-8.2); BASOPHILS % (AUTO) 0.4 % (0-2); EOSINOPHILS % (AUTO) 3.4 % (0-6); HEMATOCRIT 33.4 % (37.9-51.0); HEMOGLOBIN 10.7 g/dL (13.5-17.0); LYMPHOCYTES % (AUTO) 9.3 % (13-45); MEAN CORPUSCULAR HEMOGLOBIN 26.3 pg (27.0-33.4); MEAN CORPUSCULAR HGB CONC 32.1 g/dL (32.0-36.0); MEAN CORPUSCULAR VOLUME 82 fl (80-97); MONOCYTES % (AUTO) 10.1 % (3-13); RED BLOOD COUNT 4.07 10^6/uL (4.35-5.55); RED CELL DISTRIBUTION WIDTH 20.3 % (11.5-14.0); SEGMENTED NEUTROPHILS % (AUTO) 76.8 % (42-78); TOTAL CELLS COUNTED % (AUTO) 100 %; WHITE BLOOD COUNT 5.9 10^3/uL (4.0-10.5)
[2018-12-23 04:03] LABS: PLATELET COUNT 71 10^3/uL (150-450)
[2018-12-23 04:23] LABS: ALANINE AMINOTRANSFERASE 19 U/L (21-72); ALBUMIN 2.2 g/dL (3.5-5.0); ALKALINE PHOSPHATASE 68 U/L (38-126); ANION GAP 5 (5-19); ASPARTATE AMINO TRANSFERASE 23 U/L (17-59); BILIRUBIN,DIRECT 0.4 mg/dL (0.0-0.4); BILIRUBIN,TOTAL 0.7 mg/dL (0.2-1.3); BLOOD UREA NITROGEN 31 mg/dL (7-20); CALCIUM 7.7 mg/dL (8.4-10.2); CARBON DIOXIDE 25 mmol/L (22-30); CHLORIDE 111 mmol/L (98-107); GLUCOSE 125 mg/dL (75-110); POTASSIUM 3.3 mmol/L (3.6-5.0); SODIUM 140.7 mmol/L (137-145); TOTAL PROTEIN 4.5 g/dL (6.3-8.2)
[2018-12-23 04:41] LABS: TROPONIN I 2.06 ng/mL
[2018-12-23] MEDS: HEPARIN SOD (PORCINE) 5,000 UNIT/ML 1 ML SYRINGE SUBCUT SCH ×3 (06:37→21:40)
[2018-12-23] MEDS: POTASSIUM CHLORIDE 20 MEQ/50 ML RTU IV SCH ×2 (06:38→08:02)
[2018-12-23] MEDS: CEFEPIME HCL 2 GM in DEXTROSE 5%-WATER 50 ML IV SCH ×2 (06:38→17:44)
--- NOTE | 2018-12-23 06:57 | EKG REPORT ---
SEVERITY:- ABNORMAL ECG - ATRIAL-PACED COMPLEXES RIGHT BUNDLE BRANCH BLOCK ST DEPRESSION, CONSIDER ISCHEMIA, INF LEADS : Confirmed by: Alesha Jacobo 23-Dec-2018 06:56:32
--- NOTE | 2018-12-23 06:59 | RADIOLOGY REPORT (SQ) ---
EXAM DESCRIPTION: XR CHEST 1 VIEW COMPLETED DATE/TME: 12/23/2018 00:00 CLINICAL HISTORY: 88 years Male, resp. failure COMPARISON: One day prior. NUMBER OF VIEWS/TECHNIQUE: 1/AP FINDINGS: Bilateral lower thoracic opacity/effusion. Moderate central edema pattern.Adequate appearing endotracheal tube. Adequate appearing enteric tube partially obscured. Sternotomy. Mildly enlarged cardiac silhouette. Cardiac/mediastinal hardware/clips. Left cardiac stimulator with leads. No pneumothorax. Stable bony thorax. IMPRESSION: No significant change.
[2018-12-23 07:05] LABS: ARTERIAL BLOOD BASE EXCESS 1.1 mmol/L; ARTERIAL BLOOD FIO2 35%; ARTERIAL BLOOD H2CO3 1.23 mmol/L (1.05-1.35); ARTERIAL BLOOD HCO3 25.7 mmol/L (20-24); ARTERIAL BLOOD O2 SATURATION 96.7 % (94-98); ARTERIAL BLOOD PCO2 40.8 mmHg (35-45); ARTERIAL BLOOD PH 7.42 (7.35-7.45); ARTERIAL BLOOD PO2 86.6 mmHg (80-100); ARTERIAL BLOOD TOTAL CO2 26.9 mmol/L (23-27)
[2018-12-23] MEDS: VANCOMYCIN HCL 1,250 MG in DEXTROSE 5%-WATER 250 ML IV SCH (08:06)
[2018-12-23] MEDS: FUROSEMIDE INJ/PF 20 MG/2 ML SDV IV SCH ×2 (10:25→21:40)
[2018-12-23] MEDS: ASPIRIN 325 MG TABLET NG SCH (10:26)
--- NOTE | 2018-12-23 12:48 | PDOC PROGRESS REPORT ---
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 When EMS seen the patient patient found to be in severe respiratory distress with faint pulse for which she was given atropine and placed him on CPAP. His ABG shows hypercapnia with PCO2 of 76. Patient failed trial of BiPAP with ABG showing worsening hypercapnia patient emergently intubated by ER attending. Patient transferred to ICU. His chest x-ray shows multiple patchy bilateral and perihilar and left basilar consolidation which is possible developing pneumonia. Patient has been started on cefepime and vancomycin. This morning his ABG is normalized. His blood work shows hyperkalemia with potassium 5.4, creatinine of 1.76 and BUN of 53. 12/20/2018: Patient remained intubated. His tracheal aspirate culture reported no growth in 24 hours. Patient has been on cefepime and vancomycin. 12/21/2018: Patient still remains intubated. He has been on cefepime and vancomycin for possible healthcare associated pneumonia. His tracheal aspirate is positive for Haemophilus influenza A and the final report is pending. He has been producing adequate urine. Patient is not ready for weaning trial. 12/22/2018: Patient remained intubated patient has an episode of hypotension and A. fib with RVR. His Lasix is on hold and patient has been started on amiodarone infusion by Dr. Glover. 12/23/2018: Patient remained intubated. His labs reviewed and it shows mild hypokalemia with potassium 3.3 and his function is relatively improving his creatinine was 1.48 yesterday today 1.37. We will continue the current regimen and comanage with Dr. Glover. Reason For Visit: ACUTE RESPIRATORY FAILURE,ARF,PNEUMONIA Physical Exam Vital Signs: Temp Pulse Resp BP Pulse Ox 98.6 F 60 18 133/67 H 97 12/23/18 11:00 12/23/18 08:00 12/23/18 11:00 12/23/18 10:50 12/23/18 12:07 Intake & Output 12/22/18 12/23/18 12/24/18 06:59 06:59 06:59 Intake Total 2108 620 129 Output Total 5735 1950 240 Balance -4939 -2750 -111 Weight 111.1 kg 109.2 kg General appearance: PRESENT: no acute distress Neck exam: ABSENT: carotid bruit, JVD, lymphadenopathy, thyromegaly Respiratory exam: PRESENT: decreased breath sounds Cardiovascular exam: PRESENT: irregular rhythm Results Laboratory Results: 12/23/18 03:33 12/23/18 03:33 12/23/18 12/23/18 12/23/18 03:33 03:33 06:50 WBC 5.9 RBC 4.07 L Hgb 10.7 L Hct 33.4 L MCV 82 MCH 26.3 L MCHC 32.1 RDW 20.3 H Plt Count 71 L Seg Neutrophils % 76.8 Lymphocytes % 9.3 L Monocytes % 10.1 Eosinophils % 3.4 Basophils % 0.4 Absolute Neutrophils 4.5 Absolute Lymphocytes 0.5 Absolute Monocytes 0.6 Absolute Eosinophils 0.2 Absolute Basophils 0.0 Carbonic Acid 1.23 HCO3/H2CO3 Ratio 20:1 ABG pH 7.42 ABG pCO2 40.8 ABG pO2 86.6 ABG HCO3 25.7 H ABG O2 Saturation 96.7 ABG Base Excess 1.1 FiO2 35% Sodium 140.7 Potassium 3.3 L Chloride 111 H Carbon Dioxide 25 Anion Gap 5 BUN 31 H Creatinine 1.37 H Est GFR ( Amer) > 60 Est GFR (Non-Af Amer) 49 L Glucose 125 H Calcium 7.7 L Magnesium 1.8 Total Bilirubin 0.7 AST 23 ALT 19 L Alkaline Phosphatase 68 Total Protein 4.5 L Albumin 2.2 L 12/18/18 12/19/18 12/19/18 22:35 01:10 12:04 Creatine Kinase < 20 L CK-MB (CK-2) Troponin I 0.183 0.181 NT-Pro-B Natriuret Pep 12/19/18 12/19/18 12/19/18 12:04 17:42 17:42 Creatine Kinase < 20 L CK-MB (CK-2) 0.84 0.59 Troponin I 0.107 0.095 NT-Pro-B Natriuret Pep 12/19/18 12/19/18 12/23/18 23:26 23:26 03:33 Creatine Kinase < 20 L CK-MB (CK-2) 0.67 Troponin I 0.093 2.060 NT-Pro-B Natriuret Pep 08026 H Impressions: Chest X-Ray 12/23/18 00:00 IMPRESSION: No significant change. Assessment and Plan - Diagnosis (1) Acute on chronic systolic (congestive) heart failure Is this a current diagnosis for this admission?: Yes Plan: Continue current regimen (2) Anasarca Is this a current diagnosis for this admission?: Yes Plan: Multifactorial cause cardiac renal and hyperlipidemia. Temporarily his Lasix is stopped because of hypotension. (3) Atrial fibrillation with RVR Is this a current diagnosis for this admission?: Yes Plan: Patient has been on amiodarone. (4) Acute encephalopathy Is this a current diagnosis for this admission?: Yes Plan: Most probably metabolic. Continue current regimen (5) Possible healthcare associated pneumonia Is this a current diagnosis for this admission?: Yes Plan: His tracheal aspirate grew haemophilus influenzae the final report is pending. I will continue his cefepime and vancomycin. (6) Acute hypercapnic respiratory failure Is this a current diagnosis for this admission?: Yes Plan: Patient is on mechanical ventilator. (7) Elevated troponin Is this a current diagnosis for this admission?: Yes Plan: Probably to demand ischemia. (8) Hyperkalemia Is this a current diagnosis for this admission?: Yes Plan: Has resolved (9) Chronic kidney disease, stage IV (severe) Is this a current diagnosis for this admission?: Yes Plan: Kidney function is slightly worsening. (10) Thrombocytopenia Is this a current diagnosis for this admission?: Yes Plan: Unclear etiology. (11) Chronic a-fib Is this a current diagnosis for this admission?: Yes (12) Coronary artery disease Is this a current diagnosis for this admission?: Yes Plan: Continue current regimen.
[2018-12-23] MEDS: DEXTROSE 5%-WATER 500 ML with AMIODARONE HCL 900 MG IV PRN ×2 (13:27)
[2018-12-23] MEDS: AZITHROMYCIN 500 MG in DEXTROSE 5%-WATER 250 ML IV SCH (13:57)
--- NOTE | 2018-12-23 17:03 | RADIOLOGY REPORT (SQ) ---
EXAM DESCRIPTION: KUB/ABDOMEN (SINGLE VIEW) COMPLETED DATE/TIME: 12/23/2018 4:20 pm REASON FOR STUDY: NGT PLACEMENT COMPARISON: None. NUMBER OF VIEWS: One view. TECHNIQUE: Supine radiographic image of the abdomen acquired. LIMITATIONS: None. FINDINGS: BOWEL GAS PATTERN: Nonspecific gas pattern. No evidence for obstruction. CALCIFICATIONS: No suspicious calcifications. SOFT TISSUES: No gross mass or suggestion of organomegaly. HARDWARE: Nasogastric tube tip in the stomach. BONES: No acute fracture. No worrisome bone lesions. OTHER: No other significant finding. IMPRESSION: Nasogastric tube tip in the stomach. TECHNICAL DOCUMENTATION: JOB ID: [id number] [employer]- All Rights Reserved Reading location - IP/workstation name: [email or web address]
[2018-12-23] MEDS: AMIODARONE HCL 200 MG TABLET NG SCH (17:46)
[2018-12-23] MEDS: METOPROLOL TARTRATE PF/INJ 5 MG/5 ML SDV IV PRN (18:04)
--- NOTE | 2018-12-23 22:42 | Progress Note ---
Provider Note Provider Note: CARDIOLOGY PROGRESS NOTE: SUBJECTIVE: The patient atrial fibrillation resolved. The patient is atrial and ventricular paced rhythm. There is no ventricular arrhythmia seen on the monitor. The patient is intubated and sedated. PHYSICAL EXAMINATION: The patient appears to be chronically ill. He is intubated and sedated. He seems to be in no acute distress Selected Entries 12/23/18 12:00 Temperature 98.4 F Temperature Core Source Pulse Rate 60 Respiratory 18 Rate Blood Pressure 153/76 H [Left Upper Arm ] Blood Pressure 101 Mean [Left Upper Arm] Blood Pressure Supine Position [Left Upper Arm] O2 Sat by Pulse 98 Oximetry Oxygen Delivery Mechanical Method ( Ventilator includes room air) Percent of 35 Oxygen HEAD: Is atraumatic normocephalic. EYES: Pupils equal round regular reactive to light. ENT: Is negative. NECK: Is supple. There is no JVD. Carotids are equal there is no bruits. Trachea central. LUNGS: Shows dry crackles the left lower lobe and left middle lobe. HEART: S1-S2 is heard. There is no S3 gallop there is no S4 gallop. S1 is of normal intensity. Systolic murmur left sternal border and the apex. There is no rub. ABDOMEN: Soft. There is no hepatosplenomegaly. Bowel sounds are well heard. EXTREMITIES: Femorals are diminished. Leg pulses are diminished. There is no pedal edema. There is no DVT or cellulitis. Labs- All tests 24 hr 12/23/18 12/23/18 12/23/18 02:33 03:33 03:33 WBC 5.9 RBC 4.07 L Hgb 10.7 L Hct 33.4 L MCV 82 MCH 26.3 L MCHC 32.1 RDW 20.3 H Plt Count 71 L Seg Neutrophils % 76.8 Lymphocytes % 9.3 L Monocytes % 10.1 Eosinophils % 3.4 Basophils % 0.4 Absolute Neutrophils 4.5 Absolute Lymphocytes 0.5 Absolute Monocytes 0.6 Absolute Eosinophils 0.2 Absolute Basophils 0.0 Carbonic Acid HCO3/H2CO3 Ratio ABG pH ABG pCO2 ABG pO2 ABG HCO3 ABG Total CO2 ABG O2 Saturation ABG Base Excess FiO2 Sodium 140.7 Potassium 3.3 L Chloride 111 H Carbon Dioxide 25 Anion Gap 5 BUN 31 H Creatinine 1.37 H Est GFR ( Amer) > 60 Est GFR (Non-Af Amer) 49 L Glucose 125 H POC Glucose 124 H Calcium 7.7 L Magnesium 1.8 Total Bilirubin 0.7 Direct Bilirubin 0.4 Neonat Total Bilirubin Not Reportable Neonat Direct Bilirubin Not Reportable Neonat Indirect Bili Not Reportable AST 23 ALT 19 L Alkaline Phosphatase 68 Troponin I NT-Pro-B Natriuret Pep Total Protein 4.5 L Albumin 2.2 L 12/23/18 12/23/18 12/23/18 03:33 06:09 06:50 WBC RBC Hgb Hct MCV MCH MCHC RDW Plt Count Seg Neutrophils % Lymphocytes % Monocytes % Eosinophils % Basophils % Absolute Neutrophils Absolute Lymphocytes Absolute Monocytes Absolute Eosinophils Absolute Basophils Carbonic Acid 1.23 HCO3/H2CO3 Ratio 20:1 ABG pH 7.42 ABG pCO2 40.8 ABG pO2 86.6 ABG HCO3 25.7 H ABG Total CO2 26.9 ABG O2 Saturation 96.7 ABG Base Excess 1.1 FiO2 35% Sodium Potassium Chloride Carbon Dioxide Anion Gap BUN Creatinine Est GFR ( Amer) Est GFR (Non-Af Amer) Glucose POC Glucose 123 H Calcium Magnesium Total Bilirubin Direct Bilirubin Neonat Total Bilirubin Neonat Direct Bilirubin Neonat Indirect Bili AST ALT Alkaline Phosphatase Troponin I 2.060 NT-Pro-B Natriuret Pep 35085 H Total Protein Albumin 12/23/18 12/23/18 12/23/18 13:47 16:30 19:11 WBC RBC Hgb Hct MCV MCH MCHC RDW Plt Count Seg Neutrophils % Lymphocytes % Monocytes % Eosinophils % Basophils % Absolute Neutrophils Absolute Lymphocytes Absolute Monocytes Absolute Eosinophils Absolute Basophils Carbonic Acid HCO3/H2CO3 Ratio ABG pH ABG pCO2 ABG pO2 ABG HCO3 ABG Total CO2 ABG O2 Saturation ABG Base Excess FiO2 Sodium Potassium 4.0 Chloride Carbon Dioxide Anion Gap BUN Creatinine Est GFR ( Amer) Est GFR (Non-Af Amer) Glucose POC Glucose 139 H 129 H Calcium Magnesium Total Bilirubin Direct Bilirubin Neonat Total Bilirubin Neonat Direct Bilirubin Neonat Indirect Bili AST ALT Alkaline Phosphatase Troponin I NT-Pro-B Natriuret Pep Total Protein Albumin Chest X-Ray 12/18/18 22:32 IMPRESSION: Possible developing pneumonia. Chest X-Ray 12/19/18 00:22 IMPRESSION: Satisfactory positioning of the endotracheal and nasogastric tubes. Otherwise, no significant change compared to the prior exam. copyright 2011 [employer]- All Rights Reserved Chest X-Ray 12/19/18 06:00 IMPRESSION: Tubes and lines in good positioning. Minimal residual interstitial edema Minimal retrocardiac airspace disease Chest X-Ray 12/20/18 02:35 IMPRESSION: Mild mixed interstitial and airspace opacity. Small patchy opacity-effusion of the left lower hemithorax. Interval worsening. Chest X-Ray 12/21/18 06:00 IMPRESSION: Moderate bilateral lower hemithorax opacity-effusion. Interval worsening. Chest X-Ray 12/22/18 06:00 IMPRESSION: No significant change. Chest X-Ray 12/23/18 00:00 IMPRESSION: No significant change. KUB X-Ray 12/23/18 00:00 IMPRESSION: Nasogastric tube tip in the stomach. IMPRESSION/RECOMMENDATION: 1. Atrial fibrillation with rapid ventricular response: Most likely this is recurrence in the patient with a history of paroxysmal atrial fibrillation. This is resolved. The patient is in atrial and ventricular paced rhythm. We will stop the patient's amiodarone infusion and start the patient on amiodarone 400 mg by the NG tube every 12 hours. Will check liver function tests and thyroid function tests. 2. Acute respiratory failure: Secondary to pneumonia and possibly congestive heart failure. Continue ventilator support. And antibiotics. 3.. Acute on chronic systolic heart failure: At present seems to be compensated. 4. Left perihilar and left lower lobe pneumonia: Continue antibiotics. 5. 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 If blood pressure permits then would continue the patient on Entresto. 6. Coronary artery disease: History of prior [place], and history of coronary artery bypass graft surgery. 7. History of hypertension: Blood pressure at present is low. We will continue closely observing the patient blood pressure. 8. Chronic kidney disease stage III: Avoid nephrotoxic drugs. 9. Diabetes mellitus: Continue antidiabetic treatment and serial Accu-Cheks. Medications reviewed medications adjusted/changed. Medical decision making is of high complexity. Management plan discussed with other caregiving providers on the case. 40 minutes spent on this patient with more than 50% of time spent in direct patient care.
[2018-12-24] MEDS: FENTANYL CITRATE INJ/PF 100 MCG/2 ML AMPUL IV PRN ×5 (01:24→20:15)
[2018-12-24 01:32] LABS: ALANINE AMINOTRANSFERASE 22 U/L (21-72); ALBUMIN 2.1 g/dL (3.5-5.0); ALKALINE PHOSPHATASE 65 U/L (38-126); ASPARTATE AMINO TRANSFERASE 23 U/L (17-59); BILIRUBIN,DIRECT 0.4 mg/dL (0.0-0.4); BILIRUBIN,TOTAL 0.7 mg/dL (0.2-1.3); TOTAL PROTEIN 4.3 g/dL (6.3-8.2)
[2018-12-24 03:32] LABS: FREE T3 3.99 pg/mL (2.77-5.27); FREE T4 (FREE THYROXINE) 1.93 ng/dL (0.78-2.19)
[2018-12-24 03:45] LABS: THYROID STIMULATING HORMONE 1.82 uIU/mL (0.47-4.68)
[2018-12-24 04:12] LABS: ABSOLUTE EOSINOPHILS # (AUTO) 0.2 10^3/uL (0.0-0.6); ABSOLUTE LYMPHOCYTES (AUTO) 0.7 10^3/uL (0.5-4.7); ABSOLUTE MONOCYTES (AUTO) 0.7 10^3/uL (0.1-1.4); ABSOLUTE NEUT (AUTO) 5.2 10^3/uL (1.7-8.2); BASOPHILS % (AUTO) 0.5 % (0-2); EOSINOPHILS % (AUTO) 3.2 % (0-6); HEMATOCRIT 36.9 % (37.9-51.0); HEMOGLOBIN 11.8 g/dL (13.5-17.0); LYMPHOCYTES % (AUTO) 9.9 % (13-45); MEAN CORPUSCULAR HGB CONC 31.9 g/dL (32.0-36.0); MEAN CORPUSCULAR VOLUME 81 fl (80-97); MONOCYTES % (AUTO) 10.7 % (3-13); RED BLOOD COUNT 4.53 10^6/uL (4.35-5.55); RED CELL DISTRIBUTION WIDTH 19.8 % (11.5-14.0); SEGMENTED NEUTROPHILS % (AUTO) 75.7 % (42-78); TOTAL CELLS COUNTED % (AUTO) 100 %; WHITE BLOOD COUNT 6.9 10^3/uL (4.0-10.5)
[2018-12-24 04:30] LABS: ARTERIAL BLOOD BASE EXCESS 2.4 mmol/L; ARTERIAL BLOOD HCO3 27.8 mmol/L (20-24); ARTERIAL BLOOD O2 SATURATION 96.8 % (94-98); ARTERIAL BLOOD PCO2 46.4 mmHg (35-45); ARTERIAL BLOOD PO2 89.6 mmHg (80-100); ARTERIAL BLOOD TOTAL CO2 29.3 mmol/L (23-27)
[2018-12-24 04:31] LABS: ARTERIAL BLOOD FIO2 35%
[2018-12-24 04:34] LABS: PLATELET COUNT 83 10^3/uL (150-450)
[2018-12-24 04:41] LABS: ALANINE AMINOTRANSFERASE 24 U/L (21-72); ALBUMIN 2.7 g/dL (3.5-5.0); ALKALINE PHOSPHATASE 78 U/L (38-126); ANION GAP 7 (5-19); ASPARTATE AMINO TRANSFERASE 20 U/L (17-59); BILIRUBIN,DIRECT 0.4 mg/dL (0.0-0.4); BILIRUBIN,TOTAL 0.8 mg/dL (0.2-1.3); BLOOD UREA NITROGEN 33 mg/dL (7-20); CARBON DIOXIDE 28 mmol/L (22-30); CHLORIDE 108 mmol/L (98-107); GLUCOSE 117 mg/dL (75-110); POTASSIUM 3.6 mmol/L (3.6-5.0); SODIUM 142.8 mmol/L (137-145); TOTAL PROTEIN 5.5 g/dL (6.3-8.2)
[2018-12-24] MEDS: CEFEPIME HCL 2 GM in DEXTROSE 5%-WATER 50 ML IV SCH ×2 (05:04→17:06)
[2018-12-24] MEDS: HEPARIN SOD (PORCINE) 5,000 UNIT/ML 1 ML SYRINGE SUBCUT SCH ×3 (05:07→21:13)
[2018-12-24] MEDS: VANCOMYCIN HCL 1,250 MG in DEXTROSE 5%-WATER 250 ML IV SCH (08:15)
--- NOTE | 2018-12-24 08:23 | RADIOLOGY REPORT (SQ) ---
EXAM DESCRIPTION: CHEST SINGLE VIEW COMPLETED DATE/TIME: 12/24/2018 6:03 am REASON FOR STUDY: resp failure COMPARISON: 12/23/2018, 12/22/2018, 12/21/2018, 12/19/2018 EXAM PARAMETERS: NUMBER OF VIEWS: One view. TECHNIQUE: Single frontal radiographic view of the chest acquired. RADIATION DOSE: NA LIMITATIONS: None. FINDINGS: LUNGS AND PLEURA: Trace bilateral pleural effusions. Bibasilar airspace disease is presen t atelectasis versus pneumonia. These findings are stable compared to previous studies. No pneumothorax. MEDIASTINUM AND HILAR STRUCTURES: No masses. Contour normal. HEART AND VASCULAR STRUCTURES: Old sternotomy and CABG. Moderate cardiomegaly. BONES: No acute findings. HARDWARE: Endotracheal tube tip at the clavicular heads, about 8 cm above the maximo. This report wa s called to the ICU to the patient's nurse Iva at the time of dictation. Nasogastric tube tip and side port in the stomach. Unchanged left-sided multi lead pacemaker. OTHER: No other significant finding. IMPRESSION: Endotracheal tube tip at the clavicular heads. Report called to the patient's nurse in ICU. Trace bilateral pleural effusions with bibasilar consolidation unchanged compared to previous studies TECHNICAL DOCUMENTATION: JOB ID: [id number] [employer]- All Rights Reserved Reading location - IP/workstation name: [email or web address]
[2018-12-24] MEDS: AMIODARONE HCL 200 MG TABLET NG SCH ×2 (09:49→17:08)
[2018-12-24] MEDS: ASPIRIN 325 MG TABLET NG SCH (09:49)
[2018-12-24] MEDS: FUROSEMIDE INJ/PF 20 MG/2 ML SDV IV SCH ×2 (09:49→21:20)
--- NOTE | 2018-12-24 10:39 | PDOC PROGRESS REPORT ---
Subjective Progress Note for:: 12/24/18 Subjective:: 88 years old male patient from [facility] with multiple comorbidities including atrial fibrillation, congestive heart failure, IA, hypertension, type 2 diabetes mellitus stage IV CKD and anemia with chief complaint of difficulty breathing and altered mental status. When EMS seen the patient patient found to be in severe respiratory distress with faint pulse for which she was given atropine and placed him on CPAP. His ABG shows hypercapnia with PCO2 of 76. Patient failed trial of BiPAP with ABG showing worsening hypercapnia patient emergently intubated by ER attending. Patient transferred to ICU. His chest x-ray shows multiple patchy bilateral and perihilar and left basilar consolidation which is possible developing pneumonia. Patient has been started on cefepime and vancomycin. This morning his ABG is normalized. His blood work shows hyperkalemia with potassium 5.4, creatinine of 1.76 and BUN of 53. 12/20/2018: Patient remained intubated. His tracheal aspirate culture reported no growth in 24 hours. Patient has been on cefepime and vancomycin. 12/21/2018: Patient still remains intubated. He has been on cefepime and vancomycin for possible healthcare associated pneumonia. His tracheal aspirate is positive for Haemophilus influenza A and the final report is pending. He has been producing adequate urine. Patient is not ready for weaning trial. 12/22/2018: Patient remained intubated patient has an episode of hypotension and A. fib with RVR. His Lasix is on hold and patient has been started on amiodarone infusion by Dr. Glover. 12/23/2018: Patient remained intubated. His labs reviewed and it shows mild hy pokalemia with potassium 3.3 and his function is relatively improving his creatinine was 1.48 yesterday today 1.37. We will continue the current regimen and comanage with Dr. Glover. 06/26/2018-patient is still on mechanical ventilation weaning process was done for 8 hours yesterday which was successful we try to wean him off today if possible. Patient is not on amiodarone drip anymore presently on amiodarone via NG tube heart rate is well controlled 64. No acute events in the last 24 hours. Potassium is 3.6. Creatinine was slightly improved 1.39. The tracheal aspirate culture positive for H influenza presently on azithromycin/cefepime/vancomycin. Blood cultures are negative. Reason For Visit: ACUTE RESPIRATORY FAILURE,ARF,PNEUMONIA Physical Exam Vital Signs: Temp Pulse Resp BP Pulse Ox 97.7 F 60 16 145/68 H 95 12/24/18 08:00 12/24/18 08:00 12/24/18 08:00 12/24/18 08:00 12/24/18 08:40 Intake & Output 12/23/18 12/24/18 12/25/18 06:59 06:59 06:59 Intake Total 620 2415 50 Output Total 1950 3245 75 Balance -1330 -830 -25 Weight 109.2 kg 107.6 kg General appearance: PRESENT: other - Patient is on a minimal dose of Versed on mechanical ventilation with SIMV rate of 14 PEEP of 5 tidal volume of 500 oxygen saturation of 30%. Head exam: PRESENT: atraumatic Eye exam: PRESENT: PERRLA Mouth exam: PRESENT: moist, tongue midline Teeth exam: PRESENT: poor dentation Neck exam: ABSENT: carotid bruit, JVD, lymphadenopathy, thyromegaly Respiratory exam: PRESENT: decreased breath sounds Cardiovascular exam: PRESENT: RRR. ABSENT: diastolic murmur, rubs, systolic murmur GI/Abdominal exam: PRESENT: normal bowel sounds, soft. ABSENT: distended, guarding, mass, organolmegaly, rebound, tenderness Rectal exam: PRESENT: deferred Extremities exam: PRESENT: full ROM. ABSENT: calf tenderness, clubbing, pedal edema Neurological exam: PRESENT: other - Patient is still intubated under sedation. Unable to do the neuro exam. Results Laboratory Results: 12/24/18 04:02 12/24/18 04:02 12/23/18 12/23/18 12/23/18 16:30 16:30 16:30 WBC RBC Hgb Hct MCV MCH MCHC RDW Plt Count Seg Neutrophils % Lymphocytes % Monocytes % Eosinophils % Basophils % Absolute Neutrophils Absolute Lymphocytes Absolute Monocytes Absolute Eosinophils Absolute Basophils Carbonic Acid HCO3/H2CO3 Ratio ABG pH ABG pCO2 ABG pO2 ABG HCO3 ABG O2 Saturation ABG Base Excess FiO2 Sodium Potassium 4.0 Chloride Carbon Dioxide Anion Gap BUN Creatinine Est GFR ( Amer) Est GFR (Non-Af Amer) Glucose Calcium Magnesium Total Bilirubin 0.7 AST 23 ALT 22 Alkaline Phosphatase 65 Total Protein 4.3 L Albumin 2.1 L TSH 1.82 Free T4 1.93 Free T3 pg/mL 3.99 12/24/18 12/24/18 12/24/18 03:57 04:02 04:02 WBC 6.9 RBC 4.53 Hgb 11.8 L Hct 36.9 L MCV 81 MCH 26.0 L MCHC 31.9 L RDW 19.8 H Plt Count 83 L Seg Neutrophils % 75.7 Lymphocytes % 9.9 L Monocytes % 10.7 Eosinophils % 3.2 Basophils % 0.5 Absolute Neutrophils 5.2 Absolute Lymphocytes 0.7 Absolute Monocytes 0.7 Absolute Eosinophils 0.2 Absolute Basophils 0.0 Carbonic Acid 1.40 H HCO3/H2CO3 Ratio 19:1 ABG pH 7.40 ABG pCO2 46.4 H ABG pO2 89.6 ABG HCO3 27.8 H ABG O2 Saturation 96.8 ABG Base Excess 2.4 FiO2 35% Sodium 142.8 Potassium 3.6 Chloride 108 H Carbon Dioxide 28 Anion Gap 7 BUN 33 H Creatinine 1.39 H Est GFR ( Amer) 59 L Est GFR (Non-Af Amer) 48 L Glucose 117 H Calcium 8.0 L Magnesium 1.9 Total Bilirubin 0.8 AST 20 ALT 24 Alkaline Phosphatase 78 Total Protein 5.5 L Albumin 2.7 L TSH Free T4 Free T3 pg/mL 12/19/18 09:05 Blood Blood Culture - Final NO GROWTH IN 5 DAYS 12/19/18 08:40 Blood Blood Culture - Final NO GROWTH IN 5 DAYS 12/18/18 12/19/18 12/19/18 22:35 01:10 12:04 Creatine Kinase < 20 L CK-MB (CK-2) Troponin I 0.183 0.181 NT-Pro-B Natriuret Pep 12/19/18 12/19/18 12/19/18 12:04 17:42 17:42 Creatine Kinase < 20 L CK-MB (CK-2) 0.84 0.59 Troponin I 0.107 0.095 NT-Pro-B Natriuret Pep 12/19/18 12/19/18 12/23/18 23:26 23:26 03:33 Creatine Kinase < 20 L CK-MB (CK-2) 0.67 Troponin I 0.093 2.060 NT-Pro-B Natriuret Pep [id number] H Impressions: KUB X-Ray 12/23/18 00:00 IMPRESSION: Nasogastric tube tip in the stomach. Chest X-Ray 12/24/18 06:00 IMPRESSION: Endotracheal tube tip at the clavicular heads. Report called to ann altamirano patient's nurse in ICU. 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 Patient is not in fluid overload. Well compensated at this time. (2) Atrial fibrillation with RVR Is this a current diagnosis for this admission?: Yes Plan: Patient has been on amiodarone. 06/26/2018-patient came in with A. fib with RVR initially on amiodarone drip presently receiving amiodarone via NG tube. Heart rate is relatively controlled 64. Plan is to continue the present management. Likely has a paroxysmal atrial fibrillation. (3) Acute hypercapnic respiratory failure Is this a current diagnosis for this admission?: Yes Plan: Patient is on mechanical ventilator. 12/24/2018-patient admitted with acute hypercapnic respiratory failure most likely secondary to underlying pneumonia and acute on chronic systolic heart failure. Patient is presently intubated on IV antibiotic therapy plan to extubate him today. (4) Pneumonia Is this a current diagnosis for this admission?: Yes Plan: Bilateral infiltrate, empiric antibiotics, follow-up CBC and blood culture 12/24/2018-patient came in with healthcare associated pneumonia tracheal aspirate positive for H influenza presently on azithromycin, time and vancomycin. Afebrile. WBC count is 6.9. Plan is to continue the present management. (5) Chronic kidney disease, stage III (moderate) Is this a current diagnosis for this admission?: Yes Plan: 12/24/2018-patient's creatinine is 1.39 patient has a chronic kidney disease his baseline creatinine is around 1.4. (6) Hyperkalemia Is this a current diagnosis for this admission?: Yes Plan: Has resolved 12/24/2018-patient serum potassium today is 3.6 hyperkalemia is resolved. - Time Time Spent with patient: 25-34 minutes Medications reviewed and adjusted accordingly: Yes Anticipated discharge: SNF
[2018-12-24] MEDS: AZITHROMYCIN 500 MG in DEXTROSE 5%-WATER 250 ML IV SCH (11:37)
[2018-12-24] MEDS: MIDAZOLAM HCL 50 MG/100 ML RTUINJ IV PRN (14:19)
--- NOTE | 2018-12-24 22:03 | Progress Note ---
Provider Note Provider Note: CARDIOLOGY PROGRESS NOTE by Dr. Kourtney Glover on 12/24/2018. SUBJECTIVE: The patient is intubated and sedated. He remains in atrial and ventricular paced rhythm. There is no recurrence of atrial fibrillation. There is no ventricular arrhythmia seen. PHYSICAL EXAMINATION: The patient is mildly obese. Appears to be chronically ill. He is intubated and sedated. Selected Entries 12/24/18 18:00 Temperature 97.7 F Heart Rate ( 66 Monitors) Respiratory 18 Rate Blood Pressure 124/71 [Left Upper Arm ] Blood Pressure 88 Mean [Left Upper Arm] O2 Sat by Pulse 96 Oximetry Oxygen Delivery Mechanical Method ( Ventilator includes room air) Fraction of 35 Inspired Oxygen (FIO2) HEAD: Is atraumatic normocephalic. EYES: Pupils equal round regular reactive to light. ENT: Is negative. NECK: Is supple. There is no JVD. Carotids are equal there is no bruits. Trachea central. LUNGS: Shows dry crackles the left lower lobe and left middle lobe. HEART: S1-S2 is heard. There is no S3 gallop there is no S4 gallop. S1 is of normal intensity. Systolic murmur left sternal border and the apex. There is no rub. ABDOMEN: Soft. There is no hepatosplenomegaly. Bowel sounds are well heard. EXTREMITIES: Femorals are diminished. Leg pulses are diminished. There is no pedal edema. There is no DVT or cellulitis. Labs- All tests 24 hr 12/23/18 12/23/18 12/24/18 16:30 16:30 00:42 WBC RBC Hgb Hct MCV MCH MCHC RDW Plt Count Seg Neutrophils % Lymphocytes % Monocytes % Eosinophils % Basophils % Absolute Neutrophils Absolute Lymphocytes Absolute Monocytes Absolute Eosinophils Absolute Basophils Carbonic Acid HCO3/H2CO3 Ratio ABG pH ABG pCO2 ABG pO2 ABG HCO3 ABG Total CO2 ABG O2 Saturation ABG Base Excess FiO2 Sodium Potassium Chloride Carbon Dioxide Anion Gap BUN Creatinine Est GFR ( Amer) Est GFR (Non-Af Amer) Glucose POC Glucose 136 H Calcium Magnesium Total Bilirubin 0.7 Direct Bilirubin 0.4 Neonat Total Bilirubin Not Reportable Neonat Direct Bilirubin Not Reportable Neonat Indirect Bili Not Reportable AST 23 ALT 22 Alkaline Phosphatase 65 Total Protein 4.3 L Albumin 2.1 L TSH 1.82 Free T4 1.93 Free T3 pg/mL 3.99 12/24/18 12/24/18 12/24/18 03:57 04:02 04:02 WBC 6.9 RBC 4.53 Hgb 11.8 L Hct 36.9 L MCV 81 MCH 26.0 L MCHC 31.9 L RDW 19.8 H Plt Count 83 L Seg Neutrophils % 75.7 Lymphocytes % 9.9 L Monocytes % 10.7 Eosinophils % 3.2 Basophils % 0.5 Absolute Neutrophils 5.2 Absolute Lymphocytes 0.7 Absolute Monocytes 0.7 Absolute Eosinophils 0.2 Absolute Basophils 0.0 Carbonic Acid 1.40 H HCO3/H2CO3 Ratio 19:1 ABG pH 7.40 ABG pCO2 46.4 H ABG pO2 89.6 ABG HCO3 27.8 H ABG Total CO2 29.3 H ABG O2 Saturation 96.8 ABG Base Excess 2.4 FiO2 35% Sodium 142.8 Potassium 3.6 Chloride 108 H Carbon Dioxide 28 Anion Gap 7 BUN 33 H Creatinine 1.39 H Est GFR ( Amer) 59 L Est GFR (Non-Af Amer) 48 L Glucose 117 H POC Glucose Calcium 8.0 L Magnesium 1.9 Total Bilirubin 0.8 Direct Bilirubin 0.4 Neonat Total Bilirubin Not Reportable Neonat Direct Bilirubin Not Reportable Neonat Indirect Bili Not Reportable AST 20 ALT 24 Alkaline Phosphatase 78 Total Protein 5.5 L Albumin 2.7 L TSH Free T4 Free T3 pg/mL 12/24/18 12/24/18 12/24/18 05:16 11:47 17:14 WBC RBC Hgb Hct MCV MCH MCHC RDW Plt Count Seg Neutrophils % Lymphocytes % Monocytes % Eosinophils % Basophils % Absolute Neutrophils Absolute Lymphocytes Absolute Monocytes Absolute Eosinophils Absolute Basophils Carbonic Acid HCO3/H2CO3 Ratio ABG pH ABG pCO2 ABG pO2 ABG HCO3 ABG Total CO2 ABG O2 Saturation ABG Base Excess FiO2 Sodium Potassium Chloride Carbon Dioxide Anion Gap BUN Creatinine Est GFR ( Amer) Est GFR (Non-Af Amer) Glucose POC Glucose 112 H 133 H 113 H Calcium Magnesium Total Bilirubin Direct Bilirubin Neonat Total Bilirubin Neonat Direct Bilirubin Neonat Indirect Bili AST ALT Alkaline Phosphatase Total Protein Albumin TSH Free T4 Free T3 pg/mL Chest X-Ray 12/18/18 22:32 IMPRESSION: Possible developing pneumonia. Chest X-Ray 12/19/18 00:22 IMPRESSION: Satisfactory positioning of the endotracheal and nasogastric tubes. Otherwise, no significant change compared to the prior exam. copyright 2010 [employer]- All Rights Reserved Chest X-Ray 12/19/18 06:00 IMPRESSION: Tubes and lines in good positioning. Minimal residual interstitial edema Minimal retrocardiac airspace disease Chest X-Ray 12/20/18 02:35 IMPRESSION: Mild mixed interstitial and airspace opacity. Small patchy opacity-effusion of the left lower hemithorax. Interval worsening. Chest X-Ray 12/21/18 06:00 IMPRESSION: Moderate bilateral lower hemithorax opacity-effusion. Interval worsening. Chest X-Ray 12/22/18 06:00 IMPRESSION: No significant change. Chest X-Ray 12/23/18 00:00 IMPRESSION: No significant change. KUB X-Ray 12/23/18 00:00 IMPRESSION: Nasogastric tube tip in the stomach. Chest X-Ray 12/24/18 06:00 IMPRESSION: Endotracheal tube tip at the clavicular heads. Report called to the patient's nurse in ICU. Trace bilateral pleural effusions with bibasilar consolidation unchanged compared to previous studies IMPRESSION/RECOMMENDATION: 1. Atrial fibrillation with rapid ventricular response: Most likely this is recurrence in the patient with a history of paroxysmal atrial fibrillation. This is resolved. The patient is in atrial and ventricular paced rhythm. We will decrease the patient's amiodarone to 200 mg by the NG tube every 12 hours for about a week, and then decrease it to 200 mg once daily. Would strongly recommend discussions with the family regarding chronic anticoagulation therapy. 2. Acute respiratory failure: Secondary to pneumonia and possibly congestive heart failure. Continue ventilator support. And antibiotics. 3.. Acute on chronic systolic heart failure: At present seems to be compensated. 4. Left perihilar and left lower lobe pneumonia: Continue antibiotics. 5. 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 If blood pressure permits then would continue the patient on Entresto. 6. Coronary artery disease: History of prior MO, and history of coronary artery bypass graft surgery. 7. History of hypertension: Blood pressure at present is low. We will continue closely observing the patient blood pressure. 8. Chronic kidney disease stage III: Avoid nephrotoxic drugs. 9. Diabetes mellitus: Continue antidiabetic treatment and serial Accu-Cheks. reviewed medications adjusted/changed. Medical decision making is of moderate complexity. Management plan discussed with other caregiving providers on the case. 40 minutes spent on this patient with more than 50% of time spent in direct patient care. Cardiac status is stable. Will sign off, as discussed with the hospitalist. Please contact me if there should be any recurrent cardiac problems
[2018-12-25] MEDS: FENTANYL CITRATE INJ/PF 100 MCG/2 ML AMPUL IV PRN ×2 (00:28→05:11)
[2018-12-25 03:47] LABS: ARTERIAL BLOOD H2CO3 1.35 mmol/L (1.05-1.35); ARTERIAL BLOOD HCO3 28.9 mmol/L (20-24); ARTERIAL BLOOD O2 SATURATION 95.5 % (94-98); ARTERIAL BLOOD PCO2 44.7 mmHg (35-45); ARTERIAL BLOOD PH 7.43 (7.35-7.45); ARTERIAL BLOOD PO2 76.4 mmHg (80-100); ARTERIAL BLOOD TOTAL CO2 30.3 mmol/L (23-27)
[2018-12-25 03:57] LABS: ARTERIAL BLOOD FIO2 30%
[2018-12-25 04:27] LABS: ABSOLUTE EOSINOPHILS # (AUTO) 0.3 10^3/uL (0.0-0.6); ABSOLUTE LYMPHOCYTES (AUTO) 0.6 10^3/uL (0.5-4.7); ABSOLUTE MONOCYTES (AUTO) 0.8 10^3/uL (0.1-1.4); ABSOLUTE NEUT (AUTO) 5.3 10^3/uL (1.7-8.2); BASOPHILS % (AUTO) 0.6 % (0-2); EOSINOPHILS % (AUTO) 3.8 % (0-6); HEMATOCRIT 36.6 % (37.9-51.0); HEMOGLOBIN 11.7 g/dL (13.5-17.0); LYMPHOCYTES % (AUTO) 8.8 % (13-45); MEAN CORPUSCULAR HEMOGLOBIN 25.8 pg (27.0-33.4); MEAN CORPUSCULAR HGB CONC 32.1 g/dL (32.0-36.0); MEAN CORPUSCULAR VOLUME 80 fl (80-97); MONOCYTES % (AUTO) 11.5 % (3-13); RED BLOOD COUNT 4.55 10^6/uL (4.35-5.55); RED CELL DISTRIBUTION WIDTH 19.9 % (11.5-14.0); SEGMENTED NEUTROPHILS % (AUTO) 75.3 % (42-78); TOTAL CELLS COUNTED % (AUTO) 100 %; WHITE BLOOD COUNT 7.1 10^3/uL (4.0-10.5)
[2018-12-25 04:42] LABS: PLATELET COUNT 88 10^3/uL (150-450)
[2018-12-25 04:43] LABS: ANION GAP 6 (5-19); BLOOD UREA NITROGEN 32 mg/dL (7-20); CALCIUM 8.6 mg/dL (8.4-10.2); CARBON DIOXIDE 28 mmol/L (22-30); CHLORIDE 107 mmol/L (98-107); GLUCOSE 121 mg/dL (75-110); POTASSIUM 3.4 mmol/L (3.6-5.0); SODIUM 140.6 mmol/L (137-145)
[2018-12-25] MEDS: HEPARIN SOD (PORCINE) 5,000 UNIT/ML 1 ML SYRINGE SUBCUT SCH ×3 (05:07→21:28)
[2018-12-25] MEDS: CEFEPIME HCL 2 GM in DEXTROSE 5%-WATER 50 ML IV SCH (05:11)
[2018-12-25] MEDS ORDERED: POTASSIUM CHLORIDE 20 MEQ PACKET NG ONE (06:59)
--- NOTE | 2018-12-25 08:29 | RADIOLOGY REPORT (SQ) ---
EXAM DESCRIPTION: CHEST SINGLE VIEW COMPLETED DATE/TIME: 12/25/2018 6:16 am REASON FOR STUDY: resp failure COMPARISON: 12/24/2018 EXAM PARAMETERS: NUMBER OF VIEWS: One view. TECHNIQUE: Single frontal radiographic view of the chest acquired. RADIATION DOSE: NA LIMITATIONS: None. FINDINGS: LUNGS AND PLEURA: Persistent bibasilar opacities with small bilateral pleural effusions, n ot significantly changed from prior. No pneumothorax. MEDIASTINUM AND HILAR STRUCTURES: No masses. Contour normal. HEART AND VASCULAR STRUCTURES: Enlarged cardiac silhouette, stable. Evidence of prior CABG and media n sternotomy. BONES: No acute findings. Median sternotomy changes. HARDWARE: Left-sided cardiac pacer with leads overlying right atrium and right ventricle. CABG hardw are. Endotracheal tube tip overlies midthoracic trachea, mildly advanced from prior. Enteric tube t ip below diaphragm but excluded by collimation. OTHER: No other significant finding. IMPRESSION: 1. Stable chest with small effusions and bibasilar opacities. 2. Support lines and tubes as above. TECHNICAL DOCUMENTATION: JOB ID: [id number] [employer]- All Rights Reserved Reading location - IP/workstation name: [email or web address]
--- NOTE | 2018-12-25 08:35 | PDOC PROGRESS REPORT ---
Subjective Progress Note for:: 12/25/18 Subjective:: 88 years old male patient from [facility] with multiple comorbidities including atrial fibrillation, congestive heart failure, [place], hypertension, type 2 diabetes mellitus stage IV CKD and anemia with chief complaint of difficulty breathing and altered mental status. When EMS seen the patient patient found to be in severe respiratory distress with faint pulse for which she was given atropine and placed him on CPAP. His ABG shows hypercapnia with PCO2 of 76. Patient failed trial of BiPAP with ABG showing worsening hypercapnia patient emergently intubated by ER attending. Patient transferred to ICU. His chest x-ray shows multiple patchy bilateral and perihilar and left basilar consolidation which is possible developing pneumonia. Patient has been started on cefepime and vancomycin. This morning his ABG is normalized. His blood work shows hyperkalemia with potassium 5.4, creatinine of 1.76 and BUN of 53. 12/20/2018: Patient remained intubated. His tracheal aspirate culture reported no growth in 24 hours. Patient has been on cefepime and vancomycin. 12/21/2018: Patient still remains intubated. He has been on cefepime and vancomycin for possible healthcare associated pneumonia. His tracheal aspirate is positive for Haemophilus influenza A and the final report is pending. He has been producing adequate urine. Patient is not ready for weaning trial. 12/22/2018: Patient remained intubated patient has an episode of hypotension and A. fib with RVR. His Lasix is on hold and patient has been started on amiodarone infusion by Dr. Glover. 12/23/2018: Patient remained intubated. His labs reviewed and it shows mild hy pokalemia with potassium 3.3 and his function is relatively improving his creatinine was 1.48 yesterday today 1.37. We will continue the current regimen and comanage with Dr. Glover. 12/24/2018-patient is still on mechanical ventilation weaning process was done for 8 hours yesterday which was successful we try to wean him off today if possible. Patient is not on amiodarone drip anymore presently on amiodarone via NG tube heart rate is well controlled 64. No acute events in the last 24 hours. Potassium is 3.6. Creatinine was slightly improved 1.39. The tracheal aspirate culture positive for H influenza presently on azithromycin/cefepime/vancomycin. Blood cultures are negative. 12/25/[id number]-lpwi-old male with multiple comorbidities admitted for atrial fibrillation with RVR and acute respiratory failure with hypoxia due to pneumonia. Heart rate is well controlled in the 60s he is on amiodarone 200 mg p.o. twice daily. Potassium is 3.4 which is going to be supplemented. No acute events in the last 24 hours afebrile. Unable to extubate the patient yesterday. Today we are going to start the weaning process again. Creatinine was improved to 1.32. Presently on 30% oxygen on SIMV with tidal volume of 500. pt is off sedation from 5 AM. Reason For Visit: ACUTE RESPIRATORY FAILURE,ARF,PNEUMONIA Physical Exam Vital Signs: Temp Pulse Resp BP Pulse Ox 98.2 F 60 14 122/62 98 12/25/18 08:00 12/25/18 08:00 12/25/18 08:00 12/25/18 05:51 12/25/18 08:00 Intake & Output 12/24/18 12/25/18 12/26/18 06:59 06:59 06:59 Intake Total 2415 736 Output Total 3245 2450 100 Balance -830 -1714 -100 Weight 107.6 kg 106.7 kg General appearance: PRESENT: no acute distress, other - Patient is under mechanical ventilation and propofol was discontinued this morning. Head exam: PRESENT: atraumatic Eye exam: PRESENT: PERRLA Mouth exam: PRESENT: moist, tongue midline Teeth exam: PRESENT: poor dentation Neck exam: ABSENT: carotid bruit, JVD, lymphadenopathy, thyromegaly Respiratory exam: PRESENT: crackles, decreased breath sounds Cardiovascular exam: PRESENT: bradycardia GI/Abdominal exam: PRESENT: normal bowel sounds, soft. ABSENT: distended, guarding, mass, organolmegaly, rebound, tenderness Rectal exam: PRESENT: deferred Gentrourinary exam: PRESENT: indwelling catheter Neurological exam: PRESENT: other - Patient is waking up moving his arms is off the sedation from this morning. Psychiatric exam: PRESENT: other - Unable to do psych evaluation because propofol was discontinued 2 hours ago I think he is still under sedation. Results Laboratory Results: 12/25/18 04:06 12/25/18 04:06 12/25/18 12/25/18 12/25/18 03:35 04:06 04:06 WBC 7.1 RBC 4.55 Hgb 11.7 L Hct 36.6 L MCV 80 MCH 25.8 L MCHC 32.1 RDW 19.9 H Plt Count 88 L Seg Neutrophils % 75.3 Lymphocytes % 8.8 L Monocytes % 11.5 Eosinophils % 3.8 Basophils % 0.6 Absolute Neutrophils 5.3 Absolute Lymphocytes 0.6 Absolute Monocytes 0.8 Absolute Eosinophils 0.3 Absolute Basophils 0.0 Carbonic Acid 1.35 HCO3/H2CO3 Ratio 21:1 ABG pH 7.43 ABG pCO2 44.7 ABG pO2 76.4 L ABG HCO3 28.9 H ABG O2 Saturation 95.5 ABG Base Excess 4.0 FiO2 30% Sodium 140.6 Potassium 3.4 L Chloride 107 Carbon Dioxide 28 Anion Gap 6 BUN 32 H Creatinine 1.32 H Est GFR ( Amer) > 60 Est GFR (Non-Af Amer) 51 L Glucose 121 H Calcium 8.6 Magnesium 1.9 12/19/18 09:05 Blood Blood Culture - Final NO GROWTH IN 5 DAYS 12/19/18 08:40 Blood Blood Culture - Final NO GROWTH IN 5 DAYS 12/18/18 12/19/18 12/19/18 22:35 01:10 12:04 Creatine Kinase < 20 L CK-MB (CK-2) Troponin I 0.183 0.181 NT-Pro-B Natriuret Pep 12/19/18 12/19/18 12/19/18 12:04 17:42 17:42 Creatine Kinase < 20 L CK-MB (CK-2) 0.84 0.59 Troponin I 0.107 0.095 NT-Pro-B Natriuret Pep 12/19/18 12/19/18 12/23/18 23:26 23:26 03:33 Creatine Kinase < 20 L CK-MB (CK-2) 0.67 Troponin I 0.093 2.060 NT-Pro-B Natriuret Pep [id number] H Impressions: KUB X-Ray 12/23/18 00:00 IMPRESSION: Nasogastric tube tip in the stomach. 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 Patient is not in fluid overload. Well compensated at this time. 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 Patient is on IV Lasix 20 mg every 12 hours plan is to increase the Lasix to 40 every 12 and I will give albumin. Urinary output is 2.4 L yesterday with a negative fluid balance of 1700 mL. (2) Atrial fibrillation with RVR Is this a current diagnosis for this admission?: Yes Plan: Patient has been on amiodarone. 12/24/2018-patient came in with A. fib with RVR initially on amiodarone drip presently receiving amiodarone via NG tube. Heart rate is relatively controlled 64. Plan is to continue the present management. Likely has a paroxysmal atrial fibrillation. 12/25/2018-patient admitted with A. fib with RVR initially amiodarone drip now he is on amiodarone 200 mg p.o. twice daily he is also on Coreg at home which was restarted heart rate is 60 in sinus rhythm. (3) Acute hypercapnic respiratory failure Is this a current diagnosis for this admission?: Yes Plan: Patient is on mechanical ventilator. 12/24/2018-patient admitted with acute hypercapnic respiratory failure most likely secondary to underlying pneumonia and acute on chronic systolic heart failure. Patient is presently intubated on IV antibiotic therapy plan to extubate him today. 12/25/2018-patient admitted with acute respiratory failure with hypoxia and hypercapnia we will try to wean him off today. He is off the Versed drip. ABG this morning pH is 7.43 PCO2 44 PO2 76 bicarb is 29 oxygen saturation is 95% on 30% oxygen. Chest x-ray more opinion may have right-sided pneumonia he is getting IV cefepime azithromycin and vancomycin plan is to discontinue cephapirin from today. Wound culture came back skin lola. Afebrile for the last 72 hours. tracheal aspirate came back positive for H. influenzae. (4) Pneumonia Is this a current diagnosis for this admission?: Yes Plan: Bilateral infiltrate, empiric antibiotics, follow-up CBC and blood culture 12/24/2018-patient came in with healthcare associated pneumonia tracheal aspirate positive for H influenza presently on azithromycin, cefepime. vancomycin. Afebrile. WBC count is 6.9. Plan is to continue the present management. 12/25/2018-patient came in with healthcare associated pneumonia, tracheal aspirate positive for H influenza on azithromycin ,cefepime and vancomycin (5) Chronic kidney disease, stage III (moderate) Is this a current diagnosis for this admission?: Yes Plan: 12/24/2018-patient's creatinine is 1.39 patient has a chronic kidney disease his baseline creatinine is around 1.4. 12/25/2018-serum creatinine is 1.32 baseline creatinine is 1.4. Urinary output is 2.4 L. Continue to closely monitor his creatinine. (6) Hyperkalemia Is this a current diagnosis for this admission?: Yes Plan: Has resolved 12/24/2018-patient serum potassium today is 3.6 hyperkalemia is resolved. 12/25/2018-patient serum potassium is 3.4 today which is going to be supplemented. (7) Thrombocytopenia Is this a current diagnosis for this admission?: Yes Plan: Chronic at baseline. Follow-up CBC 12/25/2018-patient's platelet count is 88,000 gradually improving. Because of thrombocytopenia is unknown at this time. (8) HTN (hypertension) Is this a current diagnosis for this admission?: No Plan: 12/25/2018-patient blood pressure today is 22/65. Plan is to discontinue IV fluids and increase the Lasix to 40 twice a day and plan to give albumin. To closely monitor his blood pressures. 3+ edema is noted in the lower extremities. - Time Time Spent with patient: 25-34 minutes Medications reviewed and adjusted accordingly: Yes Anticipated discharge: SNF
[2018-12-25] MEDS: VANCOMYCIN HCL 1,250 MG in DEXTROSE 5%-WATER 250 ML IV SCH (08:39)
[2018-12-25] MEDS: FUROSEMIDE INJ/PF 40 MG/4 ML SDV IV SCH ×2 (09:42→18:05)
[2018-12-25] MEDS: AMIODARONE HCL 200 MG TABLET NG SCH (09:42)
[2018-12-25] MEDS: ASPIRIN 325 MG TABLET NG SCH (09:42)
[2018-12-25] MEDS: CARVEDILOL 12.5 MG TABLET NG SCH ×2 (09:42→21:33)
[2018-12-25] MEDS: POTASSIUM CHLORIDE 20 MEQ PACKET NG SCH (09:43)
[2018-12-25] MEDS: ALBUMIN HUMAN 12.5 GM/50 ML RTUINJ IV SCH ×4 (09:46→12:45)
[2018-12-25] MEDS ORDERED: (PENDING PHARMACY ID) (Potassium Chloride [Klor-Con M20] 20 MEQ) PO SCH (10:00)
[2018-12-25] MEDS ORDERED: POTASSIUM CHLORIDE 10 MEQ CAPSULE.ER PO SCH (10:00)
[2018-12-25] MEDS ORDERED: AMIODARONE HCL 200 MG TABLET NG SCH (10:00)
[2018-12-25] MEDS ORDERED: FUROSEMIDE INJ/PF 20 MG/2 ML SDV IV SCH (10:00)
[2018-12-25] MEDS ORDERED: (PENDING PHARMACY ID) (Carvedilol [Coreg 25 Mg Tablet] 12.5 MG) PO SCH (10:00)
[2018-12-25] MEDS: SACUBITRIL/VALSARTAN 97 MG/103 MG TABLET NG SCH ×2 (10:39→21:33)
[2018-12-25] MEDS: AZITHROMYCIN 500 MG in DEXTROSE 5%-WATER 250 ML IV SCH (12:04)
[2018-12-25] MEDS: LORAZEPAM INJ 2 MG/1 ML VIAL IV PRN ×2 (15:43→19:50)
[2018-12-25] MEDS ORDERED: DEXTROSE 40% GEL 15 GM TUBE X 2 PO PRN (18:30)
[2018-12-25] MEDS ORDERED: DEXTROSE 40% GEL 15 GM TUBE PO PRN (18:30)
[2018-12-25] MEDS ORDERED: GLUCAGON,HUMAN RECOMB 1 MG INJ IM PRN (18:30)
[2018-12-25] MEDS ORDERED: DEXTROSE 50%-WATER SYRINGE 12.5 GM/25 ML DOSE IV PRN (18:30)
[2018-12-25] MEDS ORDERED: DEXTROSE 50%-WATER SYRINGE 25 GM/50 ML DOSE IV PRN (18:30)
[2018-12-25] MEDS: INSULIN LISPRO 100 UNIT/ML 3 ML VIAL SUBCUT SCH (18:49)
[2018-12-26] MEDS: LORAZEPAM INJ 2 MG/1 ML VIAL IV PRN (00:39)
[2018-12-26] MEDS: INSULIN LISPRO 100 UNIT/ML 3 ML VIAL SUBCUT SCH ×5 (00:39→23:56)
[2018-12-26 03:41] LABS: ARTERIAL BLOOD BASE EXCESS 4.2 mmol/L; ARTERIAL BLOOD H2CO3 1.27 mmol/L (1.05-1.35); ARTERIAL BLOOD HCO3 28.6 mmol/L (20-24); ARTERIAL BLOOD O2 SATURATION 94.5 % (94-98); ARTERIAL BLOOD PCO2 42.1 mmHg (35-45); ARTERIAL BLOOD PH 7.45 (7.35-7.45); ARTERIAL BLOOD PO2 68.9 mmHg (80-100); ARTERIAL BLOOD TOTAL CO2 29.9 mmol/L (23-27)
[2018-12-26 03:42] LABS: ARTERIAL BLOOD FIO2 30%
[2018-12-26] MEDS: HEPARIN SOD (PORCINE) 5,000 UNIT/ML 1 ML SYRINGE SUBCUT SCH ×3 (05:12→21:19)
[2018-12-26] MEDS: FUROSEMIDE INJ/PF 40 MG/4 ML SDV IV SCH ×2 (05:17→18:23)
--- NOTE | 2018-12-26 08:31 | RADIOLOGY REPORT (SQ) ---
EXAM DESCRIPTION: CHEST SINGLE VIEW COMPLETED DATE/TIME: 12/26/2018 6:30 am REASON FOR STUDY: resp failure COMPARISON: 12/25/2018 NUMBER OF VIEWS: One view. TECHNIQUE: Single frontal radiographic image of the chest acquired. LIMITATIONS: None. FINDINGS: LUNGS AND PLEURA: Stable appearance. MEDIASTINUM AND HILAR STRUCTURES: Stable heart size and mediastinal structures. HEART AND VASCULAR STRUCTURES: Stable appearance. SUPPORT DEVICES: Appropriate location without change. BONES: No acute findings. OTHER: No other significant finding. IMPRESSION: STABLE APPEARANCE OF THE CHEST. SUPPORT DEVICES UNCHANGED. TECHNICAL DOCUMENTATION: JOB ID: [id number] [employer]- All Rights Reserved Reading location - IP/workstation name: [email or web address]
--- NOTE | 2018-12-26 08:37 | PDOC PROGRESS REPORT ---
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 When EMS seen the patient patient found to be in severe respiratory distress with faint pulse for which she was given atropine and placed him on CPAP. His ABG shows hypercapnia with PCO2 of 76. Patient failed trial of BiPAP with ABG showing worsening hypercapnia patient emergently intubated by ER attending. Patient transferred to ICU. His chest x-ray shows multiple patchy bilateral and perihilar and left basilar consolidation which is possible developing pneumonia. Patient has been started on cefepime and vancomycin. This morning his ABG is normalized. His blood work shows hyperkalemia with potassium 5.4, creatinine of 1.76 and BUN of 53. 12/20/2018: Patient remained intubated. His tracheal aspirate culture reported no growth in 24 hours. Patient has been on cefepime and vancomycin. 12/21/2018: Patient still remains intubated. He has been on cefepime and vancomycin for possible healthcare associated pneumonia. His tracheal aspirate is positive for Haemophilus influenza A and the final report is pending. He has been producing adequate urine. Patient is not ready for weaning trial. 12/22/2018: Patient remained intubated patient has an episode of hypotension and A. fib with RVR. His Lasix is on hold and patient has been started on amiodarone infusion by Dr. Glover. 12/23/2018: Patient remained intubated. His labs reviewed and it shows mild hy pokalemia with potassium 3.3 and his function is relatively improving his creatinine was 1.48 yesterday today 1.37. We will continue the current regimen and comanage with Dr. Glover. 12/24/2018-patient is still on mechanical ventilation weaning process was done for 8 hours yesterday which was successful we try to wean him off today if possible. Patient is not on amiodarone drip anymore presently on amiodarone via NG tube heart rate is well controlled 64. No acute events in the last 24 hours. Potassium is 3.6. Creatinine was slightly improved 1.39. The tracheal aspirate culture positive for H influenza presently on azithromycin/cefepime/vancomycin. Blood cultures are negative. 12/25/[id number]-eyye-old male with multiple comorbidities admitted for atrial fibrillation with RVR and acute respiratory failure with hypoxia due to pneumonia. Heart rate is well controlled in the 60s he is on amiodarone 200 mg p.o. twice daily. Potassium is 3.4 which is going to be supplemented. No acute events in the last 24 hours afebrile. Unable to extubate the patient yesterday. Today we are going to start the weaning process again. Creatinine was improved to 1.32. Presently on 30% oxygen on SIMV with tidal volume of 500. pt is off sedation from 5 AM. 12/26/[id number]-jmnl-old male with multiple comorbidities admitted with A. fib with RVR he is on presently amiodarone 200 mg p.o. daily the heart rate this morning is 62 well-controlled his Coreg was restarted at 12.5 mg p.o. twice daily. Main concern today is to extubate him he is moving his arms and legs little bit but not opening his eyes not following the commands at daughter was at bedside her name is Katya as per her wishes once he is extubated she does not want to back in she does want a PEG tube she is going to talk to the social work nurse today to get power of commercial attorney she wants him to make a DNR but she is requesting some time for that. No acute events in the last 24 hours. Patient blood pressure is 170/90 and on examination upper and lower extremity edema present. Reason For Visit: ACUTE RESPIRATORY FAILURE,ARF,PNEUMONIA Physical Exam Vital Signs: Temp Pulse Resp BP Pulse Ox 98.6 F 60 19 170/97 H 94 12/26/18 06:00 12/25/18 20:43 12/26/18 06:00 12/26/18 05:42 12/26/18 07:37 Intake & Output 12/25/18 12/26/18 12/27/18 06:59 06:59 06:59 Intake Total 736 700 Output Total 5161 9758 Balance -8974 -8112 Weight 106.7 kg 103.8 kg General appearance: PRESENT: no acute distress, well-developed, other - Patient is off sedation since yesterday spontaneously moving his arms and legs but not opening his eyes and not responding to the commands. Head exam: PRESENT: atraumatic Eye exam: PRESENT: PERRLA Mouth exam: PRESENT: moist, tongue midline Teeth exam: PRESENT: edentulous Neck exam: ABSENT: carotid bruit, JVD, lymphadenopathy, thyromegaly Respiratory exam: PRESENT: decreased breath sounds Cardiovascular exam: PRESENT: other - Patient has a pacemaker defibrillator present. GI/Abdominal exam: PRESENT: normal bowel sounds, soft. ABSENT: distended, g uarding, mass, organolmegaly, rebound, tenderness Rectal exam: PRESENT: deferred Extremities exam: PRESENT: +2 edema Neurological exam: PRESENT: other - Patient is spontaneously moving his arms and legs not opening his eyes not responding to verbal commands. Results Laboratory Results: 12/25/18 12/26/18 10:20 03:35 Carbonic Acid 1.27 HCO3/H2CO3 Ratio 22:1 ABG pH 7.45 ABG pCO2 42.1 ABG pO2 68.9 L ABG HCO3 28.6 H ABG O2 Saturation 94.5 ABG Base Excess 4.2 FiO2 30% Potassium 4.1 12/23/18 01:15 Toe - Right Big Toe Gram Stain - Final 12/18/18 12/19/18 12/19/18 22:35 01:10 12:04 Creatine Kinase < 20 L CK-MB (CK-2) Troponin I 0.183 0.181 NT-Pro-B Natriuret Pep 12/19/18 12/19/18 12/19/18 12:04 17:42 17:42 Creatine Kinase < 20 L CK-MB (CK-2) 0.84 0.59 Troponin I 0.107 0.095 NT-Pro-B Natriuret Pep 12/19/18 12/19/18 12/23/18 23:26 23:26 03:33 Creatine Kinase < 20 L CK-MB (CK-2) 0.67 Troponin I 0.093 2.060 NT-Pro-B Natriuret Pep [id number] H Impressions: KUB X-Ray 12/23/18 00:00 IMPRESSION: Nasogastric tube tip in the stomach. 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 Patient is not in fluid overload. Well compensated at this time. 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 Patient is on IV Lasix 20 mg every 12 hours plan is to increase the Lasix to 40 every 12 and I will give albumin. Urinary output is 2.4 L yesterday with a negative fluid balance of 1700 mL. 12/26/2018-patient is on Lasix 40 mg IV twice a day and he has history of chronic systolic heart failure urinary output is good still have 2+ pedal edema involving the upper and lower extremities presently on Lasix 40 mg every 12 hours he received IV albumin last night. Urinary output is 2.4 L yesterday with negative fluid balance of 1750. To give another albumin supplementation today. (2) Atrial fibrillation with RVR Is this a current diagnosis for this admission?: Yes Plan: Patient has been on amiodarone. 12/24/2018-patient came in with A. fib with RVR initially on amiodarone drip presently receiving amiodarone via NG tube. Heart rate is relatively controlled 64. Plan is to continue the present management. Likely has a paroxysmal atrial fibrillation. 12/25/2018-patient admitted with A. fib with RVR initially amiodarone drip now he is on amiodarone 200 mg p.o. twice daily he is also on Coreg at home which was restarted heart rate is 60 in sinus rhythm. 12/26/2018-patient admitted with A. fib with RVR initially on amiodarone drip presently on amiodarone 200 mg p.o. daily and Coreg 12.5 mg p.o. twice daily heart rate is 60 2E has a pacemaker defibrillator. Heart rate today 62 well- controlled. (3) Acute hypercapnic respiratory failure Is this a current diagnosis for this admission?: Yes Plan: Patient is on mechanical ventilator. 12/24/2018-patient admitted with acute hypercapnic respiratory failure most likely secondary to underlying pneumonia and acute on chronic systolic heart failure. Patient is presently intubated on IV antibiotic therapy plan to extubate him today. 12/25/2018-patient admitted with acute respiratory failure with hypoxia and hypercapnia we will try to wean him off today. He is off the Versed drip. ABG this morning pH is 7.43 PCO2 44 PO2 76 bicarb is 29 oxygen saturation is 95% on 30% oxygen. Chest x-ray more opinion may have right-sided pneumonia he is getting IV cefepime azithromycin and vancomycin plan is to discontinue cephapirin from today. Wound culture came back skin lola. Afebrile for the last 72 hours. tracheal aspirate came back positive for H. influenzae. 12/26/2018-patient admitted with acute respiratory failure with hypoxia and hypercapnia on mechanical ventilation he is ABG this morning pH is 7.45 PCO2 42 PO2 68 bicarb is 28 oxygen saturation is 94% on 30% oxygen. He is off the sedation since yesterday plan to wean him off today. Chest x-ray did not show any acute pathology today. (4) Pneumonia Is this a current diagnosis for this admission?: Yes Plan: Bilateral infiltrate, empiric antibiotics, follow-up CBC and blood culture 12/24/2018-patient came in with healthcare associated pneumonia tracheal aspirate positive for H influenza presently on azithromycin, cefepime. vancomycin. Afebrile. WBC count is 6.9. Plan is to continue the present management. 12/25/2018-patient came in with healthcare associated pneumonia, tracheal aspirate positive for H influenza on azithromycin ,cefepime and vancomycin 12/26/2018-patient admitted with healthcare associated pneumonia, tracheal aspirate positive for H influenza presently is on azithromycin and vancomycin. a Febrile for the last several days. Plan is to complete the antibiotic course. (5) Chronic kidney disease, stage III (moderate) Is this a current diagnosis for this admission?: Yes Plan: 12/24/2018-patient's creatinine is 1.39 patient has a chronic kidney disease his baseline creatinine is around 1.4. 12/25/2018-serum creatinine is 1.32 baseline creatinine is 1.4. Urinary output is 2.4 L. Continue to closely monitor his creatinine. 12/26/2018-patient creatinine yesterday is 0.32 his baseline creatinine is around 1.4 today's labs are pending. (6) Hyperkalemia Is this a current diagnosis for this admission?: Yes (7) Thrombocytopenia Is this a current diagnosis for this admission?: Yes (8) HTN (hypertension) Is this a current diagnosis for this admission?: No Plan: 12/25/2018-patient blood pressure today is 172/65. Plan is to discontinue IV fluids and increase the Lasix to 40 twice a day and plan to give albumin. To closely monitor his blood pressures. 3+ edema is noted in the lower extremities. 12/26/2018-patient blood pressure today is 172/90 presently on Lasix 40 mg IV twice daily, Coreg 12.5 mg twice a day, Entresto. Plan is to continue the present management and is on hydralazine 10 mg every 4 PRN for blood pressure more than 150. - Time Time Spent with patient: 25-34 minutes Medications reviewed and adjusted accordingly: Yes Anticipated discharge: SNF
[2018-12-26 08:46] LABS: ANION GAP 8 (5-19); BLOOD UREA NITROGEN 33 mg/dL (7-20); CALCIUM 8.9 mg/dL (8.4-10.2); CARBON DIOXIDE 29 mmol/L (22-30); CHLORIDE 104 mmol/L (98-107); GLUCOSE 128 mg/dL (75-110); PHOSPHORUS 2.8 mg/dL (2.5-4.5); POTASSIUM 3.4 mmol/L (3.6-5.0); SODIUM 140.8 mmol/L (137-145)
[2018-12-26 08:51] LABS: VANCOMYCIN,TROUGH 24.1 ug/mL (5.0-20.0)
[2018-12-26] MEDS: ALBUMIN HUMAN 12.5 GM/50 ML RTUINJ IV SCH ×4 (10:00→12:49)
[2018-12-26] MEDS: POTASSIUM CHLORIDE 20 MEQ PACKET NG SCH (10:05)
[2018-12-26] MEDS: AMIODARONE HCL 200 MG TABLET NG SCH (10:05)
[2018-12-26] MEDS: ASPIRIN 325 MG TABLET NG SCH (10:06)
[2018-12-26] MEDS: CARVEDILOL 12.5 MG TABLET NG SCH ×2 (10:06→21:39)
[2018-12-26] MEDS: SACUBITRIL/VALSARTAN 97 MG/103 MG TABLET NG SCH ×2 (10:07→21:37)
[2018-12-26 10:45] LABS: HEMOGLOBIN 11.9 g/dL (13.5-17.0); MEAN CORPUSCULAR HEMOGLOBIN 25.9 pg (27.0-33.4); MEAN CORPUSCULAR HGB CONC 32.1 g/dL (32.0-36.0); MEAN CORPUSCULAR VOLUME 81 fl (80-97); RED BLOOD COUNT 4.58 10^6/uL (4.35-5.55); RED CELL DISTRIBUTION WIDTH 19.2 % (11.5-14.0); WHITE BLOOD COUNT 9.5 10^3/uL (4.0-10.5)
[2018-12-26] MEDS ORDERED: POTASSIUM CHLORIDE 20 MEQ PACKET PO ONE (11:00)
[2018-12-26 11:17] LABS: PLATELET COUNT 95 10^3/uL (150-450)
[2018-12-26 11:21] LABS: ABSOLUTE MONOCYTES # (MANUAL) 0.1 10^3/uL (0.1-1.4); BASOPHILS % (MANUAL) 0 % (0-2); EOSINOPHILS % (MANUAL) 1 % (0-6); LYMPHOCYTES % (MANUAL) 0 % (13-45); MONOCYTES % (MANUAL) 1 % (3-13); SEGMENTED NEUTROPHILS % (MAN) 98 % (42-78); TOTAL CELLS COUNTED 100
[2018-12-26 11:28] LABS: ANISOCYTOSIS 2+; BURR CELLS SLIGHT; HYPOCHROMASIA SLIGHT; POIKILOCYTOSIS 1+; TEAR DROP CELLS SLIGHT; TOXIC GRANULATION SLIGHT; TOXIC VACUOLATION PRESENT
[2018-12-26 11:29] LABS: PLATELET COMMENT DECREASED
[2018-12-26] MEDS: AZITHROMYCIN 500 MG in DEXTROSE 5%-WATER 250 ML IV SCH (12:53)
[2018-12-26] MEDS: VANCOMYCIN HCL 750 MG in DEXTROSE 5%-WATER 250 ML IV SCH (13:57)
[2018-12-26] MEDS: VANCOMYCIN HCL 1,250 MG in DEXTROSE 5%-WATER 250 ML IV SCH (20:50)
[2018-12-27 03:57] LABS: ARTERIAL BLOOD BASE EXCESS 9.4 mmol/L; ARTERIAL BLOOD H2CO3 1.32 mmol/L (1.05-1.35); ARTERIAL BLOOD HCO3 33.5 mmol/L (20-24); ARTERIAL BLOOD PCO2 43.9 mmHg (35-45); ARTERIAL BLOOD PO2 60.3 mmHg (80-100); ARTERIAL BLOOD TOTAL CO2 34.9 mmol/L (23-27)
[2018-12-27 03:59] LABS: ARTERIAL BLOOD FIO2 30%
[2018-12-27 04:16] LABS: ANION GAP 9 (5-19); BLOOD UREA NITROGEN 32 mg/dL (7-20); CARBON DIOXIDE 32 mmol/L (22-30); CHLORIDE 101 mmol/L (98-107); GLUCOSE 140 mg/dL (75-110); SODIUM 141.5 mmol/L (137-145)
[2018-12-27 04:20] LABS: POTASSIUM 2.9 mmol/L (3.6-5.0)
[2018-12-27] MEDS: FUROSEMIDE INJ/PF 40 MG/4 ML SDV IV SCH ×2 (05:03→18:40)
[2018-12-27] MEDS: INSULIN LISPRO 100 UNIT/ML 3 ML VIAL SUBCUT SCH ×3 (05:04→18:29)
[2018-12-27] MEDS: HEPARIN SOD (PORCINE) 5,000 UNIT/ML 1 ML SYRINGE SUBCUT SCH ×3 (05:04→21:30)
[2018-12-27] MEDS: POTASSIUM CHLORIDE 20 MEQ PACKET NG SCH ×5 (05:04→18:39)
--- NOTE | 2018-12-27 09:00 | RADIOLOGY REPORT (SQ) ---
EXAM DESCRIPTION: CHEST SINGLE VIEW COMPLETED DATE/TIME: 12/27/2018 6:35 am REASON FOR STUDY: resp failure/chf/crf COMPARISON: 12/26/2018 NUMBER OF VIEWS: One view. TECHNIQUE: Single frontal radiographic image of the chest acquired. LIMITATIONS: None. FINDINGS: LUNGS AND PLEURA: Improved aeration with residual small effusions, left greater than right . No pneumothorax. MEDIASTINUM AND HEART: Stable heart size and mediastinal structures. SUPPORT DEVICES: Appropriate location without change. BONY STRUCTURES: No acute findings. HARDWARE: None. OTHER: No other significant finding. IMPRESSION: Improving CHF. Reading location - IP/workstation name: [email or web address]
[2018-12-27] MEDS: SACUBITRIL/VALSARTAN 97 MG/103 MG TABLET NG SCH ×2 (09:23→21:29)
[2018-12-27] MEDS: CARVEDILOL 12.5 MG TABLET NG SCH ×2 (09:23→21:29)
[2018-12-27] MEDS: ASPIRIN 325 MG TABLET NG SCH (09:23)
[2018-12-27] MEDS: AMIODARONE HCL 200 MG TABLET NG SCH (09:23)
[2018-12-27] MEDS ORDERED: LORAZEPAM INJ 2 MG/1 ML VIAL IV PRN (09:24)
--- NOTE | 2018-12-27 09:35 | PDOC PROGRESS REPORT ---
Subjective Progress Note for:: 12/27/18 Subjective:: 88 years old male patient from retirement with multiple comorbidities including atrial fibrillation, congestive heart failure, LA, hypertension, type 2 diabetes mellitus stage IV CKD and anemia with chief complaint of difficulty breathing and altered mental status. When EMS seen the patient patient found to be in severe respiratory distress with faint pulse for which she was given atropine and placed him on CPAP. His ABG shows hypercapnia with PCO2 of 76. Patient failed trial of BiPAP with ABG showing worsening hypercapnia patient emergently intubated by ER attending. Patient transferred to ICU. His chest x-ray shows multiple patchy bilateral and perihilar and left basilar consolidation which is possible developing pneumonia. Patient has been started on cefepime and vancomycin. This morning his ABG is normalized. His blood work shows hyperkalemia with potassium 5.4, creatinine of 1.76 and BUN of 53. 12/20/2018: Patient remained intubated. His tracheal aspirate culture reported no growth in 24 hours. Patient has been on cefepime and vancomycin. 12/21/2018: Patient still remains intubated. He has been on cefepime and vancomycin for possible healthcare associated pneumonia. His tracheal aspirate is positive for Haemophilus influenza A and the final report is pending. He has been producing adequate urine. Patient is not ready for weaning trial. 12/22/2018: Patient remained intubated patient has an episode of hypotension and A. fib with RVR. His Lasix is on hold and patient has been started on amiodarone infusion by Dr. Glover. 12/23/2018: Patient remained intubated. His labs reviewed and it shows mild hy pokalemia with potassium 3.3 and his function is relatively improving his creatinine was 1.48 yesterday today 1.37. We will continue the current regimen and comanage with Dr. Glover. 12/24/2018-patient is still on mechanical ventilation weaning process was done for 8 hours yesterday which was successful we try to wean him off today if possible. Patient is not on amiodarone drip anymore presently on amiodarone via NG tube heart rate is well controlled 64. No acute events in the last 24 hours. Potassium is 3.6. Creatinine was slightly improved 1.39. The tracheal aspirate culture positive for H influenza presently on azithromycin/cefepime/vancomycin. Blood cultures are negative. 12/25/[id number]-amqb-old male with multiple comorbidities admitted for atrial fibrillation with RVR and acute respiratory failure with hypoxia due to pneumonia. Heart rate is well controlled in the 60s he is on amiodarone 200 mg p.o. twice daily. Potassium is 3.4 which is going to be supplemented. No acute events in the last 24 hours afebrile. Unable to extubate the patient yesterday. Today we are going to start the weaning process again. Creatinine was improved to 1.32. Presently on 30% oxygen on SIMV with tidal volume of 500. pt is off sedation from 5 AM. 12/26/[id number]-zagl-old male with multiple comorbidities admitted with A. fib with RVR he is on presently amiodarone 200 mg p.o. daily the heart rate this morning is 62 well-controlled his Coreg was restarted at 12.5 mg p.o. twice daily. Main concern today is to extubate him he is moving his arms and legs little bit but not opening his eyes not following the commands at daughter was at bedside her name is Katya as per her wishes once he is extubated she does not want to back in she does want a PEG tube she is going to talk to the social media content manager today to get power of attorney general she wants him to make a DNR but she is requesting some time for that. No acute events in the last 24 hours. Patient blood pressure is 170/90 and on examination upper and lower extremity edema present. 12/27/[id number]-mogf-old male admitted for A. fib with RVR rate controlled presently on amiodarone 200 mg p.o. daily and also on Coreg 12.5 mg p.o. twice daily heart rate this morning is 61. Patient is alert awake responding to verbal commands he is still intubated off the sedation for the last 2 days plan to extubate him today. Chest x-ray shows improving CHF. Present on Lasix 40 mg IV twice daily. Daughter was at bedside he is she is happy with the care and she again requested me that he needs to be DNR/DNI and she does not does not want any trach does not want any PEG placement. Reason For Visit: ACUTE RESPIRATORY FAILURE,ARF,PNEUMONIA Physical Exam Vital Signs: Temp Pulse Resp BP Pulse Ox 99.5 F 61 21 H 170/80 H 97 12/27/18 08:00 12/27/18 08:00 12/27/18 08:00 12/27/18 08:00 12/27/18 08:00 Intake & Output 12/26/18 12/27/18 12/28/18 06:59 06:59 06:59 Intake Total 700 668 Output Total 4425 3135 125 [facility] -[id number] -[id number] -125 Weight 103.8 kg 99.4 kg General appearance: PRESENT: no acute distress, cooperative, well-developed Head exam: PRESENT: atraumatic Eye exam: PRESENT: PERRLA Mouth exam: PRESENT: moist, tongue midline Teeth exam: PRESENT: poor dentation Neck exam: ABSENT: carotid bruit, JVD, lymphadenopathy, thyromegaly Respiratory exam: PRESENT: crackles, prolonged expiratory phas Cardiovascular exam: PRESENT: RRR. ABSENT: diastolic murmur, rubs, systolic murmur GI/Abdominal exam: PRESENT: normal bowel sounds, soft. ABSENT: distended, guarding, mass, organolmegaly, rebound, tenderness Rectal exam: PRESENT: deferred Gentrourinary exam: PRESENT: indwelling catheter Neurological exam: PRESENT: alert, awake, oriented to person, oriented to place, oriented to time, oriented to situation, CN II-XII grossly intact. ABSENT: motor sensory deficit Psychiatric exam: PRESENT: agitated Results Laboratory Results: 12/26/18 10:33 12/27/18 03:40 12/26/18 12/27/18 12/27/18 10:33 03:40 03:46 WBC 9.5 RBC 4.58 Hgb 11.9 L Hct 37.0 L MCV 81 MCH 25.9 L MCHC 32.1 RDW 19.2 H Plt Count 95 L Seg Neutrophils % Not Reportable Lymphocytes % Not Reportable Monocytes % Not Reportable Eosinophils % Not Reportable Basophils % Not Reportable Absolute Neutrophils Not Reportable Absolute Lymphocytes Not Reportable Absolute Monocytes Not Reportable Absolute Eosinophils Not Reportable Absolute Basophils Not Reportable Carbonic Acid 1.32 HCO3/H2CO3 Ratio 25:1 ABG pH 7.50 H ABG pCO2 43.9 ABG pO2 60.3 L ABG HCO3 33.5 H ABG O2 Saturation 93.0 L ABG Base Excess 9.4 FiO2 30% Sodium 141.5 Potassium 2.9 L* Chloride 101 Carbon Dioxide 32 H Anion Gap 9 BUN 32 H Creatinine 1.45 H Est GFR ( Amer) 56 L Est GFR (Non-Af Amer) 46 L Glucose 140 H Calcium 9.0 Magnesium 1.9 12/23/18 01:15 Toe - Right Big Toe Gram Stain - Final 12/23/18 01:15 Toe - Right Big Toe Wound Culture - Final Enterococcus Faecalis(Group D) Skin Lola 12/18/18 12/19/18 12/19/18 22:35 01:10 12:04 Creatine Kinase < 20 L CK-MB (CK-2) Troponin I 0.183 0.181 NT-Pro-B Natriuret Pep 12/19/18 12/19/18 12/19/18 12:04 17:42 17:42 Creatine Kinase < 20 L CK-MB (CK-2) 0.84 0.59 Troponin I 0.107 0.095 NT-Pro-B Natriuret Pep 12/19/18 12/19/18 12/23/18 23:26 23:26 03:33 Creatine Kinase < 20 L CK-MB (CK-2) 0.67 Troponin I 0.093 2.060 NT-Pro-B Natriuret Pep 29292 H Impressions: KUB X-Ray 12/23/18 00:00 IMPRESSION: Nasogastric tube tip in the stomach. Chest X-Ray 12/27/18 06:00 IMPRESSION: Improving CHF. 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 Patient is not in fluid overload. Well compensated at this time. 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 Patient is on IV Lasix 20 mg every 12 hours plan is to increase the Lasix to 40 every 12 and I will give albumin. Urinary output is 2.4 L yesterday with a negative fluid balance of 1700 mL. 12/26/2018-patient is on Lasix 40 mg IV twice a day and he has history of chronic systolic heart failure urinary output is good still have 2+ pedal edema involving the upper and lower extremities presently on Lasix 40 mg every 12 hours he received IV albumin last night. Urinary output is 2.4 L yesterday with negative fluid balance of 1750. To give another albumin supplementation today. 12/27/2018-chest x-ray indicates improving pulmonary edema and upper extremity lower extremity swelling is improved also present on Lasix 40 mg IV twice daily urinary output is 3.1 L with a negative fluid balance of 2.4 L. (2) Atrial fibrillation with RVR Is this a current diagnosis for this admission?: Yes Plan: Patient has been on amiodarone. 12/24/2018-patient came in with A. fib with RVR initially on amiodarone drip presently receiving amiodarone via NG tube. Heart rate is relatively controlled 64. Plan is to continue the present management. Likely has a paroxysmal atrial fibrillation. 12/25/2018-patient admitted with A. fib with RVR initially amiodarone drip now he is on amiodarone 200 mg p.o. twice daily he is also on Coreg at home which was restarted heart rate is 60 in sinus rhythm. 12/26/2018-patient admitted with A. fib with RVR initially on amiodarone drip presently on amiodarone 200 mg p.o. daily and Coreg 12.5 mg p.o. twice daily heart rate is 60 2E has a pacemaker defibrillator. Heart rate today 62 well- controlled. 12/27/2018-patient admitted with atrial fibrillation RVR on amiodarone 200 mg p.o. twice daily and Coreg 12.5 mg p.o. twice daily plan is to continue the present management heart rate is 61. (3) Acute hypercapnic respiratory failure Is this a current diagnosis for this admission?: Yes Plan: Patient is on mechanical ventilator. 12/24/2018-patient admitted with acute hypercapnic respiratory failure most likely secondary to underlying pneumonia and acute on chronic systolic heart failure. Patient is presently intubated on IV antibiotic therapy plan to extubate him today. 12/25/2018-patient admitted with acute respiratory failure with hypoxia and hypercapnia we will try to wean him off today. He is off the Versed drip. ABG this morning pH is 7.43 PCO2 44 PO2 76 bicarb is 29 oxygen saturation is 95% on 30% oxygen. Chest x-ray more opinion may have right-sided pneumonia he is getting IV cefepime azithromycin and vancomycin plan is to discontinue cephapirin from today. Wound culture came back skin lola. Afebrile for the l ast 72 hours. tracheal aspirate came back positive for H. influenzae. 12/26/2018-patient admitted with acute respiratory failure with hypoxia and hypercapnia on mechanical ventilation he is ABG this morning pH is 7.45 PCO2 42 PO2 68 bicarb is 28 oxygen saturation is 94% on 30% oxygen. He is off the sedation since yesterday plan to wean him off today. Chest x-ray did not show any acute pathology today. 12/27/[id number]-ishh-old male admitted with acute on chronic respiratory failure with hypoxia most likely secondary to exacerbation of CHF and pneumonia plan is to extubate him today. (4) Pneumonia Is this a current diagnosis for this admission?: Yes Plan: Bilateral infiltrate, empiric antibiotics, follow-up CBC and blood culture 12/24/2018-patient came in with healthcare associated pneumonia tracheal aspirate positive for H influenza presently on azithromycin, cefepime. vancomycin. Afebrile. WBC count is 6.9. Plan is to continue the present management. 12/25/2018-patient came in with healthcare associated pneumonia, tracheal aspirate positive for H influenza on azithromycin ,cefepime and vancomycin 12/26/2018-patient admitted with healthcare associated pneumonia, tracheal aspirate positive for H influenza presently is on azithromycin and vancomycin. a Febrile for the last several days. Plan is to complete the antibiotic course. 12/27/2018-patient is presently on azithromycin and vancomycin. Chest x-ray this morning did not suggestive of any pneumonia tracheal aspirate positive for H influenza will complete the antibiotic course. (5) Chronic kidney disease, stage III (moderate) Is this a current diagnosis for this admission?: Yes Plan: 12/24/2018-patient's creatinine is 1.39 patient has a chronic kidney disease his baseline creatinine is around 1.4. 12/25/2018-serum creatinine is 1.32 baseline creatinine is 1.4. Urinary output i s 2.4 L. Continue to closely monitor his creatinine. 12/26/2018-patient creatinine yesterday is 1.32 his baseline creatinine is around 1.4 today's labs are pending. 12/27/2018-patient serum creatinine today is 1.45, baseline creatinine is around 1.4 plan is to continue his IV Lasix twice a day. (6) Hyperkalemia Is this a current diagnosis for this admission?: Yes Plan: Has resolved 12/24/2018-patient serum potassium today is 3.6 hyperkalemia is resolved. 12/25/2018-patient serum potassium is 3.4 today which is going to be sup plemented. 12/27/2018-serum potassium today is 2.9 to start on 40 mg of potassium p.o. twice daily. (7) Thrombocytopenia Is this a current diagnosis for this admission?: Yes Plan: Chronic at baseline. Follow-up CBC 12/25/2018-patient's platelet count is 88,000 gradually improving. Because of thrombocytopenia is unknown at this time. 12/27/2018-platelet count is 96,000 continue to show improvement. (8) HTN (hypertension) Is this a current diagnosis for this admission?: No Plan: 12/25/2018-patient blood pressure today is 172/65. Plan is to discontinue IV f luids and increase the Lasix to 40 twice a day and plan to give albumin. To closely monitor his blood pressures. 3+ edema is noted in the lower extremities. 12/26/2018-patient blood pressure today is 172/90 presently on Lasix 40 mg IV twice daily, Coreg 12.5 mg twice a day, Entresto. Plan is to continue the present management and is on hydralazine 10 mg every 4 PRN for blood pressure more than 150. 12/27/2018-blood pressure today is 162/90 improved from yesterday presently on IV Lasix 40 mg twice a day, Coreg 12.5 mg p.o. twice daily, Entresto twice a day. He is also on hydralazine 10 mg IV every 4 as needed for blood pressure. - Time Time Spent with patient: 25-34 minutes Medications reviewed and adjusted accordingly: Yes Anticipated discharge: SNF
[2018-12-27] MEDS: AZITHROMYCIN 500 MG in DEXTROSE 5%-WATER 250 ML IV SCH (12:54)
[2018-12-27] MEDS: VANCOMYCIN HCL 750 MG in DEXTROSE 5%-WATER 250 ML IV SCH (12:56)
[2018-12-27] MEDS ORDERED: POTASSIUM CHLORIDE 20 MEQ PACKET NG SCH (18:00)
[2018-12-27] MEDS: POTASSIUM CHLORIDE 20 MEQ/50 ML RTU IV SCH ×2 (20:50→22:14)
[2018-12-28] MEDS: INSULIN LISPRO 100 UNIT/ML 3 ML VIAL SUBCUT SCH ×5 (01:55→21:18)
[2018-12-28 03:54] LABS: ABSOLUTE EOSINOPHILS # (AUTO) 0.1 10^3/uL (0.0-0.6); ABSOLUTE LYMPHOCYTES (AUTO) 0.5 10^3/uL (0.5-4.7); ABSOLUTE MONOCYTES (AUTO) 0.6 10^3/uL (0.1-1.4); ABSOLUTE NEUT (AUTO) 6.1 10^3/uL (1.7-8.2); BASOPHILS % (AUTO) 0.5 % (0-2); HEMATOCRIT 30.9 % (37.9-51.0); HEMOGLOBIN 10.1 g/dL (13.5-17.0); LYMPHOCYTES % (AUTO) 7.1 % (13-45); MEAN CORPUSCULAR HEMOGLOBIN 26.3 pg (27.0-33.4); MEAN CORPUSCULAR HGB CONC 32.8 g/dL (32.0-36.0); MEAN CORPUSCULAR VOLUME 80 fl (80-97); MONOCYTES % (AUTO) 8.4 % (3-13); PLATELET COUNT 101 10^3/uL (150-450); RED BLOOD COUNT 3.86 10^6/uL (4.35-5.55); RED CELL DISTRIBUTION WIDTH 19.1 % (11.5-14.0); TOTAL CELLS COUNTED % (AUTO) 100 %; WHITE BLOOD COUNT 7.4 10^3/uL (4.0-10.5)
[2018-12-28 04:11] LABS: ANION GAP 7 (5-19); BLOOD UREA NITROGEN 32 mg/dL (7-20); CALCIUM 8.8 mg/dL (8.4-10.2); CARBON DIOXIDE 36 mmol/L (22-30); CHLORIDE 100 mmol/L (98-107); GLUCOSE 112 mg/dL (75-110); POTASSIUM 3.3 mmol/L (3.6-5.0); SODIUM 142.6 mmol/L (137-145)
[2018-12-28 04:48] LABS: ARTERIAL BLOOD BASE EXCESS 10.2 mmol/L; ARTERIAL BLOOD H2CO3 1.49 mmol/L (1.05-1.35); ARTERIAL BLOOD HCO3 35.1 mmol/L (20-24); ARTERIAL BLOOD O2 SATURATION 96.9 % (94-98); ARTERIAL BLOOD PCO2 49.4 mmHg (35-45); ARTERIAL BLOOD PH 7.47 (7.35-7.45); ARTERIAL BLOOD PO2 85.7 mmHg (80-100); ARTERIAL BLOOD TOTAL CO2 36.7 mmol/L (23-27)
[2018-12-28 04:50] LABS: ARTERIAL BLOOD FIO2 2L
[2018-12-28] MEDS: POTASSIUM CHLORIDE 20 MEQ/50 ML RTU IV SCH ×2 (05:32→09:01)
[2018-12-28] MEDS: HEPARIN SOD (PORCINE) 5,000 UNIT/ML 1 ML SYRINGE SUBCUT SCH ×3 (05:34→21:18)
[2018-12-28] MEDS: FUROSEMIDE INJ/PF 40 MG/4 ML SDV IV SCH ×2 (05:34→17:23)
[2018-12-28] MEDS ORDERED: POTASSIUM CHLORIDE 10 MEQ CAPSULE.ER PO ONE (07:55)
--- NOTE | 2018-12-28 08:57 | RADIOLOGY REPORT (SQ) ---
EXAM DESCRIPTION: CHEST SINGLE VIEW COMPLETED DATE/TIME: 12/28/2018 6:52 am REASON FOR STUDY: resp failure COMPARISON: 12/27/2018 NUMBER OF VIEWS: One view. TECHNIQUE: Single frontal radiographic image of the chest acquired. LIMITATIONS: None. FINDINGS: LUNGS AND PLEURA: Small left pleural effusion. No pneumothorax. MEDIASTINUM AND HEART: Stable heart size and mediastinal structures. SUPPORT DEVICES: Interval removal of nasogastric and endotracheal tube. Unchanged position of pacema ker. BONY STRUCTURES: No acute findings. HARDWARE: CABG. OTHER: No other significant finding. IMPRESSION: Stable chest status post extubation. Reading location - IP/workstation name: [email or web address]
[2018-12-28] MEDS: ASPIRIN 325 MG TABLET NG SCH (09:01)
[2018-12-28] MEDS: CARVEDILOL 12.5 MG TABLET NG SCH ×2 (09:01→21:18)
[2018-12-28] MEDS: POTASSIUM CHLORIDE 20 MEQ PACKET NG SCH ×2 (09:02→17:23)
[2018-12-28] MEDS: AMIODARONE HCL 200 MG TABLET NG SCH (09:02)
[2018-12-28] MEDS: SACUBITRIL/VALSARTAN 97 MG/103 MG TABLET NG SCH ×2 (09:03→21:18)
--- NOTE | 2018-12-28 09:05 | PDOC PROGRESS REPORT ---
Subjective Progress Note for:: 12/28/18 Subjective:: 88 years old male patient from long-term with multiple comorbidities including atrial fibrillation, congestive heart failure, [place], hypertension, type 2 diabetes mellitus stage IV CKD and anemia with chief complaint of difficulty breathing and altered mental status. When EMS seen the patient patient found to be in severe respiratory distress with faint pulse for which she was given atropine and placed him on CPAP. His ABG shows hypercapnia with PCO2 of 76. Patient failed trial of BiPAP with ABG showing worsening hypercapnia patient emergently intubated by ER attending. Patient transferred to ICU. His chest x-ray shows multiple patchy bilateral and perihilar and left basilar consolidation which is possible developing pneumonia. Patient has been started on cefepime and vancomycin. This morning his ABG is normalized. His blood work shows hyperkalemia with potassium 5.4, creatinine of 1.76 and BUN of 53. 12/20/2018: Patient remained intubated. His tracheal aspirate culture reported no growth in 24 hours. Patient has been on cefepime and vancomycin. 12/21/2018: Patient still remains intubated. He has been on cefepime and vancomycin for possible healthcare associated pneumonia. His tracheal aspirate is positive for Haemophilus influenza A and the final report is pending. He has been producing adequate urine. Patient is not ready for weaning trial. 12/22/2018: Patient remained intubated patient has an episode of hypotension and A. fib with RVR. His Lasix is on hold and patient has been started on amiodarone infusion by Dr. Glover. 12/23/2018: Patient remained intubated. His labs reviewed and it shows mild hy pokalemia with potassium 3.3 and his function is relatively improving his creatinine was 1.48 yesterday today 1.37. We will continue the current regimen and comanage with Dr. Glover. 12/24/2018-patient is still on mechanical ventilation weaning process was done for 8 hours yesterday which was successful we try to wean him off today if possible. Patient is not on amiodarone drip anymore presently on amiodarone via NG tube heart rate is well controlled 64. No acute events in the last 24 hours. Potassium is 3.6. Creatinine was slightly improved 1.39. The tracheal aspirate culture positive for H influenza presently on azithromycin/cefepime/vancomycin. Blood cultures are negative. 12/25/[id number]-zjyf-old male with multiple comorbidities admitted for atrial fibrillation with RVR and acute respiratory failure with hypoxia due to pneumonia. Heart rate is well controlled in the 60s he is on amiodarone 200 mg p.o. twice daily. Potassium is 3.4 which is going to be supplemented. No acute events in the last 24 hours afebrile. Unable to extubate the patient yesterday. Today we are going to start the weaning process again. Creatinine was improved to 1.32. Presently on 30% oxygen on SIMV with tidal volume of 500. pt is off sedation from 5 AM. 12/26/[id number]-pejy-old male with multiple comorbidities admitted with A. fib with RVR he is on presently amiodarone 200 mg p.o. daily the heart rate this morning is 62 well-controlled his Coreg was restarted at 12.5 mg p.o. twice daily. Main concern today is to extubate him he is moving his arms and legs little bit but not opening his eyes not following the commands at daughter was at bedside her name is Katya as per her wishes once he is extubated she does not want to back in she does want a PEG tube she is going to talk to the vp digital marketing social media and crm today to get power of workers compensation attorney she wants him to make a DNR but she is requesting some time for that. No acute events in the last 24 hours. Patient blood pressure is 170/90 and on examination upper and lower extremity edema present. 12/27/[id number]-uiho-old male admitted for A. fib with RVR rate controlled presently on amiodarone 200 mg p.o. daily and also on Coreg 12.5 mg p.o. twice daily heart rate this morning is 61. Patient is alert awake responding to verbal commands he is still intubated off the sedation for the last 2 days plan to extubate him today. Chest x-ray shows improving CHF. Present on Lasix 40 mg IV twice daily. Daughter was at bedside he is she is happy with the care and she again requested me that he needs to be DNR/DNI and she does not does not want any trach does not want any PEG placement. 12/28/2018-this elderly male successfully be extubated yesterday resting comfortably in the bed no acute events in the last 24 hours. Afebrile. Pulse ox is 94% on 2 L. Reason For Visit: ACUTE RESPIRATORY FAILURE,ARF,PNEUMONIA Physical Exam Vital Signs: Temp Pulse Resp BP Pulse Ox 98.8 F 63 20 136/75 H 2 L 12/28/18 07:40 12/28/18 07:40 12/28/18 07:40 12/28/18 07:40 12/28/18 08:16 Intake & Output 12/27/18 12/28/18 12/29/18 06:59 06:59 06:59 Intake Total 668 585 Output Total 3135 2185 380 Balance -6312 -1600 -380 Weight 99.4 kg 97 kg General appearance: PRESENT: no acute distress, other - Possibly sleeping in the bed. Head exam: PRESENT: atraumatic Eye exam: PRESENT: PERRLA Ear exam: PRESENT: normal external ear exam Mouth exam: PRESENT: moist, tongue midline Teeth exam: PRESENT: poor dentation Respiratory exam: PRESENT: clear to auscultation galo. ABSENT: rales, rhonchi, wheezes Cardiovascular exam: PRESENT: RRR. ABSENT: diastolic murmur, rubs, systolic murmur GI/Abdominal exam: PRESENT: normal bowel sounds, soft. ABSENT: distended, guarding, mass, organolmegaly, rebound, tenderness Rectal exam: PRESENT: deferred Gentrourinary exam: PRESENT: indwelling catheter Extremities exam: PRESENT: +2 edema Neurological exam: PRESENT: alert, awake, oriented to person, oriented to place, oriented to time, oriented to situation, CN II-XII grossly intact. ABSENT: motor sensory deficit Psychiatric exam: PRESENT: appropriate affect, normal mood. ABSENT: homicidal ideation, suicidal ideation Results Laboratory Results: 12/28/18 03:46 12/28/18 03:46 12/27/18 12/28/18 12/28/18 13:09 03:46 03:46 WBC 7.4 RBC 3.86 L Hgb 10.1 L Hct 30.9 L MCV 80 MCH 26.3 L MCHC 32.8 RDW 19.1 H Plt Count 101 L Seg Neutrophils % 83.0 H Lymphocytes % 7.1 L Monocytes % 8.4 Eosinophils % 1.0 Basophils % 0.5 Absolute Neutrophils 6.1 Absolute Lymphocytes 0.5 Absolute Monocytes 0.6 Absolute Eosinophils 0.1 Absolute Basophils 0.0 Carbonic Acid HCO3/H2CO3 Ratio ABG pH ABG pCO2 ABG pO2 ABG HCO3 ABG O2 Saturation ABG Base Excess FiO2 Sodium 142.6 Potassium 3.1 L 3.3 L Chloride 100 Carbon Dioxide 36 H Anion Gap 7 BUN 32 H Creatinine 1.51 H Est GFR ( Amer) 53 L Est GFR (Non-Af Amer) 44 L Glucose 112 H Calcium 8.8 Magnesium 1.9 12/28/18 04:38 WBC RBC Hgb Hct MCV MCH MCHC RDW Plt Count Seg Neutrophils % Lymphocytes % Monocytes % Eosinophils % Basophils % Absolute Neutrophils Absolute Lymphocytes Absolute Monocytes Absolute Eosinophils Absolute Basophils Carbonic Acid 1.49 H HCO3/H2CO3 Ratio 23:1 ABG pH 7.47 H ABG pCO2 49.4 H ABG pO2 85.7 ABG HCO3 35.1 H ABG O2 Saturation 96.9 ABG Base Excess 10.2 FiO2 2L Sodium Potassium Chloride Carbon Dioxide Anion Gap BUN Creatinine Est GFR ( Amer) Est GFR (Non-Af Amer) Glucose Calcium Magnesium 12/23/18 01:15 Toe - Right Big Toe Gram Stain - Final 12/23/18 01:15 Toe - Right Big Toe Wound Culture - Final Enterococcus Faecalis(Group D) Skin Lola 12/18/18 12/19/18 12/19/18 22:35 01:10 12:04 Creatine Kinase < 20 L CK-MB (CK-2) Troponin I 0.183 0.181 NT-Pro-B Natriuret Pep 12/19/18 12/19/18 12/19/18 12:04 17:42 17:42 Creatine Kinase < 20 L CK-MB (CK-2) 0.84 0.59 Troponin I 0.107 0.095 NT-Pro-B Natriuret Pep 12/19/18 12/19/18 12/23/18 23:26 23:26 03:33 Creatine Kinase < 20 L CK-MB (CK-2) 0.67 Troponin I 0.093 2.060 NT-Pro-B Natriuret Pep 29748 H Impressions: KUB X-Ray 12/23/18 00:00 IMPRESSION: Nasogastric tube tip in the stomach. Chest X-Ray 12/28/18 06:00 IMPRESSION: Stable chest status post extubation. 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 Patient is not in fluid overload. Well compensated at this time. 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 Patient is on IV Lasix 20 mg every 12 hours plan is to increase the Lasix to 40 every 12 and I will give albumin. Urinary output is 2.4 L yesterday with a negative fluid balance of 1700 mL. 12/26/2018-patient is on Lasix 40 mg IV twice a day and he has history of chronic systolic heart failure urinary output is good still have 2+ pedal edema involving the upper and lower extremities presently on Lasix 40 mg every 12 hours he received IV albumin last night. Urinary output is 2.4 L yesterday with negative fluid balance of 1750. To give another albumin supplementation today. 12/27/2018-chest x-ray indicates improving pulmonary edema and upper extremity lower extremity swelling is improved also present on Lasix 40 mg IV twice daily urinary output is 3.1 L with a negative fluid balance of 2.4 L. 12/28/2018-chest x-ray shows small left pleural effusion and pacemaker in place. Still have upper and lower extremity edema improving. Lower extremity edema is 2+. On IV Lasix 40 mg twice a day. 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 (2) Atrial fibrillation with RVR Is this a current diagnosis for this admission?: Yes Plan: Patient has been on amiodarone. 12/24/2018-patient came in with A. fib with RVR initially on amiodarone drip presently receiving amiodarone via NG tube. Heart rate is relatively controlled 64. Plan is to continue the present management. Likely has a paroxysmal atrial fibrillation. 12/25/2018-patient admitted with A. fib with RVR initially amiodarone drip now he is on amiodarone 200 mg p.o. twice daily he is also on Coreg at home which was restarted heart rate is 60 in sinus rhythm. 12/26/2018-patient admitted with A. fib with RVR initially on amiodarone drip presently on amiodarone 200 mg p.o. daily and Coreg 12.5 mg p.o. twice daily heart rate is 60 2E has a pacemaker defibrillator. Heart rate today 62 well- controlled. 12/27/2018-patient admitted with atrial fibrillation RVR on amiodarone 200 mg p.o . twice daily and Coreg 12.5 mg p.o. twice daily plan is to continue the present management heart rate is 61. 12/28/2018-patient admitted with atrial fibrillation with rapid ventricular rate initially on amiodarone drip now he is on amiodarone 200 mg p.o. daily and is also on Coreg 12.5 mg twice a day. Latest heart rate is 63. Well controlled. (3) Acute hypercapnic respiratory failure Is this a current diagnosis for this admission?: Yes Plan: Patient is on mechanical ventilator. 12/24/2018-patient admitted with acute hypercapnic respiratory failure most likely secondary to underlying pneumonia and acute on chronic systolic heart failure. Patient is presently intubated on IV antibiotic therapy plan to extubate him today. 12/25/2018-patient admitted with acute respiratory failure with hypoxia and hypercapnia we will try to wean him off today. He is off the Versed drip. ABG this morning pH is 7.43 PCO2 44 PO2 76 bicarb is 29 oxygen saturation is 95% on 30% oxygen. Chest x-ray more opinion may have right-sided pneumonia he is getting IV cefepime azithromycin and vancomycin plan is to discontinue cephapirin from today. Wound culture came back skin lola. Afebrile for the last 72 hours. tracheal aspirate came back positive for H. influenzae. 12/26/2018-patient admitted with acute respiratory failure with hypoxia and hypercapnia on mechanical ventilation he is ABG this morning pH is 7.45 PCO2 42 PO2 68 bicarb is 28 oxygen saturation is 94% on 30% oxygen. He is off the sedation since yesterday plan to wean him off today. Chest x-ray did not show any acute pathology today. 12/27/[id number]-hefo-old male admitted with acute on chronic respiratory failure with hypoxia most likely secondary to exacerbation of CHF and pneumonia plan is to extubate him today. 12/28/[id number]-cbyf-old male admitted with acute on chronic respiratory failure with hypoxia most likely secondary to CHF exacerbation and underlying pneumonia. Patient was successfully extubated. No complications after the extubation. (4) Pneumonia Is this a current diagnosis for this admission?: Yes Plan: Bilateral infiltrate, empiric antibiotics, follow-up CBC and blood culture 12/24/2018-patient came in with healthcare associated pneumonia tracheal aspirate positive for H influenza presently on azithromycin, cefepime. vancomycin. Afebrile. WBC count is 6.9. Plan is to continue the present management. 12/25/2018-patient came in with healthcare associated pneumonia, tracheal aspirate positive for H influenza on azithromycin ,cefepime and vancomycin 12/26/2018-patient admitted with healthcare associated pneumonia, tracheal aspirate positive for H influenza presently is on azithromycin and vancomycin. a Febrile for the last several days. Plan is to complete the antibiotic course. 12/27/2018-patient is presently on azithromycin and vancomycin. Chest x-ray this morning did not suggestive of any pneumonia tracheal aspirate positive for H influenza will complete the antibiotic course. 12/28/2018-tracheal aspirate shows H influenza presently on azithromycin and vancomycin patient is afebrile plan is to discontinue the antibiotics. (5) Chronic kidney disease, stage III (moderate) Is this a current diagnosis for this admission?: Yes Plan: 12/24/2018-patient's creatinine is 1.39 patient has a chronic kidney disease his baseline creatinine is around 1.4. 12/25/2018-serum creatinine is 1.32 baseline creatinine is 1.4. Urinary output is 2.4 L. Continue to closely monitor his creatinine. 12/26/2018-patient creatinine yesterday is 1.32 his baseline creatinine is around 1.4 today's labs are pending. 12/27/2018-patient serum creatinine today is 1.45, baseline creatinine is around 1.4 plan is to continue his IV Lasix twice a day. 12/28/2018-patient creatinine is 1.51 slightly elevated compared to yesterday. Patient has stage III kidney disease urinary output is excellent. (6) Hyperkalemia Is this a current diagnosis for this admission?: Yes Plan: Has resolved 12/24/2018-patient serum potassium today is 3.6 hyperkalemia is resolved. 12/25/2018-patient serum potassium is 3.4 today which is going to be supplement ed. 12/27/2018-serum potassium today is 2.9 to start on 40 mg of potassium p.o. twice daily. 12/28/2018-patient came in with hyperkalemia potassium is 3.3 today which is going to be supplemented with her daily potassium. He is on Lasix 40 mg IV twice daily hypokalemia most likely secondary to Lasix use. (7) Thrombocytopenia Is this a current diagnosis for this admission?: Yes Plan: Chronic at baseline. Follow-up CBC 12/25/2018-patient's platelet count is 88,000 gradually improving. Because of thrombocytopenia is unknown at this time. 12/27/2018-platelet count is 96,000 continue to show improvement. 12/28/2018-patient's platelet count is 101 continue to show improvement. (8) HTN (hypertension) Is this a current diagnosis for this admission?: No Plan: 12/25/2018-patient blood pressure today is 172/65. Plan is to discontinue IV fluids and increase the Lasix to 40 twice a day and plan to give albumin. To closely monitor his blood pressures. 3+ edema is noted in the lower extremities. 12/26/2018-patient blood pressure today is 172/90 presently on Lasix 40 mg IV twice daily, Coreg 12.5 mg twice a day, Entresto. Plan is to continue the present management and is on hydralazine 10 mg every 4 PRN for blood pressure more than 150. 12/27/2018-blood pressure today is 162/90 improved from yesterday presently on IV Lasix 40 mg twice a day, Coreg 12.5 mg p.o. twice daily, Entresto twice a day. He is also on hydralazine 10 mg IV every 4 as needed for blood pressure. 12/28/2018-patient blood pressure today is 136/75. Stable. - Time Time Spent with patient: 15-24 minutes Medications reviewed and adjusted accordingly: Yes Anticipated discharge: [facility]
[2018-12-28] MEDS: ALBUMIN HUMAN 12.5 GM/50 ML RTUINJ IV SCH ×4 (10:15→14:30)
[2018-12-28] MEDS ORDERED: POTASSIUM CHLORIDE 20 MEQ PACKET NG ONE (11:00)
[2018-12-28] MEDS ORDERED: FUROSEMIDE INJ/PF 20 MG/2 ML SDV ONE (11:16)
[2018-12-29 05:19] LABS: ABSOLUTE EOSINOPHILS # (AUTO) 0.1 10^3/uL (0.0-0.6); ABSOLUTE LYMPHOCYTES (AUTO) 0.5 10^3/uL (0.5-4.7); ABSOLUTE MONOCYTES (AUTO) 0.5 10^3/uL (0.1-1.4); ABSOLUTE NEUT (AUTO) 6.5 10^3/uL (1.7-8.2); BASOPHILS % (AUTO) 0.6 % (0-2); HEMOGLOBIN 9.5 g/dL (13.5-17.0); LYMPHOCYTES % (AUTO) 6.9 % (13-45); MEAN CORPUSCULAR HEMOGLOBIN 26.1 pg (27.0-33.4); MEAN CORPUSCULAR HGB CONC 32.7 g/dL (32.0-36.0); MEAN CORPUSCULAR VOLUME 80 fl (80-97); MONOCYTES % (AUTO) 6.5 % (3-13); PLATELET COUNT 101 10^3/uL (150-450); RED BLOOD COUNT 3.62 10^6/uL (4.35-5.55); RED CELL DISTRIBUTION WIDTH 18.6 % (11.5-14.0); TOTAL CELLS COUNTED % (AUTO) 100 %; WHITE BLOOD COUNT 7.6 10^3/uL (4.0-10.5)
[2018-12-29] MEDS: HEPARIN SOD (PORCINE) 5,000 UNIT/ML 1 ML SYRINGE SUBCUT SCH ×3 (05:19→21:30)
[2018-12-29] MEDS: FUROSEMIDE INJ/PF 40 MG/4 ML SDV IV SCH ×2 (05:27→10:41)
[2018-12-29 05:53] LABS: ALANINE AMINOTRANSFERASE 19 U/L (21-72); ALBUMIN 3.3 g/dL (3.5-5.0); ALKALINE PHOSPHATASE 85 U/L (38-126); ANION GAP 12 (5-19); ASPARTATE AMINO TRANSFERASE 20 U/L (17-59); BILIRUBIN,DIRECT 0.8 mg/dL (0.0-0.4); BILIRUBIN,TOTAL 1.2 mg/dL (0.2-1.3); BLOOD UREA NITROGEN 34 mg/dL (7-20); CALCIUM 8.9 mg/dL (8.4-10.2); CARBON DIOXIDE 35 mmol/L (22-30); CHLORIDE 99 mmol/L (98-107); GLUCOSE 98 mg/dL (75-110); POTASSIUM 3.1 mmol/L (3.6-5.0); SODIUM 146.1 mmol/L (137-145); TOTAL PROTEIN 5.7 g/dL (6.3-8.2)
[2018-12-29] MEDS: AMIODARONE HCL 200 MG TABLET NG SCH (10:41)
[2018-12-29] MEDS: CARVEDILOL 12.5 MG TABLET NG SCH ×2 (10:41→21:31)
[2018-12-29] MEDS: POTASSIUM CHLORIDE 20 MEQ PACKET NG SCH ×2 (10:41→18:45)
[2018-12-29] MEDS: ASPIRIN 325 MG TABLET NG SCH (10:44)
[2018-12-29] MEDS: SACUBITRIL/VALSARTAN 97 MG/103 MG TABLET NG SCH ×2 (10:45→21:31)
[2018-12-29] MEDS: INSULIN LISPRO 100 UNIT/ML 3 ML VIAL SUBCUT SCH ×4 (10:46→21:37)
--- NOTE | 2018-12-29 10:55 | PDOC PROGRESS REPORT ---
Subjective Progress Note for:: 12/29/18 Subjective:: 88 years old male patient from senior living with multiple comorbidities including atrial fibrillation, congestive heart failure, CT, hypertension, type 2 diabetes mellitus stage IV CKD and anemia with chief complaint of difficulty breathing and altered mental status. When EMS seen the patient patient found to be in severe respiratory distress with faint pulse for which she was given atropine and placed him on CPAP. His ABG shows hypercapnia with PCO2 of 76. Patient failed trial of BiPAP with ABG showing worsening hypercapnia patient emergently intubated by ER attending. Patient transferred to ICU. His chest x-ray shows multiple patchy bilateral and perihilar and left basilar consolidation which is possible developing pneumonia. Patient has been started on cefepime and vancomycin. This morning his ABG is normalized. His blood work shows hyperkalemia with potassium 5.4, creatinine of 1.76 and BUN of 53. 12/20/2018: Patient remained intubated. His tracheal aspirate culture reported no growth in 24 hours. Patient has been on cefepime and vancomycin. 12/21/2018: Patient still remains intubated. He has been on cefepime and vancomycin for possible healthcare associated pneumonia. His tracheal aspirate is positive for Haemophilus influenza A and the final report is pending. He has been producing adequate urine. Patient is not ready for weaning trial. 12/22/2018: Patient remained intubated patient has an episode of hypotension and A. fib with RVR. His Lasix is on hold and patient has been started on amiodarone infusion by Dr. Glover. 12/23/2018: Patient remained intubated. His labs reviewed and it shows mild hy pokalemia with potassium 3.3 and his function is relatively improving his creatinine was 1.48 yesterday today 1.37. We will continue the current regimen and comanage with Dr. Glover. 12/24/2018-patient is still on mechanical ventilation weaning process was done for 8 hours yesterday which was successful we try to wean him off today if possible. Patient is not on amiodarone drip anymore presently on amiodarone via NG tube heart rate is well controlled 64. No acute events in the last 24 hours. Potassium is 3.6. Creatinine was slightly improved 1.39. The tracheal aspirate culture positive for H influenza presently on azithromycin/cefepime/vancomycin. Blood cultures are negative. 12/25/[id number]-hbeh-old male with multiple comorbidities admitted for atrial fibrillation with RVR and acute respiratory failure with hypoxia due to pneumonia. Heart rate is well controlled in the 60s he is on amiodarone 200 mg p.o. twice daily. Potassium is 3.4 which is going to be supplemented. No acute events in the last 24 hours afebrile. Unable to extubate the patient yesterday. Today we are going to start the weaning process again. Creatinine was improved to 1.32. Presently on 30% oxygen on SIMV with tidal volume of 500. pt is off sedation from 5 AM. 12/26/[id number]-zhsw-old male with multiple comorbidities admitted with A. fib with RVR he is on presently amiodarone 200 mg p.o. daily the heart rate this morning is 62 well-controlled his Coreg was restarted at 12.5 mg p.o. twice daily. Main concern today is to extubate him he is moving his arms and legs little bit but not opening his eyes not following the commands at daughter was at bedside her name is Katya as per her wishes once he is extubated she does not want to back in she does want a PEG tube she is going to talk to the social services specialist today to get power of banking attorney she wants him to make a DNR but she is requesting some time for that. No acute events in the last 24 hours. Patient blood pressure is 170/90 and on examination upper and lower extremity edema present. 12/27/[id number]-nkfs-old male admitted for A. fib with RVR rate controlled presently on amiodarone 200 mg p.o. daily and also on Coreg 12.5 mg p.o. twice daily heart rate this morning is 61. Patient is alert awake responding to verbal commands he is still intubated off the sedation for the last 2 days plan to extubate him today. Chest x-ray shows improving CHF. Present on Lasix 40 mg IV twice daily. Daughter was at bedside he is she is happy with the care and she again requested me that he needs to be DNR/DNI and she does not does not want any trach does not want any PEG placement. 12/28/2018-this elderly male successfully be extubated yesterday resting comfortably in the bed no acute events in the last 24 hours. Afebrile. Pulse ox is 94% on 2 L. 12/29/[id number]-xuiw-old male admitted with acute respiratory failure with hypoxia status post intubation and extubation he was [place] [facility] [place]. No acute events in the last 24 hours. A patient is afebrile. Patient is looks more anxious and not communicating well this morning. Patient is DNR/DNI. Reason For Visit: ACUTE RESPIRATORY FAILURE,ARF,PNEUMONIA Physical Exam Vital Signs: Temp Pulse Resp BP Pulse Ox 98.6 F 81 14 138/54 H 94 12/29/18 05:53 12/29/18 05:53 12/29/18 05:53 12/29/18 05:53 12/29/18 08:00 Intake & Output 12/28/18 12/29/18 12/30/18 06:59 06:59 06:59 Intake Total 585 400 Output Total 2185 2635 Balance -1600 -2235 Weight 97 kg 95.3 kg General appearance: PRESENT: no acute distress Head exam: PRESENT: atraumatic Eye exam: PRESENT: PERRLA Mouth exam: PRESENT: dry mucosa Neck exam: ABSENT: carotid bruit, JVD, lymphadenopathy, thyromegaly Cardiovascular exam: PRESENT: RRR. ABSENT: diastolic murmur, rubs, systolic murmur GI/Abdominal exam: PRESENT: normal bowel sounds, soft. ABSENT: distended, guarding, mass, organolmegaly, rebound, tenderness Rectal exam: PRESENT: deferred Neurological exam: PRESENT: other - Alert and awake not communicating well this morning. Looks confused. Psychiatric exam: PRESENT: anxious Results Laboratory Results: 12/29/18 04:14 12/29/18 04:14 12/29/18 12/29/18 04:14 04:14 WBC 7.6 RBC 3.62 L Hgb 9.5 L Hct 29.0 L MCV 80 MCH 26.1 L MCHC 32.7 RDW 18.6 H Plt Count 101 L Seg Neutrophils % 85.0 H Lymphocytes % 6.9 L Monocytes % 6.5 Eosinophils % 1.0 Basophils % 0.6 Absolute Neutrophils 6.5 Absolute Lymphocytes 0.5 Absolute Monocytes 0.5 Absolute Eosinophils 0.1 Absolute Basophils 0.0 Sodium 146.1 H Potassium 3.1 L Chloride 99 Carbon Dioxide 35 H Anion Gap 12 BUN 34 H Creatinine 1.71 H Est GFR ( Amer) 46 L Est GFR (Non-Af Amer) 38 L Glucose 98 Calcium 8.9 Magnesium 2.0 Total Bilirubin 1.2 AST 20 ALT 19 L Alkaline Phosphatase 85 Total Protein 5.7 L Albumin 3.3 L 12/18/18 12/19/18 12/19/18 22:35 01:10 12:04 Creatine Kinase < 20 L CK-MB (CK-2) Troponin I 0.183 0.181 NT-Pro-B Natriuret Pep 12/19/18 12/19/18 12/19/18 12:04 17:42 17:42 Creatine Kinase < 20 L CK-MB (CK-2) 0.84 0.59 Troponin I 0.107 0.095 NT-Pro-B Natriuret Pep 12/19/18 12/19/18 12/23/18 23:26 23:26 03:33 Creatine Kinase < 20 L CK-MB (CK-2) 0.67 Troponin I 0.093 2.060 NT-Pro-B Natriuret Pep 60743 H Impressions: KUB X-Ray 12/23/18 00:00 IMPRESSION: Nasogastric tube tip in the stomach. Chest X-Ray 12/28/18 06:00 IMPRESSION: Stable chest status post extubation. 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 Patient is not in fluid overload. Well compensated at this time. 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 Patient is on IV Lasix 20 mg every 12 hours plan is to increase the Lasix to 40 every 12 and I will give albumin. Urinary output is 2.4 L yesterday with a negative fluid balance of 1700 mL. 12/26/2018-patient is on Lasix 40 mg IV twice a day and he has history of chronic systolic heart failure urinary output is good still have 2+ pedal edema involving the upper and lower extremities presently on Lasix 40 mg every 12 hours he received IV albumin last night. Urinary output is 2.4 L yesterday with negative fluid balance of 1750. To give another albumin supplementation today. 12/27/2018-chest x-ray indicates improving pulmonary edema and upper extremity lower extremity swelling is improved also present on Lasix 40 mg IV twice daily urinary output is 3.1 L with a negative fluid balance of 2.4 L. 12/28/2018-chest x-ray shows small left pleural effusion and pacemaker in place. Still have upper and lower extremity edema improving. Lower extremity edema is 2+. On IV Lasix 40 mg twice a day. 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 12/29/2018-post extubation chest x-ray stable. On examination still have upper and lower extremity edema present. Present on Lasix 40 mg IV twice daily creatinine is gradually worsening and it is 1.7 today. Plan is to discontinue Lasix to once a day and continue potassium supplementation 40 mg twice daily. pt CODE STATUS is DNR/DNI. (2) Atrial fibrillation with RVR Is this a current diagnosis for this admission?: Yes Plan: Patient has been on amiodarone. 12/24/2018-patient came in with A. fib with RVR initially on amiodarone drip presently receiving amiodarone via NG tube. Heart rate is relatively controlled 64. Plan is to continue the present management. Likely has a paroxysmal atrial fibrillation. 12/25/2018-patient admitted with A. fib with RVR initially amiodarone drip now he is on amiodarone 200 mg p.o. twice daily he is also on Coreg at home which was restarted heart rate is 60 in sinus rhythm. 12/26/2018-patient admitted with A. fib with RVR initially on amiodarone drip presently on amiodarone 200 mg p.o. daily and Coreg 12.5 mg p.o. twice daily heart rate is 60 2E has a pacemaker defibrillator. Heart rate today 62 well- controlled. 12/27/2018-patient admitted with atrial fibrillation RVR on amiodarone 200 mg p.o. twice daily and Coreg 12.5 mg p.o. twice daily plan is to continue the pres ent management heart rate is 61. 12/28/2018-patient admitted with atrial fibrillation with rapid ventricular rate initially on amiodarone drip now he is on amiodarone 200 mg p.o. daily and is also on Coreg 12.5 mg twice a day. Latest heart rate is 63. Well controlled. 12/29/2018-patient admitted with atrial fibrillation with rapid ventricular rate presently on amiodarone 100 mg p.o. daily and Coreg 12.5 mg p.o. twice daily. Latest heart rate is 82. (3) Acute hypercapnic respiratory failure Is this a current diagnosis for this admission?: Yes Plan: Patient is on mechanical ventilator. 12/24/2018-patient admitted with acute hypercapnic respiratory failure most likely secondary to underlying pneumonia and acute on chronic systolic heart failure. Patient is presently intubated on IV antibiotic therapy plan to extubate him today. 12/25/2018-patient admitted with acute respiratory failure with hypoxia and hypercapnia we will try to wean him off today. He is off the Versed drip. ABG this morning pH is 7.43 PCO2 44 PO2 76 bicarb is 29 oxygen saturation is 95% on 30% oxygen. Chest x-ray more opinion may have right-sided pneumonia he is getting IV cefepime azithromycin and vancomycin plan is to discontinue cephapi rin from today. Wound culture came back skin lola. Afebrile for the last 72 hours. tracheal aspirate came back positive for H. influenzae. 12/26/2018-patient admitted with acute respiratory failure with hypoxia and hypercapnia on mechanical ventilation he is ABG this morning pH is 7.45 PCO2 42 PO2 68 bicarb is 28 oxygen saturation is 94% on 30% oxygen. He is off the sedation since yesterday plan to wean him off today. Chest x-ray did not show any acute pathology today. 12/27/[id number]-jdux-old male admitted with acute on chronic respiratory failure with hypoxia most likely secondary to exacerbation of CHF and pneumonia plan is to extubate him today. 12/28/[id number]-qfjw-old male admitted with acute on chronic respiratory failure with hypoxia most likely secondary to CHF exacerbation and underlying pneumonia. Patient was successfully extubated. No complications after the extubation. 12/29/[id number]-kepk-old male admitted with acute on chronic respiratory failure tracheal aspirate cultures are positive for H. influenzae he completed the antibiotic course. He is afebrile. (4) Pneumonia Is this a current diagnosis for this admission?: Yes Plan: Bilateral infiltrate, empiric antibiotics, follow-up CBC and blood culture 12/24/2018-patient came in with healthcare associated pneumonia tracheal aspirate positive for H influenza presently on azithromycin, cefepime. vancomycin. Afebrile. WBC count is 6.9. Plan is to continue the present management. 12/25/2018-patient came in with healthcare associated pneumonia, tracheal aspirate positive for H influenza on azithromycin ,cefepime and vancomycin 12/26/2018-patient admitted with healthcare associated pneumonia, tracheal aspirate positive for H influenza presently is on azithromycin and vancomycin. a Febrile for the last several days. Plan is to complete the antibiotic course. 12/27/2018-patient is presently on azithromycin and vancomycin. Chest x-ray this morning did not suggestive of any pneumonia tracheal aspirate positive for H influenza will complete the antibiotic course. 12/28/2018-tracheal aspirate shows H influenza presently on azithromycin and vancomycin patient is afebrile plan is to discontinue the antibiotics. 12/29/2018-patient most likely admitted for hospital healthcare associated pneumonia treated with antibiotic therapy presently afebrile tracheal aspirate shows H. influenzae. Patient is on azithromycin, vancomycin and cefepime for last several days those medications are discontinued 48 hours ago. (5) Chronic kidney disease, stage III (moderate) Is this a current diagnosis for this admission?: Yes Plan: 12/24/2018-patient's creatinine is 1.39 patient has a chronic kidney disease his baseline creatinine is around 1.4. 12/25/2018-serum creatinine is 1.32 baseline creatinine is 1.4. Urinary output is 2.4 L. Continue to closely monitor his creatinine. 12/26/2018-patient creatinine yesterday is 1.32 his baseline creatinine is around 1.4 today's labs are pending. 12/27/2018-patient serum creatinine today is 1.45, baseline creatinine is around 1.4 plan is to continue his IV Lasix twice a day. 12/28/2018-patient creatinine is 1.51 slightly elevated compared to yesterday. Patient has stage III kidney disease urinary output is excellent. 12/29/2018-patient creatinine today 1.7, yesterday it was 1.5. On Lasix 40 mg twice daily plan is to decrease the Lasix to 40 mg daily and continue the potassium supplementation. Upper and lower extremities still edematous. He is on fluid restriction. (6) Hyperkalemia Is this a current diagnosis for this admission?: Yes Plan: Has resolved 12/24/2018-patient serum potassium today is 3.6 hyperkalemia is resolved. 12/25/2018-patient serum potassium is 3.4 today which is going to be supplemented. 12/27/2018-serum potassium today is 2.9 to start on 40 mg of potassium p.o. twice daily. 12/28/2018-patient came in with hyperkalemia potassium is 3.3 today which is going to be supplemented with her daily potassium. He is on Lasix 40 mg IV twice daily hypokalemia most likely secondary to Lasix use. 12/29/2018-serum potassium is 3.1 hyperkalemia is resolved presently on potassium supplementation. (7) Thrombocytopenia Is this a current diagnosis for this admission?: Yes Plan: Chronic at baseline. Follow-up CBC 12/25/2018-patient's platelet count is 88,000 gradually improving. Because of thrombocytopenia is unknown at this time. 12/27/2018-platelet count is 96,000 continue to show improvement. 12/28/2018-patient's platelet count is 101 continue to show improvement. 12/29/2018-platelet count is 101 today stable. (8) HTN (hypertension) Is this a current diagnosis for this admission?: No Plan: 12/25/2018-patient blood pressure today is 172/65. Plan is to discontinue IV fluids and increase the Lasix to 40 twice a day and plan to give albumin. To closely monitor his blood pressures. 3+ edema is noted in the lower extremities. 12/26/2018-patient blood pressure today is 172/90 presently on Lasix 40 mg IV twice daily, Coreg 12.5 mg twice a day, Entresto. Plan is to continue the present management and is on hydralazine 10 mg every 4 PRN for blood pressure more than 150. 12/27/2018-blood pressure today is 162/90 improved from yesterday presently on IV Lasix 40 mg twice a day, Coreg 12.5 mg p.o. twice daily, Entresto twice a day. He is also on hydralazine 10 mg IV every 4 as needed for blood pressure. 12/28/2018-patient blood pressure today is 136/75. Stable. 12/29/2018-patient blood pressure this morning 138/54 stable. - Time Time Spent with patient: 25-34 minutes Medications reviewed and adjusted accordingly: Yes Anticipated discharge: SNF
[2018-12-29] MEDS ORDERED: CARVEDILOL 12.5 MG TABLET NG SCH (22:00)
[2018-12-30] MEDS: HEPARIN SOD (PORCINE) 5,000 UNIT/ML 1 ML SYRINGE SUBCUT SCH ×3 (05:08→22:39)
[2018-12-30 05:59] LABS: ABSOLUTE BASOPHILS # (AUTO) 0.1 10^3/uL (0.0-0.2); ABSOLUTE LYMPHOCYTES (AUTO) 0.5 10^3/uL (0.5-4.7); ABSOLUTE MONOCYTES (AUTO) 0.6 10^3/uL (0.1-1.4); ABSOLUTE NEUT (AUTO) 7.5 10^3/uL (1.7-8.2); BASOPHILS % (AUTO) 0.7 % (0-2); EOSINOPHILS % (AUTO) 0.5 % (0-6); HEMATOCRIT 29.2 % (37.9-51.0); HEMOGLOBIN 9.6 g/dL (13.5-17.0); MEAN CORPUSCULAR HEMOGLOBIN 26.4 pg (27.0-33.4); MEAN CORPUSCULAR HGB CONC 32.8 g/dL (32.0-36.0); MEAN CORPUSCULAR VOLUME 81 fl (80-97); MONOCYTES % (AUTO) 7.1 % (3-13); PLATELET COUNT 121 10^3/uL (150-450); RED BLOOD COUNT 3.63 10^6/uL (4.35-5.55); SEGMENTED NEUTROPHILS % (AUTO) 85.7 % (42-78); TOTAL CELLS COUNTED % (AUTO) 100 %; WHITE BLOOD COUNT 8.7 10^3/uL (4.0-10.5)
[2018-12-30 06:25] LABS: ALANINE AMINOTRANSFERASE 20 U/L (21-72); ALBUMIN 3.2 g/dL (3.5-5.0); ALKALINE PHOSPHATASE 81 U/L (38-126); ANION GAP 13 (5-19); ASPARTATE AMINO TRANSFERASE 20 U/L (17-59); BILIRUBIN,DIRECT 0.7 mg/dL (0.0-0.4); BILIRUBIN,TOTAL 1.3 mg/dL (0.2-1.3); BLOOD UREA NITROGEN 46 mg/dL (7-20); CALCIUM 9.1 mg/dL (8.4-10.2); CARBON DIOXIDE 34 mmol/L (22-30); CHLORIDE 101 mmol/L (98-107); GLUCOSE 119 mg/dL (75-110); POTASSIUM 3.2 mmol/L (3.6-5.0); TOTAL PROTEIN 5.7 g/dL (6.3-8.2)
[2018-12-30] MEDS: INSULIN LISPRO 100 UNIT/ML 3 ML VIAL SUBCUT SCH ×4 (08:12→22:40)
[2018-12-30] MEDS: AMIODARONE HCL 200 MG TABLET NG SCH (09:34)
[2018-12-30] MEDS: CARVEDILOL 12.5 MG TABLET NG SCH ×2 (09:34→22:43)
[2018-12-30] MEDS: POTASSIUM CHLORIDE 20 MEQ PACKET NG SCH ×3 (09:34→17:00)
[2018-12-30] MEDS: ASPIRIN 325 MG TABLET NG SCH (09:35)
[2018-12-30] MEDS: FUROSEMIDE INJ/PF 40 MG/4 ML SDV IV SCH (09:35)
[2018-12-30] MEDS: SACUBITRIL/VALSARTAN 97 MG/103 MG TABLET NG SCH ×2 (09:35→22:43)
--- NOTE | 2018-12-30 12:02 | PDOC PROGRESS REPORT ---
Subjective Progress Note for:: 12/30/18 Subjective:: I have seen the patient early during admission for chronic kidney disease stage III but at that time patient's kidney function has gone back to his baseline kidney function. Patient came in with respiratory failure and congestive heart failure requiring intubation. Patient was successfully extubated and now currently transferred to [facility]. He is now a DO NOT RESUSCITATE. Since then the patient was aggressively diuresis with a maximum Lasix of 40 mg IV every 12 hours. His BNP remains to be elevated at 58,000 from 21,000. Since then his kidney function has slowly gotten worse for the last few days. He continues to make urine. Post extubation the patient has trouble with speech and is currently nonverbal. His son, Ac was at bedside when I saw him today and tells me that prior to this admission the patient can communicate very well without any problems. When I asked him how is doing he puts his thumbs up since he cannot talk. He denies any shortness of breath nor chest pains. Reason For Visit: ACUTE RESPIRATORY FAILURE,ARF,PNEUMONIA Physical Exam Vital Signs: Temp Pulse Resp BP Pulse Ox 99.2 F 65 16 133/55 H 94 12/30/18 07:40 12/30/18 07:40 12/30/18 07:40 12/30/18 07:40 12/30/18 09:54 Intake & Output 12/29/18 12/30/18 12/31/18 06:59 06:59 06:59 Intake Total 400 260 120 Output Total 2635 1480 Balance -2235 -1220 120 Weight 95.3 kg 95.1 kg Exam: General appearance: PRESENT: no acute distress, cooperative, well-developed, well-nourished Head exam: PRESENT: atraumatic, normocephalic Eye exam: PRESENT: conjunctiva pale, PERRLA. ABSENT: scleral icterus Neck exam: ABSENT: JVD Respiratory exam: PRESENT: Normal breath sounds. ABSENT: crackles, rales, rhonchi, unlabored, wheezes Cardiovascular exam: PRESENT: Regular rate rhythm -+S1, +S2. ABSENT: diastolic murmur, systolic murmur GI/Abdominal exam: PRESENT: normal bowel sounds, soft. ABSENT: guarding, mass, tenderness Extremities exam: He has left upper extremity edema where he had IV sites and grade 2 bilateral lower extremity pitting edema Neurological exam: PRESENT: alert, awake, nonverbal. Skin exam: PRESENT: dry, warm, Results Laboratory Results: 12/30/18 05:13 12/30/18 05:13 12/30/18 12/30/18 05:13 05:13 WBC 8.7 RBC 3.63 L Hgb 9.6 L Hct 29.2 L MCV 81 MCH 26.4 L MCHC 32.8 RDW 19.0 H Plt Count 121 L Seg Neutrophils % 85.7 H Lymphocytes % 6.0 L Monocytes % 7.1 Eosinophils % 0.5 Basophils % 0.7 Absolute Neutrophils 7.5 Absolute Lymphocytes 0.5 Absolute Monocytes 0.6 Absolute Eosinophils 0.0 Absolute Basophils 0.1 Sodium 148.0 H Potassium 3.2 L Chloride 101 Carbon Dioxide 34 H Anion Gap 13 BUN 46 H Creatinine 1.92 H Est GFR ( Amer) 40 L Est GFR (Non-Af Amer) 33 L Glucose 119 H Calcium 9.1 Magnesium 2.1 Total Bilirubin 1.3 AST 20 ALT 20 L Alkaline Phosphatase 81 Total Protein 5.7 L Albumin 3.2 L 12/18/18 12/19/18 12/19/18 22:35 01:10 12:04 Creatine Kinase < 20 L CK-MB (CK-2) Troponin I 0.183 0.181 NT-Pro-B Natriuret Pep 12/19/18 12/19/18 12/19/18 12:04 17:42 17:42 Creatine Kinase < 20 L CK-MB (CK-2) 0.84 0.59 Troponin I 0.107 0.095 NT-Pro-B Natriuret Pep 12/19/18 12/19/18 12/23/18 23:26 23:26 03:33 Creatine Kinase < 20 L CK-MB (CK-2) 0.67 Troponin I 0.093 2.060 NT-Pro-B Natriuret Pep [id number] H 12/30/18 05:13 Creatine Kinase CK-MB (CK-2) Troponin I NT-Pro-B Natriuret Pep [id number] H Impressions: KUB X-Ray 12/23/18 00:00 IMPRESSION: Nasogastric tube tip in the stomach. Assessment & Plan - Diagnosis (1) Acute kidney injury superimposed on chronic kidney disease Is this a current diagnosis for this admission?: Yes Plan: Acute worsening of kidney function is most likely secondary to prerenal factors with rapid diuresis. Agree with decreasing the dose of Lasix. Discussed with Dr. Diaz. If the patient's kidney function continued to get worse we might actually hold her Lasix for a day or 2 to give time for the kidneys to recover. Avoid further nephrotoxic medications. Monitor kidney function and electroly justin.. (2) Chronic kidney disease, stage III (moderate) Is this a current diagnosis for this admission?: Yes Plan: Likely secondary to underlying diabetes, hypertension and cardiac disease. (3) Hypernatremia Is this a current diagnosis for this admission?: Yes Plan: This is related to patient becoming intravascularly depleted due to rapid diuresis with furosemide. Lasix dose decreased. (4) Hypokalemia Is this a current diagnosis for this admission?: Yes Plan: Diuretic induced. Replace as necessary. (5) Anemia Is this a current diagnosis for this admission?: Yes (6) Congestive heart failure Is this a current diagnosis for this admission?: Yes (7) Acute hypercapnic respiratory failure Is this a current diagnosis for this admission?: Yes (8) Pneumonia Is this a current diagnosis for this admission?: Yes - Notes Notes: Assessment and recommendation discussed with patient and his son Ac at bedside. - Time Time with patient: 15-25 minutes
--- NOTE | 2018-12-30 12:20 | RADIOLOGY REPORT (SQ) ---
EXAM DESCRIPTION: CHEST SINGLE VIEW COMPLETED DATE/TIME: 12/30/2018 8:47 am REASON FOR STUDY: shortness of breath COMPARISON: 12/28/2018 TECHNIQUE: Single frontal radiographic view of the chest acquired. NUMBER OF VIEWS: One view. LIMITATIONS: None. FINDINGS: LUNGS AND PLEURA: No pneumothorax. Increased bibasilar airspace disease and pleural effusi ons. MEDIASTINUM AND HILAR STRUCTURES: Stable. HEART AND VASCULAR STRUCTURES: Stable. BONES: No acute findings. HARDWARE: CABG. Cardiac defibrillator. OTHER: No other significant finding. IMPRESSION: Increased bibasilar airspace disease and pleural effusions. TECHNICAL DOCUMENTATION: JOB ID: [id number] 2010 [employer]- All Rights Reserved Reading location - IP/workstation name: [email or web address]
[2018-12-31] MEDS: HEPARIN SOD (PORCINE) 5,000 UNIT/ML 1 ML SYRINGE SUBCUT SCH ×3 (05:55→22:41)
[2018-12-31 06:06] LABS: ABSOLUTE EOSINOPHILS # (AUTO) 0.1 10^3/uL (0.0-0.6); ABSOLUTE LYMPHOCYTES (AUTO) 0.6 10^3/uL (0.5-4.7); ABSOLUTE MONOCYTES (AUTO) 0.5 10^3/uL (0.1-1.4); ABSOLUTE NEUT (AUTO) 6.2 10^3/uL (1.7-8.2); BASOPHILS % (AUTO) 0.5 % (0-2); EOSINOPHILS % (AUTO) 1.1 % (0-6); HEMATOCRIT 30.3 % (37.9-51.0); HEMOGLOBIN 9.7 g/dL (13.5-17.0); LYMPHOCYTES % (AUTO) 7.7 % (13-45); MEAN CORPUSCULAR HEMOGLOBIN 25.9 pg (27.0-33.4); MEAN CORPUSCULAR HGB CONC 32.1 g/dL (32.0-36.0); MEAN CORPUSCULAR VOLUME 81 fl (80-97); MONOCYTES % (AUTO) 6.9 % (3-13); PLATELET COUNT 119 10^3/uL (150-450); RED BLOOD COUNT 3.75 10^6/uL (4.35-5.55); RED CELL DISTRIBUTION WIDTH 18.5 % (11.5-14.0); SEGMENTED NEUTROPHILS % (AUTO) 83.8 % (42-78); TOTAL CELLS COUNTED % (AUTO) 100 %; WHITE BLOOD COUNT 7.4 10^3/uL (4.0-10.5)
[2018-12-31 06:14] LABS: ALANINE AMINOTRANSFERASE 19 U/L (21-72); ALBUMIN 3.2 g/dL (3.5-5.0); ALKALINE PHOSPHATASE 82 U/L (38-126); ANION GAP 9 (5-19); ASPARTATE AMINO TRANSFERASE 24 U/L (17-59); BILIRUBIN,DIRECT 0.5 mg/dL (0.0-0.4); BILIRUBIN,TOTAL 1.1 mg/dL (0.2-1.3); BLOOD UREA NITROGEN 53 mg/dL (7-20); CALCIUM 8.9 mg/dL (8.4-10.2); CARBON DIOXIDE 38 mmol/L (22-30); CHLORIDE 103 mmol/L (98-107); GLUCOSE 140 mg/dL (75-110); SODIUM 149.7 mmol/L (137-145); TOTAL PROTEIN 5.8 g/dL (6.3-8.2)
[2018-12-31] MEDS: INSULIN LISPRO 100 UNIT/ML 3 ML VIAL SUBCUT SCH ×4 (07:51→22:41)
[2018-12-31] MEDS: POTASSIUM CHLORIDE 20 MEQ/50 ML RTU IV SCH ×2 (07:52→10:34)
--- NOTE | 2018-12-31 09:13 | ST Inp Modified Barium Swallow ---
Medical Diagnosis - Medical Diagnoses Medical Diagnosis Description & ICD-10 Code(s): pneumonia - ICD-10 Tx Diagnosis Coding (1) Dysphagia ICD-10 Code(s): R13.10 - DYSPHAGIA, UNSPECIFIED ST Inpatient MBS - General Date: 12/31/18 Date of Onset: 12/27/18 - History -: Medical - per EMR: patient admitted 12/19 with altered mental status, was intuated in the ED, extubated 12/27. Prior medical history includes CAD, CHF, atrial fibrillation, stage 4 CKD, patient resident of SNF. Per physician order for bedside evaluation, patient is having "difficulty swallowing, coughing after drinking". Patient seen at bedside on 12/30, patient showed obvious signs of aspiration with thin liquid trials. Copious amounts of pocketing from his breakfast tray were also noted and removed from his mouth. MBSS was recommended as well as nectar thick liquids at that time. Medications: Medications Reviewed Allergies: Refer to medical record - Subjective Current Nutritional Means: PO Current PO Diet: Pureed, Thickened liquids - nectar Current Symptoms: Coughing, Pneumonia Pain: Patient reports, no signs/symptoms of pain - Objective Assessment: Upright, Left Lateral - Food Trials Food Trials Used: Thin liquids - presented by spoon, Honey-thickened liquids - presented by cup, [place] thick liquids - presented by cup, Pureed - presented by spoon The Patient: fed by ST, via cup, via spoon - Assessment Labial Function: Within Normal Limits Mandibular Function: Within Functional Limits Dentition: Edentulous Velo-Pharyngeal Function: Unremarkable Laryngeal Function: Weak Cough, weak voicing - Pharyngeal Stage Initiation of Pharyngeal Stage: Delayed - swallow triggered at valleculae of pyriform sinus Decreased Laryngeal Elevation: Yes Reduced Velo-Pharyngeal Closure: no Reduced Pressure Generation: Yes Reduced Tongue Base Retraction: Yes Pre-Swallowing Pooling in Valleculae: Moderate Pre-Swallowing Pooling in Pyriforms: Mild Reduced Thyro-Hyiod Approximation: Yes Reduced Epiglottic Excursion: No Multiple Swallows With: Ineffective Clearance Post Swallow Residuals in Valleculae: Moderate Post Swallow Residuals in Pyriforms: Moderate Post Swallow Residuals: throughout pharynx Pahryngeal Stage Comments: Patient demonstrated incomplete closure of laryngeal vestibule due to reduced elevation of larynx on the swallow. This resulted in penetration and aspiration of multiple textures. Absent or weak cough reaction seen with these. Patient also demonstrated poor clearance of material from pharyngeal cavity due to reduced pharyngeal constriction. External cuing for additional swallows or "dry" swallows resulted in tongue pumping, but no true second swallow. Although patient did not aspirate the Honey liquids on this test, the patient held this texture orally for greater than 1 minute prior to initiating a swallow. The thicker liquid also resulted in additional pharyngeal residue, placing patient at higher risk of aspirating after the swallow. Patient was seen to cough at one point in the study, the coughing resulted in residue from the pyriform sinus to spill into the airway. - Impression/Summary Laryngeal Penetration: Yes - with thin, nectar, and residuals from other textures Tracheal Aspiration: yes - with thin liquid on the swallow, with nectar liquid after the swallow, high likelihood of aspiration of residuals from all textures Productive Cough: No Effective Clearing: no Patient Presents With: Oral-Pharyngeal dysph., Severe Risk of Aspiration: Severe Risk of Nutritional Compromise: Moderate Risk Due To: Patient is at risk of aspiration on all textures, either on the swallow, or due to residue after the swallow. Patient is at risk of nutritional compromise due to oral holding and prolonged time to eat/swallow multiple textures. Per physician note, the patient's family has stated that they do not want a PEG. Due to patient's overall status, PEG may not reduce risk of aspiration. Recommend PO diet of puree solids and nectar thick liquids. Patient is STILL AT RISK OF ASPIRATION on this diet, however, these textures are judged to be the safest PO diet at this time. - Recommendations Solid Diet Recommendations: Pureed Liquid Diet Recommendations: [place]-Thick Strict Aspitarion Precautions: Yes Dysphagia Therapy with TRUCK MECHANIC APPRENTICE: Follow Up PRN - will follow up x1 to see if patient is able to attend to skilled treatment Recommended Techniques: Fully Upright During Meal, Small Bites and Sips, e xternal pacing Supervision: requires assistance - Time Total Time: 30 Total Timed Minutes: 30
[2018-12-31] MEDS: POTASSIUM CHLORIDE 20 MEQ PACKET NG SCH ×3 (09:41→17:07)
[2018-12-31] MEDS: ASPIRIN 325 MG TABLET NG SCH (09:41)
[2018-12-31] MEDS: SACUBITRIL/VALSARTAN 97 MG/103 MG TABLET NG SCH ×2 (09:41→22:41)
[2018-12-31] MEDS: AMIODARONE HCL 200 MG TABLET NG SCH (09:41)
[2018-12-31] MEDS: FUROSEMIDE INJ/PF 40 MG/4 ML SDV IV SCH (09:41)
[2018-12-31] MEDS: CARVEDILOL 12.5 MG TABLET NG SCH ×2 (09:41→22:41)
[2018-12-31] MEDS ORDERED: DEXTROSE 5%-1/2 NORMAL SALINE 1,000 ML IV ONE (10:25)
--- NOTE | 2018-12-31 10:35 | RADIOLOGY REPORT (SQ) ---
EXAM DESCRIPTION: JULIÁN SWALLOW COMPLETED DATE/TIME: 12/31/2018 9:04 am REASON FOR STUDY: signs of aspiration post extubation COMPARISON: None. TECHNIQUE: Videofluoroscopic swallowing examination was performed in conjunction with speech patholo gy. Videofluoroscopic imaging was obtained and reviewed and these are the findings: RADIATION DOSE: Fluoro time 5.40 minutes 1 images saved to PACS. LIMITATIONS: None FINDINGS: The patient was brought into the fluoro room and placed upright on a modified barium swall ow chair. The patient was then given multiple consistencies mixed with barium to swallow under live fluoroscopic video guidance. According to the Speech Pathologist there was aspiration seen with thin and nectar thick consistencies. Laryngeal penetration was also seen from residuals. There is a del ay in swallow. Please refer to the speech pathology report for further details. IMPRESSION: ASPIRATION WITH THIN AND NECTAR THICK CONSISTENCIES. PLEASE SEE SPEECH PATHOLOGIST REPOR T FOR OTHER FINDINGS AND RECOMMENDATIONS. COMMENT: None Quality ID [id number]: Final reports for procedures using fluoroscopy that document radiation exposure nickie zuleyma, or exposure time and number of fluorographic images (if radiation exposure indices are not avail able) TECHNICAL DOCUMENTATION: JOB ID: [id number] [employer]- All Rights Reserved Reading location - IP/workstation name: [email or web address] [id number]
--- NOTE | 2018-12-31 10:37 | PDOC PROGRESS REPORT ---
Subjective Progress Note for:: 12/31/18 Subjective:: I saw the patient sleeping but arousable today. He still continues to have difficulty with his speech. He indicates that he is fine and able to verbalize any other complaints. He did modified barium swallow eval yesterday and recommendation was pured nectar but very high risk for aspiration. His nurse told me that the family does not want a PEG tube. Patient has adequate urine output at 1225 but intake is only 480 mL. Reason For Visit: ACUTE RESPIRATORY FAILURE,ARF,PNEUMONIA Physical Exam Vital Signs: Temp Pulse Resp BP Pulse Ox 97.5 F 61 20 145/62 H 100 12/31/18 08:05 12/31/18 08:05 12/31/18 08:05 12/31/18 08:05 12/31/18 08:05 Intake & Output 12/30/18 12/31/18 01/01/19 06:59 06:59 06:59 Intake Total 260 480 Output Total 1480 1225 Balance -1220 -745 Weight 95.1 kg 95.3 kg Exam: General appearance: PRESENT: no acute distress, cooperative, well-developed, well-nourished Head exam: PRESENT: atraumatic, normocephalic Eye exam: PRESENT: conjunctiva pale, PERRLA. ABSENT: scleral icterus Neck exam: ABSENT: JVD Respiratory exam: PRESENT: Diminished breath sounds. ABSENT: crackles, rales, rhonchi, unlabored, wheezes Cardiovascular exam: PRESENT: Regular rate rhythm -+S1, +S2. ABSENT: diastolic murmur, systolic murmur GI/Abdominal exam: PRESENT: normal bowel sounds, soft. ABSENT: guarding, mass, tenderness Extremities exam: Unchanged grade 2 bilateral lower extremity pitting edema, left upper extremity edema Neurological exam: PRESENT: Sleeping but arousable, has difficulty with speech. Skin exam: PRESENT: dry, warm, Results Laboratory Results: 12/31/18 05:17 12/31/18 05:17 12/31/18 12/31/18 05:17 05:17 WBC 7.4 RBC 3.75 L Hgb 9.7 L Hct 30.3 L MCV 81 MCH 25.9 L MCHC 32.1 RDW 18.5 H Plt Count 119 L Seg Neutrophils % 83.8 H Lymphocytes % 7.7 L Monocytes % 6.9 Eosinophils % 1.1 Basophils % 0.5 Absolute Neutrophils 6.2 Absolute Lymphocytes 0.6 Absolute Monocytes 0.5 Absolute Eosinophils 0.1 Absolute Basophils 0.0 Sodium 149.7 H Potassium 3.0 L* Chloride 103 Carbon Dioxide 38 H Anion Gap 9 BUN 53 H Creatinine 2.02 H Est GFR ( Amer) 38 L Est GFR (Non-Af Amer) 31 L Glucose 140 H Calcium 8.9 Magnesium 2.2 Total Bilirubin 1.1 AST 24 ALT 19 L Alkaline Phosphatase 82 Total Protein 5.8 L Albumin 3.2 L 12/18/18 12/19/18 12/19/18 22:35 01:10 12:04 Creatine Kinase < 20 L CK-MB (CK-2) Troponin I 0.183 0.181 NT-Pro-B Natriuret Pep 12/19/18 12/19/18 12/19/18 12:04 17:42 17:42 Creatine Kinase < 20 L CK-MB (CK-2) 0.84 0.59 Troponin I 0.107 0.095 NT-Pro-B Natriuret Pep 12/19/18 12/19/18 12/23/18 23:26 23:26 03:33 Creatine Kinase < 20 L CK-MB (CK-2) 0.67 Troponin I 0.093 2.060 NT-Pro-B Natriuret Pep 14569 H 12/30/18 12/31/18 05:13 05:17 Creatine Kinase CK-MB (CK-2) Troponin I NT-Pro-B Natriuret Pep 69888 H 71228 H Impressions: KUB X-Ray 12/23/18 00:00 IMPRESSION: Nasogastric tube tip in the stomach. Chest X-Ray 12/30/18 00:00 IMPRESSION: Increased bibasilar airspace disease and pleural effusions. Assessment & Plan - Diagnosis (1) Acute kidney injury superimposed on chronic kidney disease Is this a current diagnosis for this admission?: Yes Plan: Acute worsening of kidney function is most likely secondary to prerenal factors with rapid diuresis. Will discontinue Lasix today. I will give him a liter of D5 0.45 at 100 mL an hour. Avoid further nephrotoxic medications. Monitor kidney function and electrolytes. Discussed with Dr. Koehler. (2) Chronic kidney disease, stage III (moderate) Is this a current diagnosis for this admission?: Yes Plan: Likely secondary to underlying diabetes, hypertension and cardiac disease. (3) Hypernatremia Is this a current diagnosis for this admission?: Yes Plan: This is related to patient becoming intravascularly depleted due to rapid diuresis with furosemide. Discontinue Lasix and give D5 0.45 as above. (4) Hypokalemia Is this a current diagnosis for this admission?: Yes Plan: Diuretic induced. Replace as necessary. (5) Anemia Is this a current diagnosis for this admission?: Yes Plan: Check iron profile. (6) Congestive heart failure Is this a current diagnosis for this admission?: Yes Plan: BNP still elevated but clinically improved from admission. Will hold diuresis for now in view of worsening kidney function and hypernatremia. (7) Acute hypercapnic respiratory failure Is this a current diagnosis for this admission?: Yes Plan: Improved. (8) Pneumonia Is this a current diagnosis for this admission?: Yes - Time Time with patient: 15-25 minutes
[2018-12-31] MEDS ORDERED: POTASSI CL 20 MEQ/50 ML RIDER 20 MEQ/50 ML RTUPB IV ONE (13:00)
--- NOTE | 2018-12-31 17:15 | PDOC PROGRESS REPORT ---
Subjective Progress Note for:: 12/31/18 Subjective:: SOHAIL GALVAN is a 88 year old male past medical history of coronary artery disease, congestive heart failure, atrial fibrillation, status post permanent pacemaker and AICD and stage IV chronic kidney disease. Patient presents from snf with sudden onset difficulty with breathing and altered mental status, EMS find some and severe shortness of breath with faint pulses and initiate atropine and placed him on CPAP. Mental status briefly improved he denied pain but failed trial of BiPAP with ABG showing worsening hypercapnia and he was intubated by the emergency room provider. His work-up show hypercapnic respiratory failure, positive troponin of 0.18, hypercapnia 5.4, EKG is in dual paced rhythm. 12/31/2018. No acute events overnight, patient did not pass barium swallow eval. Somnolent but arousable to verbal stimuli. Only oriented to person, does not communicate any symptoms. Patient's daughter who is in the room has been discussing with family for possible transition of patient to inpatient hospice. Reason For Visit: ACUTE RESPIRATORY FAILURE,ARF,PNEUMONIA Physical Exam Vital Signs: Temp Pulse Resp BP Pulse Ox 98.4 F 60 21 H 136/62 H 100 12/31/18 15:03 12/31/18 15:03 12/31/18 15:03 12/31/18 15:03 12/31/18 15:03 Intake & Output 12/30/18 12/31/18 01/01/19 06:59 06:59 06:59 Intake Total 260 480 75 Output Total 1480 1225 125 Balance -1220 -745 -50 Weight 95.1 kg 95.3 kg General appearance: PRESENT: no acute distress, well-developed, well-nourished Head exam: PRESENT: atraumatic, normocephalic Respiratory exam: PRESENT: clear to auscultation galo, rhonchi, wheezes. ABSENT: rales Cardiovascular exam: PRESENT: RRR. ABSENT: diastolic murmur, rubs, systolic murmur Neurological exam: PRESENT: awake, oriented to person Results Laboratory Results: 12/31/18 05:17 12/31/18 05:17 12/31/18 12/31/18 05:17 05:17 WBC 7.4 RBC 3.75 L Hgb 9.7 L Hct 30.3 L MCV 81 MCH 25.9 L MCHC 32.1 RDW 18.5 H Plt Count 119 L Seg Neutrophils % 83.8 H Lymphocytes % 7.7 L Monocytes % 6.9 Eosinophils % 1.1 Basophils % 0.5 Absolute Neutrophils 6.2 Absolute Lymphocytes 0.6 Absolute Monocytes 0.5 Absolute Eosinophils 0.1 Absolute Basophils 0.0 Sodium 149.7 H Potassium 3.0 L* Chloride 103 Carbon Dioxide 38 H Anion Gap 9 BUN 53 H Creatinine 2.02 H Est GFR ( Amer) 38 L Est GFR (Non-Af Amer) 31 L Glucose 140 H Calcium 8.9 Magnesium 2.2 Total Bilirubin 1.1 AST 24 ALT 19 L Alkaline Phosphatase 82 Total Protein 5.8 L Albumin 3.2 L 12/18/18 12/19/18 12/19/18 22:35 01:10 12:04 Creatine Kinase < 20 L CK-MB (CK-2) Troponin I 0.183 0.181 NT-Pro-B Natriuret Pep 12/19/18 12/19/18 12/19/18 12:04 17:42 17:42 Creatine Kinase < 20 L CK-MB (CK-2) 0.84 0.59 Troponin I 0.107 0.095 NT-Pro-B Natriuret Pep 12/19/18 12/19/18 12/23/18 23:26 23:26 03:33 Creatine Kinase < 20 L CK-MB (CK-2) 0.67 Troponin I 0.093 2.060 NT-Pro-B Natriuret Pep [id number] H 12/30/18 12/31/18 05:13 05:17 Creatine Kinase CK-MB (CK-2) Troponin I NT-Pro-B Natriuret Pep 42195 H 30951 H Impressions: KUB X-Ray 12/23/18 00:00 IMPRESSION: Nasogastric tube tip in the stomach. Chest X-Ray 12/30/18 00:00 IMPRESSION: Increased bibasilar airspace disease and pleural effusions. Modified Barium Swallow 12/31/18 00:00 IMPRESSION: ASPIRATION WITH THIN AND NECTAR THICK CONSISTENCIES. PLEASE SEE SPEECH PATHOLOGIST REPORT FOR OTHER FINDINGS AND RECOMMENDATIONS. Assessment and Plan - Diagnosis (1) Acute hypercapnic respiratory failure Is this a current diagnosis for this admission?: Yes Plan: 12/24/2018-patient admitted with acute hypercapnic respiratory failure most likely secondary to underlying pneumonia and acute on chronic systolic heart failure. Patient is presently intubated on IV antibiotic therapy plan to extubate him today. 12/25/2018-patient admitted with acute respiratory failure with hypoxia and hypercapnia we will try to wean him off today. He is off the Versed drip. ABG this morning pH is 7.43 PCO2 44 PO2 76 bicarb is 29 oxygen saturation is 95% on 30% oxygen. Chest x-ray more opinion may have right-sided pneumonia he is getting IV cefepime azithromycin and vancomycin plan is to discontinue cephapirin from today. Wound culture came back skin lola. Afebrile for the last 72 hours. tracheal aspirate came back positive for H. influenzae. 12/26/2018-patient admitted with acute respiratory failure with hypoxia and hypercapnia on mechanical ventilation he is ABG this morning pH is 7.45 PCO2 42 PO2 68 bicarb is 28 oxygen saturation is 94% on 30% oxygen. He is off the s edation since yesterday plan to wean him off today. Chest x-ray did not show any acute pathology today. 12/27/[id number]-tupc-old male admitted with acute on chronic respiratory failure with hypoxia most likely secondary to exacerbation of CHF and pneumonia plan is to extubate him today. 12/28/[id number]-yijv-old male admitted with acute on chronic respiratory failure with hypoxia most likely secondary to CHF exacerbation and underlying pneumonia. Patient was successfully extubated. No complications after the extubation. 12/29/[id number]-mhfp-old male admitted with acute on chronic respiratory failure tracheal aspirate cultures are positive for H. influenzae he completed the antibiotic course. He is afebrile. (2) Atrial fibrillation with RVR Is this a current diagnosis for this admission?: Yes Plan: Patient has been on amiodarone. 12/24/2018-patient came in with A. fib with RVR initially on amiodarone drip presently receiving amiodarone via NG tube. Heart rate is relatively controlled 64. Plan is to continue the present management. Likely has a paroxysmal atrial fibrillation. 12/25/2018-patient admitted with A. fib with RVR initially amiodarone drip now he is on amiodarone 200 mg p.o. twice daily he is also on Coreg at home which was restarted heart rate is 60 in sinus rhythm. 12/26/2018-patient admitted with A. fib with RVR initially on amiodarone drip presently on amiodarone 200 mg p.o. daily and Coreg 12.5 mg p.o. twice daily heart rate is 60 2E has a pacemaker defibrillator. Heart rate today 62 well-controlled. 12/27/2018-patient admitted with atrial fibrillation RVR on amiodarone 200 mg p.o. twice daily and Coreg 12.5 mg p.o. twice daily plan is to continue the present management heart rate is 61. 12/28/2018-patient admitted with atrial fibrillation with rapid ventricular rate initially on amiodarone drip now he is on amiodarone 200 mg p.o. daily and is also on Coreg 12.5 mg twice a day. Latest heart rate is 63. Well controlled. 12/29/2018-patient admitted with atrial fibrillation with rapid ventricular rate presently on amiodarone 100 mg p.o. daily and Coreg 12.5 mg p.o. twice daily. Latest heart rate is 82. (3) Chronic kidney disease, stage III (moderate) Is this a current diagnosis for this admission?: Yes Plan: 12/24/2018-patient's creatinine is 1.39 patient has a chronic kidney disease his baseline creatinine is around 1.4. 12/25/2018-serum creatinine is 1.32 baseline creatinine is 1.4. Urinary output is 2.4 L. Continue to closely monitor his creatinine. 12/26/2018-patient creatinine yesterday is 1.32 his baseline creatinine is around 1.4 today's labs are pending. 12/27/2018-patient serum creatinine today is 1.45, baseline creatinine is around 1.4 plan is to continue his IV Lasix twice a day. 12/28/2018-patient creatinine is 1.51 slightly elevated compared to yesterday. Patient has stage III kidney disease urinary output is excellent. 12/29/2018-patient creatinine today 1.7, yesterday it was 1.5. On Lasix 40 mg twice daily plan is to decrease the Lasix to 40 mg daily and continue the potassium supplementation. Upper and lower extremities still edematous. He is on fluid restriction. 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 Patient is not in fluid overload. Well compensated at this time. 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 Patient is on IV Lasix 20 mg every 12 hours plan is to increase the Lasix to 40 every 12 and I will give albumin. Urinary output is 2.4 L yesterday with a negative fluid balance of 1700 mL. 12/26/2018-patient is on Lasix 40 mg IV twice a day and he has history of chronic systolic heart failure urinary output is good still have 2+ pedal edema involving the upper and lower extremities presently on Lasix 40 mg every 12 hours he received IV albumin last night. Urinary output is 2.4 L yesterday with negative fluid balance of 1750. To give another albumin supplementation today. 12/27/2018-chest x-ray indicates improving pulmonary edema and upper extremity lo wer extremity swelling is improved also present on Lasix 40 mg IV twice daily urinary output is 3.1 L with a negative fluid balance of 2.4 L. 12/28/2018-chest x-ray shows small left pleural effusion and pacemaker in place. Still have upper and lower extremity edema improving. Lower extremity edema is 2+. On IV Lasix 40 mg twice a day. 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 12/29/2018-post extubation chest x-ray stable. On examination still have upper and lower extremity edema present. Present on Lasix 40 mg IV twice daily creatinine is gradually worsening and it is 1.7 today. Plan is to discontinue Lasix to once a day and continue potassium supplementation 40 mg twice daily. pt CODE STATUS is DNR/DNI. (5) HTN (hypertension) Is this a current diagnosis for this admission?: No Plan: 12/25/2018-patient blood pressure today is 172/65. Plan is to discontinue IV fluids and increase the Lasix to 40 twice a day and plan to give albumin. To closely monitor his blood pressures. 3+ edema is noted in the lower extremities. 12/26/2018-patient blood pressure today is 172/90 presently on Lasix 40 mg IV twice daily, Coreg 12.5 mg twice a day, Entresto. Plan is to continue the present management and is on hydralazine 10 mg every 4 PRN for blood pressure more than 150. 12/27/2018-blood pressure today is 162/90 improved from yesterday presently on IV Lasix 40 mg twice a day, Coreg 12.5 mg p.o. twice daily, Entresto twice a day. He is also on hydralazine 10 mg IV every 4 as needed for blood pressure. 12/28/2018-patient blood pressure today is 136/75. Stable. 12/29/2018-patient blood pressure this morning 138/54 stable. (6) Hyperkalemia Is this a current diagnosis for this admission?: Yes Plan: Lactulose trial, follow-up chemistry (7) Pneumonia Is this a current diagnosis for this admission?: Yes Plan: Bilateral infiltrate, empiric antibiotics, follow-up CBC and blood culture 12/24/2018-patient came in with healthcare associated pneumonia tracheal aspirate positive for H influenza presently on azithromycin, cefepime. vancomycin. Afebrile. WBC count is 6.9. Plan is to continue the present management. 12/25/2018-patient came in with healthcare associated pneumonia, tracheal aspirate positive for H influenza on azithromycin ,cefepime and vancomycin 12/26/2018-patient admitted with healthcare associated pneumonia, tracheal aspirate positive for H influenza presently is on azithromycin and vancomycin. a Febrile for the last several days. Plan is to complete the antibiotic course. 12/27/2018-patient is presently on azithromycin and vancomycin. Chest x-ray this morning did not suggestive of any pneumonia tracheal aspirate positive for H influenza will complete the antibiotic course. 12/28/2018-tracheal aspirate shows H influenza presently on azithromycin and vancomycin patient is afebrile plan is to discontinue the antibiotics. 12/29/2018-patient most likely admitted for hospital healthcare associated pneumonia treated with antibiotic therapy presently afebrile tracheal aspirate shows H. influenzae. Patient is on azithromycin, vancomycin and cefepime for last several days those medications are discontinued 48 hours ago. (8) Thrombocytopenia Is this a current diagnosis for this admission?: Yes Plan: Unclear etiology.
[2018-12-31] MEDS ORDERED: METRONIDAZOLE 500 MG/NS RTU 500 MG/100 ML RTUPB IV SCH (18:00)
[2019-01-01 05:12] LABS: ABSOLUTE BASOPHILS # (AUTO) 0.1 10^3/uL (0.0-0.2); ABSOLUTE EOSINOPHILS # (AUTO) 0.1 10^3/uL (0.0-0.6); ABSOLUTE LYMPHOCYTES (AUTO) 0.6 10^3/uL (0.5-4.7); ABSOLUTE MONOCYTES (AUTO) 0.6 10^3/uL (0.1-1.4); ABSOLUTE NEUT (AUTO) 7.4 10^3/uL (1.7-8.2); ABSOLUTE RETICS # 0.035 10^6/uL (0.028-0.122); BASOPHILS % (AUTO) 0.6 % (0-2); EOSINOPHILS % (AUTO) 1.5 % (0-6); HEMOGLOBIN 9.9 g/dL (13.5-17.0); LYMPHOCYTES % (AUTO) 6.6 % (13-45); MEAN CORPUSCULAR HGB CONC 31.9 g/dL (32.0-36.0); MEAN CORPUSCULAR VOLUME 82 fl (80-97); PLATELET COUNT 124 10^3/uL (150-450); RED BLOOD COUNT 3.81 10^6/uL (4.35-5.55); RED CELL DISTRIBUTION WIDTH 19.1 % (11.5-14.0); RETICULOCYTE COUNT (AUTO) 0.91 % (0.66-2.85); SEGMENTED NEUTROPHILS % (AUTO) 84.3 % (42-78); TOTAL CELLS COUNTED % (AUTO) 100 %; WHITE BLOOD COUNT 8.8 10^3/uL (4.0-10.5)
[2019-01-01 05:30] LABS: ANION GAP 6 (5-19); BLOOD UREA NITROGEN 53 mg/dL (7-20); CARBON DIOXIDE 39 mmol/L (22-30); CHLORIDE 107 mmol/L (98-107); GLUCOSE 128 mg/dL (75-110); IRON(TIBC) 28.2 ug/dL (49-181); PHOSPHORUS 3.2 mg/dL (2.5-4.5); POTASSIUM 3.4 mmol/L (3.6-5.0); SODIUM 152.2 mmol/L (137-145)
[2019-01-01] MEDS: HEPARIN SOD (PORCINE) 5,000 UNIT/ML 1 ML SYRINGE SUBCUT SCH ×2 (06:13→13:16)
[2019-01-01 06:36] LABS: FOLATE 7.91 ng/mL (>2.76)
[2019-01-01] MEDS: INSULIN LISPRO 100 UNIT/ML 3 ML VIAL SUBCUT SCH ×2 (08:43→11:35)
[2019-01-01] MEDS: POTASSIUM CHLORIDE 20 MEQ PACKET NG SCH ×2 (09:45→13:17)
[2019-01-01] MEDS: ASPIRIN 325 MG TABLET NG SCH (09:45)
[2019-01-01] MEDS: SACUBITRIL/VALSARTAN 97 MG/103 MG TABLET NG SCH (09:45)
[2019-01-01] MEDS: AMIODARONE HCL 200 MG TABLET NG SCH (09:45)
[2019-01-01] MEDS: CARVEDILOL 12.5 MG TABLET NG SCH (09:45)
[2019-01-01 12:05] VITALS: BP 146/65
[2019-01-01] MEDS ORDERED: MORPHINE SULFATE 10 MG/ML INJ IV PRN (12:35)
[2019-01-01] MEDS ORDERED: LORAZEPAM INJ 2 MG/1 ML VIAL IV PRN (12:36)
--- NOTE | 2019-01-01 15:07 | PDOC TRANSFER SUMMARY ---
General - Admit/Disc Date/PCP Admission Date/Primary Care Provider: 12/19/18 02:42 WENDY DOUGLASS MD Discharge Date: 01/01/19 - Discharge Diagnosis (1) Comfort measures only status Is this a current diagnosis for this admission?: Yes (2) Dysphagia Is this a current diagnosis for this admission?: Yes (3) Acute hypercapnic respiratory failure Is this a current diagnosis for this admission?: Yes (4) Atrial fibrillation with RVR Is this a current diagnosis for this admission?: Yes (5) Chronic kidney disease, stage III (moderate) Is this a current diagnosis for this admission?: Yes (6) Congestive heart failure Is this a current diagnosis for this admission?: Yes (7) HTN (hypertension) Is this a current diagnosis for this admission?: Yes (8) Hyperkalemia Is this a current diagnosis for this admission?: Yes (9) Pneumonia Is this a current diagnosis for this admission?: Yes (10) Thrombocytopenia Is this a current diagnosis for this admission?: Yes (11) Acute encephalopathy Is this a current diagnosis for this admission?: Yes - Additional Information Resuscitation Status: Do Not Resuscitate Discharge Diet: As Tolerated Discharge Activity: Activity As Tolerated, Slowly Increase Activity, Weigh Daily Home Medications: Acetaminophen [Tylenol 325 mg Tablet] 650 mg PO Q4HP PRN 12/19/18 Aspirin [Ecotrin 81 mg EC Tablet] 81 mg PO DAILY 12/19/18 Carvedilol [Coreg 25 mg Tablet] 25 mg PO Q12 12/19/18 Docusate Sodium [Colace 100 mg Capsule] 100 mg PO BID 12/19/18 Furosemide [Lasix 20 mg Tablet] 20 mg PO DAILY 12/19/18 Insulin Lispro [Humalog Insulin 100 Unit/1 ml 3 ml Vial] 0 unit SUBCUT .SLD SCALE 12/19/18 Ipratropium/Albuterol Sulfate [Duoneb 3 ml Ampul] 3 ml NEB RTQ6HP PRN 12/19/18 Mag Hydrox/Al Hydrox/Simeth [Maalox Plus Susp 30 Udcup] 30 ml PO Q6HP PRN 12/19/18 Magnesium Hydroxide [Milk of Magnesia 30 ml Udcup] 30 ml PO ASDIR PRN 12/19/18 Potassium Chloride [Klor-Con M20] 20 meq PO DAILY 12/19/18 Sacubitril/Valsartan [Entresto 97 mg/103 mg Tablet] 1 tab PO Q12 12/19/18 History of Present Illness Admission Date/PCP: 12/19/18 02:42 WENDY DOUGLASS MD History of Present Illness: SOHAIL GALVAN is a 88 year old male Hospital Course Hospital Course: SOHAIL GALVAN is a 88 year old male past medical history of coronary artery disease, congestive heart failure, atrial fibrillation, status post permanent p acemaker and AICD and stage IV chronic kidney disease. Patient presents from intermediate with sudden onset difficulty with breathing and altered mental status, EMS find some and severe shortness of breath with faint pulses and initiate atropine and placed him on CPAP. Mental status briefly improved he denied pain but failed trial of BiPAP with ABG showing worsening hypercapnia and he was intubated by the emergency room provider. His work-up show hypercapnic respiratory failure, positive troponin of 0.18, hypercapnia 5.4, EKG is in dual paced rhythm. (1) Comfort measures only status Had a conversation over the phone with Sohail Galvan who is the POA and his younger brother who was present in the room. They have decided to transition care to inpatient hospice and meanwhile while waiting to be transferred to inpatient hospice they want to make him FAGOTER. (2) Dysphagia Most likely due to chronic left basal ganglia lacunar CVA. Failed barium swallow eval. Has been having recurrent history failure possibly due to recurrent aspiration pneumonia. Patient finally made does not want to pursue PEG tube placement. (3) Acute hypercapnic respiratory failure 12/24/2018-patient admitted with acute hypercapnic respiratory failure most likely secondary to underlying pneumonia and acute on chronic systolic heart failure. Patient is presently intubated on IV antibiotic therapy plan to extubate him today. 12/25/2018-patient admitted with acute respiratory failure with hypoxia and hypercapnia we will try to wean him off today. He is off the Versed drip. ABG this morning pH is 7.43 PCO2 44 PO2 76 bicarb is 29 oxygen saturation is 95% on 30% oxygen. Chest x-ray more opinion may have right-sided pneumonia he is getting IV cefepime azithromycin and vancomycin plan is to discontinue cephapirin from today. Wound culture came back skin lola. Afebrile for the last 72 hours. tracheal aspirate came back positive for H. influenzae. 12/26/2018-patient admitted with acute respiratory failure with hypoxia and hypercapnia on mechanical ventilation he is ABG this morning pH is 7.45 PCO2 42 PO2 68 bicarb is 28 oxygen saturation is 94% on 30% oxygen. He is off the sedation since yesterday plan to wean him off today. Chest x-ray did not show any acute pathology today. 12/27/[id number]-old male admitted with acute on chronic respiratory failure with hypoxia most likely secondary to exacerbation of CHF and pneumonia plan is to extubate him today. 12/28/[id number]-old male admitted with acute on chronic respiratory failure with hypoxia most likely secondary to CHF exacerbation and underlying pneumonia. Patient was successfully extubated. No complications after the extubation. 12/29/[id number]-[id number]-old male admitted with acute on chronic respiratory failure tracheal aspirate cultures are positive for H. influenzae he completed the antibiotic course. He is afebrile. 12/22/2018. Acute on chronic respiratory failure possibly due to recurrent aspiration pneumonia caused by dysphagia due to remote lacunar stroke. SPO2 7- 100% on 3-3.5 L NC RR 2023. Had a conversation over the phone with Sohail dominguez who is the POA and his younger brother who was present in the room. They have decided to transition care to inpatient hospice and meanwhile while waiting to be transferred to inpatient hospice they want to make him FAGOTER. (4) Atrial fibrillation with RVR Patient has been on amiodarone. 12/24/2018-patient came in with A. fib with RVR initially on amiodarone drip presently receiving amiodarone via NG tube. Heart rate is relatively controlled 64. Plan is to continue the present management. Likely has a paroxysmal atrial fibrillation. 12/25/2018-patient admitted with A. fib with RVR initially amiodarone drip now he is on amiodarone 200 mg p.o. twice daily he is also on Coreg at home which was restarted heart rate is 60 in sinus rhythm. 12/26/2018-patient admitted with A. fib with RVR initially on amiodarone drip presently on amiodarone 200 mg p.o. daily and Coreg 12.5 mg p.o. twice daily heart rate is 60 2E has a pacemaker defibrillator. Heart rate today 62 well- controlled. 12/27/2018-patient admitted with atrial fibrillation RVR on amiodarone 200 mg p.o . twice daily and Coreg 12.5 mg p.o. twice daily plan is to continue the present management heart rate is 61. 12/28/2018-patient admitted with atrial fibrillation with rapid ventricular rate initially on amiodarone drip now he is on amiodarone 200 mg p.o. daily and is also on Coreg 12.5 mg twice a day. Latest heart rate is 63. Well controlled. 12/29/2018-patient admitted with atrial fibrillation with rapid ventricular rate presently on amiodarone 100 mg p.o. daily and Coreg 12.5 mg p.o. twice daily. Latest heart rate is 82. 01/01/2019. Rate controlled. History of A. fib RVR on amiodarone and Coreg. Pulse 60s. (5) Chronic kidney disease, stage III (moderate) 12/24/2018-patient's creatinine is 1.39 patient has a chronic kidney disease his baseline creatinine is around 1.4. 12/25/2018-serum creatinine is 1.32 baseline creatinine is 1.4. Urinary output is 2.4 L. Continue to closely monitor his creatinine. 12/26/2018-patient creatinine yesterday is 1.32 his baseline creatinine is around 1.4 today's labs are pending. 12/27/2018-patient serum creatinine today is 1.45, baseline creatinine is around 1.4 plan is to continue his IV Lasix twice a day. 12/28/2018-patient creatinine is 1.51 slightly elevated compared to yesterday. Patient has stage III kidney disease urinary output is excellent. 12/29/2018-patient creatinine today 1.7, yesterday it was 1.5. On Lasix 40 mg twice daily plan is to decrease the Lasix to 40 mg daily and continue the potassium supplementation. Upper and lower extremities still edematous. He is on fluid restriction. 01/01/2019. Worsening creatinine. Nonoliguric. Electrolytes WNL. Nephrology following. 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 Patient is not in fluid overload. Well compensated at this time. 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 Patient is on IV Lasix 20 mg every 12 hours plan is to increase the Lasix to 40 every 12 and I will give albumin. Urinary output is 2.4 L yesterday with a negative fluid balance of 1700 mL. 12/26/2018-patient is on Lasix 40 mg IV twice a day and he has history of chronic systolic heart failure urinary output is good still have 2+ pedal edema involving the upper and lower extremities presently on Lasix 40 mg every 12 hours he received IV albumin last night. Urinary output is 2.4 L yesterday with negative fluid balance of 1750. To give another albumin supplementation today. 12/27/2018-chest x-ray indicates improving pulmonary edema and upper extremity lower extremity swelling is improved also present on Lasix 40 mg IV twice daily urinary output is 3.1 L with a negative fluid balance of 2.4 L. 12/28/2018-chest x-ray shows small left pleural effusion and pacemaker in place. Still have upper and lower extremity edema improving. Lower extremity edema is 2+. On IV Lasix 40 mg twice a day. 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 12/29/2018-post extubation chest x-ray stable. On examination still have upper and lower extremity edema present. Present on Lasix 40 mg IV twice daily creatinine is gradually worsening and it is 1.7 today. Plan is to discontinue Lasix to once a day and continue potassium supplementation 40 mg twice daily. pt CODE STATUS is DNR/DNI. 01/01/2019. Currently on beta-blockers and Entresto. (7) HTN (hypertension) 12/25/2018-patient blood pressure today is 172/65. Plan is to discontinue IV fluids and increase the Lasix to 40 twice a day and plan to give albumin. To closely monitor his blood pressures. 3+ edema is noted in the lower extremities. 12/26/2018-patient blood pressure today is 172/90 presently on Lasix 40 mg IV twice daily, Coreg 12.5 mg twice a day, Entresto. Plan is to continue the present management and is on hydralazine 10 mg every 4 PRN for blood pressure more than 150. 12/27/2018-blood pressure today is 162/90 improved from yesterday presently on IV Lasix 40 mg twice a day, Coreg 12.5 mg p.o. twice daily, Entresto twice a day. He is also on hydralazine 10 mg IV every 4 as needed for blood pressure. 12/28/2018-patient blood pressure today is 136/75. Stable. 12/29/2018-patient blood pressure this morning 138/54 stable. 01/01/2019. SBP is running in 130s. Has been on Coreg, diuretics, and IV hydralazine PRN. (8) Hyperkalemia Lactulose trial, follow-up chemistry (9) Pneumonia Bilateral infiltrate, empiric antibiotics, follow-up CBC and blood culture 12/24/2018-patient came in with healthcare associated pneumonia tracheal aspirate positive for H influenza presently on azithromycin, cefepime. vancomycin. Afebrile. WBC count is 6.9. Plan is to continue the present management. 12/25/2018-patient came in with healthcare associated pneumonia, tracheal aspirate positive for H influenza on azithromycin ,cefepime and vancomycin 12/26/2018-patient admitted with healthcare associated pneumonia, tracheal aspirate positive for H influenza presently is on azithromycin and vancomycin. a Febrile for the last several days. Plan is to complete the antibiotic course. 12/27/2018-patient is presently on azithromycin and vancomycin. Chest x-ray this morning did not suggestive of any pneumonia tracheal aspirate positive for H influenza will complete the antibiotic course. 12/28/2018-tracheal aspirate shows H influenza presently on azithromycin and vancomycin patient is afebrile plan is to discontinue the antibiotics. 12/29/2018-patient most likely admitted for hospital healthcare associated pneumonia treated with antibiotic therapy presently afebrile tracheal aspirate shows H. influenzae. Patient is on azithromycin, vancomycin and cefepime for last several days those medications are discontinued 48 hours ago. 01/01/2019. Current risk of recurrent aspiration pneumonia. Completed a course of IV antibiotics. Currently afebrile. WBC wnl. Antiboitics DC'd on 12/31/2018 (10) Thrombocytopenia Unclear etiology. Physical Exam Vital Signs: Temp Pulse Resp BP Pulse Ox 98.3 F 60 24 H 146/65 H 97 01/01/19 11:12 01/01/19 11:12 01/01/19 11:12 01/01/19 11:12 01/01/19 11:12 Intake & Output 12/31/18 01/01/19 01/02/19 06:59 06:59 06:59 Intake Total 480 1125 Output Total 1225 975 Balance -745 150 Weight 95.3 kg 95.3 kg General appearance: PRESENT: mild distress Head exam: PRESENT: atraumatic, normocephalic Respiratory exam: PRESENT: decreased breath sounds, rhonchi. ABSENT: rales, wheezes Cardiovascular exam: PRESENT: irregular rhythm. ABSENT: diastolic murmur, rubs, systolic murmur Neurological exam: PRESENT: altered - Lethargic arousable to verbal stimuli. Results Laboratory Results: 01/01/19 04:38 01/01/19 04:38 01/01/19 01/01/19 04:38 04:38 WBC 8.8 RBC 3.81 L Hgb 9.9 L Hct 31.0 L MCV 82 MCH 26.0 L MCHC 31.9 L RDW 19.1 H Plt Count 124 L Seg Neutrophils % 84.3 H Lymphocytes % 6.6 L Monocytes % 7.0 Eosinophils % 1.5 Basophils % 0.6 Absolute Neutrophils 7.4 Absolute Lymphocytes 0.6 Absolute Monocytes 0.6 Absolute Eosinophils 0.1 Absolute Basophils 0.1 Retic Count (auto) 0.91 Absolute Retic 0.035 Sodium 152.2 H Potassium 3.4 L Chloride 107 Carbon Dioxide 39 H Anion Gap 6 BUN 53 H Creatinine 2.04 H Est GFR ( Amer) 38 L Est GFR (Non-Af Amer) 31 L Glucose 128 H Calcium 9.0 Phosphorus 3.2 Iron 28.2 L TIBC 190 L % Saturation 15 Ferritin 360.00 Vitamin B12 > 1000.0 H Folate 7.91 12/18/18 12/19/18 12/19/18 22:35 01:10 12:04 Creatine Kinase < 20 L CK-MB (CK-2) Troponin I 0.183 0.181 NT-Pro-B Natriuret Pep 12/19/18 12/19/18 12/19/18 12:04 17:42 17:42 Creatine Kinase < 20 L CK-MB (CK-2) 0.84 0.59 Troponin I 0.107 0.095 NT-Pro-B Natriuret Pep 12/19/18 12/19/18 12/23/18 23:26 23:26 03:33 Creatine Kinase < 20 L CK-MB (CK-2) 0.67 Troponin I 0.093 2.060 NT-Pro-B Natriuret Pep 85827 H 12/30/18 12/31/18 05:13 05:17 Creatine Kinase CK-MB (CK-2) Troponin I NT-Pro-B Natriuret Pep 42010 H 70034 H Impressions: KUB X-Ray 12/23/18 00:00 IMPRESSION: Nasogastric tube tip in the stomach. Chest X-Ray 12/30/18 00:00 IMPRESSION: Increased bibasilar airspace disease and pleural effusions. Modified Barium Swallow 12/31/18 00:00 IMPRESSION: ASPIRATION WITH THIN AND NECTAR THICK CONSISTENCIES. PLEASE SEE SPEECH PATHOLOGIST REPORT FOR OTHER FINDINGS AND RECOMMENDATIONS. Transfer Plan - Time Spent with Patient Time spent with patient: Greater than 30 Minutes Qualifiers - * PATIENT BEING DISCHARGED WITH ANY OF THE FOLLOWING DIAGNOSIS: No
--- NOTE | 2019-01-01 15:31 | ADVANCED CARE ---
- Diagnosis (1) Comfort measures only status Diagnosis Current: Yes (2) Dysphagia Diagnosis Current: Yes (3) Acute hypercapnic respiratory failure Diagnosis Current: Yes (4) Atrial fibrillation with RVR Diagnosis Current: Yes (5) Chronic kidney disease, stage III (moderate) Diagnosis Current: Yes (6) Congestive heart failure Diagnosis Current: Yes (7) HTN (hypertension) Diagnosis Current: Yes (8) Hyperkalemia Diagnosis Current: Yes (9) Pneumonia Diagnosis Current: Yes (10) Thrombocytopenia Diagnosis Current: Yes (11) Acute encephalopathy Diagnosis Current: Yes Attendance: Valdez Craig MICHAELLorin and younger brother who was present at the bedside. Resuscitation Status: Comfort Measures Only Discussion: Had a conversation over the phone with Valdez Craig who is the POA and his younger brother who was present in the room. They have decided to transition care to inpatient hospice and meanwhile while waiting to be transferred to inpatient hospice they want to make him EMERGENCY RESPONSE TECHNICIAN. Care Planning Goals: Transition of care to EMERGENCY RESPONSE TECHNICIAN while pending transfer to inpatient hospice. Time Spent: 15
== END 2019-01-01 16:32 | disposition hospice, inpatient (51) | DRG 207 ==
LOC: ER 22:23 → EH 12-19 02:42 → ICU 12-19 03:39 → 3S 12-28 22:00
PROVIDERS: ADMIT Internal Medicine; ATTEND Internal Medicine
PROC: 5A09357 Assistance with Respiratory Ventilation, Less than 24 Consecutive Hours, Continuous Positive Airway Pressure (ICD-10-PCS; 2018-12-18)
PROC: 5A1955Z Respiratory Ventilation, Greater than 96 Consecutive Hours (ICD-10-PCS; principal; 2018-12-19)
PROC: 0BH17EZ Insertion of Endotracheal Airway into Trachea, Via Natural or Artificial Opening (ICD-10-PCS; 2018-12-19)
PROC: 5A09557 Assistance with Respiratory Ventilation, Greater than 96 Consecutive Hours, Continuous Positive Airway Pressure (ICD-10-PCS; 2018-12-27)
DX: J96.02 Acute respiratory failure with hypercapnia (principal); I50.23 Acute on chronic systolic (congestive) heart failure; J18.1 Lobar pneumonia, unspecified organism; I13.0 Hypertensive heart and chronic kidney disease with heart failure and stage 1 through stage 4 chronic kidney disease, or unspecified chronic kidney disease; I42.0 Dilated cardiomyopathy; E87.0 Hyperosmolality and hypernatremia; N18.4 Chronic kidney disease, stage 4 (severe); J96.01 Acute respiratory failure with hypoxia; Z78.1 Physical restraint status; Z66 Do not resuscitate; Z51.5 Encounter for palliative care; E87.5 Hyperkalemia; R13.10 Dysphagia, unspecified; D69.6 Thrombocytopenia, unspecified; I25.10 Atherosclerotic heart disease of native coronary artery without angina pectoris; I25.5 Ischemic cardiomyopathy; E11.22 Type 2 diabetes mellitus with diabetic chronic kidney disease; F03.90 Unspecified dementia, unspecified severity, without behavioral disturbance, psychotic disturbance, mood disturbance, and anxiety; E66.9 Obesity, unspecified; I45.10 Unspecified right bundle-branch block; I48.2 Chronic atrial fibrillation; D63.1 Anemia in chronic kidney disease; B96.3 Hemophilus influenzae [H. influenzae] as the cause of diseases classified elsewhere; B95.2 Enterococcus as the cause of diseases classified elsewhere; I25.2 Old myocardial infarction; Z95.1 Presence of aortocoronary bypass graft; Z79.82 Long term (current) use of aspirin; Z79.4 Long term (current) use of insulin; Z79.899 Other long term (current) drug therapy; Z95.810 Presence of automatic (implantable) cardiac defibrillator; Z88.0 Allergy status to penicillin; Z88.8 Allergy status to other drugs, medicaments and biological substances; Z88.1 Allergy status to other antibiotic agents; Z88.3 Allergy status to other anti-infective agents; Z91.02 Food additives allergy status; Z82.49 Family history of ischemic heart disease and other diseases of the circulatory system
CPT/HCPCS: 36415; 71045; 74018; 74230; 80048; 80053; 80076; 80202; 81001; 82550; 82553; 82607; 82728; 82746; 82803; 82962; 83540; 83550; 83735; 83880; 84100; 84132; 84439; 84443; 84478; 84481; 84484; 85025; 85045; 87040; 87070; 87077; 87086; 87186; 87205; 93005; 93010; 94002; 94003; 94640; 94660; 96374; 99291; 99292; J0282; J0456; J0692; J1160; J1644; J1815; J1940; J2060; J2250; J2270; J2930; J3010; J3370; J3480; J3490; J7030; J7060; J7620; P9047; S0164